=== PATIENT | male | born 1940 | race Caucasian/White ===

== ENCOUNTER 2017-05-27 17:41 | Inpatient (IN) | payer MEDICARE ==
[~2017-05-27] VITALS: Ht 165.1 cm; Wt 52.6 kg
--- NOTE | 2017-05-27 17:50 | NUR ---
DON FROM [facility] DT DESATURATION AND ALTERED MENTAL STATUS. PATIENT IS AWAKE, HOWEVER CONFUSED. APPEARS IN MILD DISTRESS, SATING 95% ON ROOM AIR,. PT IS AFEBRILE. CONNECTED PT TO TELE MONITOR. PENDING MD JASMINE
--- NOTE | 2017-05-27 18:30 | NUR ---
GRADER MARKER AT BEDSIDE FOR BLOOD DRAW.
[2017-05-27 18:34] LABS: BASOPHILS # (AUTO) 0.1 /CMM (0.0-0.2); BASOPHILS % (AUTO) 0.9 % (0.0-2.0); EOSINOPHILS # (AUTO) 0.1 /CMM (0.0-0.7); EOSINOPHILS % (AUTO) 0.5 % (0.0-6.0); HEMATOCRIT 44 % (39-51); HEMOGLOBIN 14.4 g/dL (13.5-17.5); LYMPHOCYTES # (AUTO) 0.8 /CMM (0.8-4.8); LYMPHOCYTES % (AUTO) 4.8 % (20.0-44.0); MEAN CORPUSCULAR HEMOGLOBIN 31 PG (26.0-33.0); MEAN CORPUSCULAR HGB CONC 33 g/dl (31.0-36.0); MEAN CORPUSCULAR VOLUME 96 fL (80-96); MONOCYTES # (AUTO) 0.9 /CMM (0.1-1.30); MONOCYTES % (AUTO) 5.6 % (2.0-12.0); NEUTROPHILS # (AUTO) 13.8 /CMM (1.8-8.9); NEUTROPHILS % (AUTO) 88.2 % (43.0-81.0); PLATELET COUNT (AUTO) 279 /CMM (150-450); RDW COEFFICIENT OF VARIATION 13.5 (11.5-15.0); RED BLOOD CELL COUNT(AUTO) 4.59 MIL/uL (4.5-6.0); WHITE BLOOD COUNT (AUTO) 15.7 K/uL (4.3-11.0)
--- NOTE | 2017-05-27 18:36 | NUR ---
ACCOUNT DIRECTOR AT BEDSIDE.
[2017-05-27 18:53] LABS: INR 1.07 (0.87-1.13); PROTHROMBIN TIME 11.1 SECS (9.5-12.7)
[2017-05-27 19:27] LABS: BAND % (MANUAL) 5 % (0.0-5.0); EOSINOPHILS % (MANUAL) 2 % (0-4); LYMPHOCYTES % (MANUAL) 8 % (16-48); MONOCYTES % (MANUAL) 6 % (0-11.0); NEUTROPHILS % (MANUAL) 79 (42-76)
--- NOTE | 2017-05-27 19:32 | NUR ---
URINE OBTAINED VIA STRAIGHT CATH PER MD ORDERS AND SENT TO LAB.
--- NOTE | 2017-05-27 19:37 | NUR ---
REPORT GIVEN TO AR WEBSTER FOR KRISTOFER.
[2017-05-27 19:39] LABS: TROPONIN I 0.034 ng/mL (0.00-0.056)
[2017-05-27 19:43] LABS: APPEARANCE,URINE Clear (CLEAR); BILIRUBIN,URINE SMALL (NEGATIVE); BLOOD, URINE Small Ery/uL (NEGATIVE); COLOR,URINE Yellow (YELLOW); KETONES,URINE 15 (NEGATIVE); LEUKOCYTE ESTERASE ,URINE Small (NEGATIVE); NITRITE, URINE Negative (NEGATIVE); PH,URINE 5.5 (5.0-8.0); PROTEIN,URINE 100 mg/dl (NEGATIVE); UGLUCOSE Negative (NEGATIVE); UROBILINOGEN,URINE 0.2 EU/dL (0.2)
[2017-05-27 19:45] LABS: ALANINE AMINOTRANSFERASE 20 U/L (12-78); ALBUMIN 3.8 g/dL (3.4-5.0); ALKALINE PHOSPHATASE 88 U/L (46-116); ASPARTATE AMINOTRANSFERASE 17 U/L (15-37); BILIRUBIN,DIRECT 0.2 mg/dL (0.0-0.2); BILIRUBIN,TOTAL 0.7 mg/dL (0.2-1.0); CARBON DIOXIDE 25 mmol/L (21-32); GLUCOSE 105 mg/dL (74-106); TOTAL PROTEIN, SERUM 7.7 g/dL (6.4-8.2); UREA NITROGEN, BLOOD 59 mg/dL (7-18)
--- NOTE | 2017-05-27 19:46 | NUR ---
CALLED NURSING SUP. FOR TELE BED
[2017-05-27 19:52] LABS: SODIUM SERUM 166 mmol/L (136-145)
[2017-05-27 19:53] LABS: CHLORIDE 127 mmol/L (98-107)
[2017-05-27 20:21] LABS: BACTERIA,URINE Many /HPF (None Seen); SQUAMOUS EPITHELIAL CELL,UR Few /HPF (None Seen)
[2017-05-27] MEDS ORDERED: PIPERACILLIN /TAZOBACTAM 3.375 G in IV D5W 50 ML IV ONE (20:30)
[2017-05-27] MEDS ORDERED: LEVOFLOXACIN 750 MG /D5W 150ML 150 ML IV ONE ×2 (20:30)
[2017-05-27] MEDS ORDERED: PIPERACILLIN /TAZOBACTAM 3.375 G VIAL IV ONE (20:31)
[2017-05-27] MEDS ORDERED: IV NS 0.9% 500 ML BAG IV ONE (21:00)
[2017-05-27] MEDS ORDERED: CARB1TAB40 PO (21:04)
[2017-05-27] MEDS ORDERED: AMLO5TAB4 PO (21:04)
[2017-05-27] MEDS ORDERED: METO25TA6 PO (21:04)
[2017-05-27] MEDS ORDERED: NA P133E RC (21:04)
[2017-05-27] MEDS ORDERED: ACET-868 PO (21:04)
[2017-05-27] MEDS ORDERED: AMAN100T PO (21:04)
[2017-05-27] MEDS ORDERED: CARB1TAB24 PO (21:04)
[2017-05-27] MEDS ORDERED: DOCU-25 PO (21:04)
[2017-05-27] MEDS ORDERED: VITAMIN D2 PO (21:04)
[2017-05-27] MEDS ORDERED: MAGN2400 PO (21:04)
[2017-05-27] MEDS ORDERED: BISA10SU8 RC (21:04)
[2017-05-27] MEDS ORDERED: RIVA10TA PO (21:04)
--- NOTE | 2017-05-27 21:42 | NUR ---
Report given to Jose JOYNER for admission and ji.
--- NOTE | 2017-05-27 22:05 | NUR ---
Transferred patient to tele 116 via als protocol, no incident noted.
[2017-05-27] MEDS ORDERED: CEFTRIAXONE 1 G VIAL ONE (22:15)
[2017-05-27 22:30] VITALS: BP 129/74
[2017-05-27] MEDS ORDERED: ACETAMINOPHEN 650 MG/SUPP.RECT RC PRN (22:30)
[2017-05-27] MEDS ORDERED: ENOXAPARIN SODIUM 30 MG/0.3 ML DISP.SYRIN SQ SCH (22:30)
[2017-05-27] MEDS ORDERED: ONDANSETRON HCL/PF 4 MG/2 ML VIAL IV PRN (22:30)
[2017-05-27] MEDS ORDERED: NA PHOS,M-B/NA PHOS,DI-BA 1 EA ENEMA RC PRN (23:00)
[2017-05-27] MEDS ORDERED: BISACODYL SUPP (10 MG) 10 MG/SUPP.RECT SUPP.RECT RC PRN (23:00)
--- NOTE | 2017-05-27 23:00 | NUR ---
Received patient from ED via gurney awake but aphasic and confused.Transferred to bed and made comfortable.Dx:SEPSIS,UTI.VS stable.Tele SR 90.with O2 2L NC saturation 97%.Respiration even and unlabored.No s/s of pain noted Admission assessment done.Fall,skin and aspiration precaution implemented.Turned and repositioned. Continue monitoring.Call light within easy reach.
[2017-05-27] MEDS: CEFTRIAXONE 1 G in IV D5W 50 ML IV SCH (23:01)
[2017-05-27] MEDS: IV D5/0.45 NACL 1,000 ML IV PRN (23:02)
[2017-05-27] MEDS ORDERED: ENOXAPARIN SODIUM 30 MG/0.3 ML DISP.SYRIN ONE (23:07)
[2017-05-27] MEDS ORDERED: PANTOPRAZOLE 40 MG VIAL ONE (23:07)
[2017-05-27] MEDS: PANTOPRAZOLE 40 MG VIAL IV SCH (23:33)
[2017-05-28 04:00] VITALS: BP 116/70
--- NOTE | 2017-05-28 06:30 | NUR ---
Patient status unchanged.VS stable.No urine output noted during the shift.Bladder scan done only 28 ml.IVF infusing well.Paged paged for order.Will endorsed to AM shift RN to follow for continuity of care.No distress noted.
[2017-05-28] MEDS ORDERED: IV NS 0.9% 500 ML BAG IV ONE (07:00)
--- NOTE | 2017-05-28 07:02 | NUR ---
returned call and updated of patient status.Orders received and carried out. NS 500 ml bolus started,Bagley Catheter Fr # 16 inserted by AR Caban no urine output noted at this time.Will endorse to incoming RN for continuity of care.
--- NOTE | 2017-05-28 07:10 | NUR ---
RN INITIAL NOTES RECEIVED PT IN BED, HOB ELEVATED. OPEN EYES UPON TACTILE STIMULI. ON 02 AT 2LPM VIA NC. NO RESPIRATORY DISTRESS NOTED. NO SOB NOTED. NO SIGNS OF PAIN NOTED. ON TELE MONITOR. IV LINES IN PLACE. NS 500ML BOLUS INFUSING. FC IN PLACE. NO OUTPUT NOTED, MD AWARE. WILL CONTINUE TO MONITOR. WILL INSERT NGT PER MD ORDER. BLE ELEVATED. PT COMFORTABLE. WILL CLOSELY MONITOR.
[2017-05-28 07:45] LABS: BASOPHILS % (AUTO) 0.1 % (0.0-2.0); EOSINOPHILS # (AUTO) 0.1 /CMM (0.0-0.7); EOSINOPHILS % (AUTO) 0.7 % (0.0-6.0); HEMATOCRIT 36 % (39-51); HEMOGLOBIN 11.9 g/dL (13.5-17.5); LYMPHOCYTES # (AUTO) 0.6 /CMM (0.8-4.8); LYMPHOCYTES % (AUTO) 6.2 % (20.0-44.0); MEAN CORPUSCULAR HEMOGLOBIN 32 PG (26.0-33.0); MEAN CORPUSCULAR HGB CONC 33 g/dl (31.0-36.0); MEAN CORPUSCULAR VOLUME 96 fL (80-96); MONOCYTES # (AUTO) 0.7 /CMM (0.1-1.30); MONOCYTES % (AUTO) 6.6 % (2.0-12.0); NEUTROPHILS # (AUTO) 8.9 /CMM (1.8-8.9); NEUTROPHILS % (AUTO) 86.4 % (43.0-81.0); PLATELET COUNT (AUTO) 197 /CMM (150-450); RDW COEFFICIENT OF VARIATION 14.4 (11.5-15.0); RED BLOOD CELL COUNT(AUTO) 3.73 MIL/uL (4.5-6.0); WHITE BLOOD COUNT (AUTO) 10.3 K/uL (4.3-11.0)
[2017-05-28 08:00] VITALS: BP 131/71
--- NOTE | 2017-05-28 08:00 | NUR ---
RN NOTES CALLED DR. CAM REGARDING CRITICAL VALUE OF SODIUM: 165 FROM 166 AND CHLORIDE 130 FROM 127. PAGED. AWAITING CALL BACK. NO CHANGE IN LOC NOTED. WILL CLOSELY MONITOR
[2017-05-28 08:07] LABS: CALCIUM, SERUM 8.6 mg/dL (8.5-10.1); CARBON DIOXIDE 24 mmol/L (21-32); CREATININE 1.9 mg/dL (0.6-1.3); GLUCOSE 116 mg/dL (74-106); MAGNESIUM 2.4 mg/dL (1.8-2.4); PHOSPHORUS 1.8 mg/dL (2.5-4.9); POTASSIUM 3.3 mmol/L (3.5-5.1); UREA NITROGEN, BLOOD 51 mg/dL (7-18)
[2017-05-28 08:15] LABS: SODIUM SERUM 165 mmol/L (136-145)
[2017-05-28 08:16] LABS: CHLORIDE 130 mmol/L (98-107)
[2017-05-28] MEDS: IV D5/0.45 NACL 1,000 ML IV PRN (08:42)
--- NOTE | 2017-05-28 09:16 | NUR ---
WOUND CARE CONSULT: PT PRESENTS EXTREMELY THIN AND BONY WITH SEVERAL DRY ABRASIONS NOTED TO LOWER EXTREMITIES. RECOMMENDATIONS MADE FOR SKIN PROTECTION. DISCUSSED WITH NURSING STAFF. CURRENT QUYEN SCORE IS 12. PT TO BE PLACED ON ISOFLEX LOW AIRLOSS BED. ALL SKIN PROTECTION MEASURES IN PLACE. WILL SEE PRN. SIMMONS IN AGREEMENT WITH PLAN OF CARE. Addendum: 05/28/17 at 0917 by BELINDA ASHFORD WNDNU Amended: Links added.
[2017-05-28] MEDS ORDERED: ACETAMINOPHEN 325 MG TABLET PO PRN (09:30)
[2017-05-28] MEDS ORDERED: CARBIDOPA/LEVODOPA 25/250 MG 1 UDTAB PO SCH (09:30)
[2017-05-28] MEDS ORDERED: NA PHOS,M-B/NA PHOS,DI-BA 1 EA ENEMA RC PRN (09:30)
[2017-05-28] MEDS ORDERED: MAGNESIUM HYDROXIDE 30 ML UDC PO PRN (09:30)
[2017-05-28] MEDS ORDERED: BISACODYL SUPP (10 MG) 10 MG/SUPP.RECT SUPP.RECT RC PRN (09:30)
[2017-05-28] MEDS ORDERED: Z GUARD REMEDY 2 OZ OINT TP PRN (09:30)
[2017-05-28] MEDS ORDERED: DOCUSATE SODIUM 100 MG CAPSULE PO SCH (09:30)
[2017-05-28] MEDS: METOPROLOL TARTRATE 25 MG TABLET PO SCH (10:26)
[2017-05-28] MEDS: AMANTADINE HCL 100 MG CAPSULE PO SCH ×2 (10:26→16:34)
[2017-05-28] MEDS ORDERED: IV D5/0.45 NACL 1,000 ML IV PRN (10:30)
[2017-05-28] MEDS: Z GUARD REMEDY 2 OZ OINT TP SCH (11:18)
[2017-05-28 12:00] VITALS: BP 150/63
[2017-05-28] MEDS: Potassium Chloride 20 MEQ in IV D5W 1,000 ML IV PRN ×2 (13:46→19:59)
--- NOTE | 2017-05-28 14:00 | NUR ---
RN NOTES SEEN AND EXAMINED BY DR. CAM. AWARE OF CURRENT LAB VALUES: WBC 10.3, HGB 11.9, HCT 36, SODIUM 165 FROM 166, POTASSIUM 3.3, CHLORIDE 130, BUN 51, CREA 1.9. PT ON IVF: D5W+KCL 20MEQ AT 150ML/HR. DIETARY RECOMMENDATION RELAYED TO MD AND ORDERED MVI AND THIAMINE QD AND GTF: FIBERSOURCE AT 15ML/HR, GOAL 45ML/HR. ORDERS NOTED AND CARRIED OUT.
[2017-05-28] MEDS: FIBERSOURCE HN 1,000 ML BOTTLE GT PRN (15:27)
[2017-05-28 16:00] VITALS: BP_SYST 123; BP_SYST 93; BP_DIAS 51
[2017-05-28] MEDS ORDERED: K PHOS NEUTRAL 250 MG TABLET PO ONE (16:30)
[2017-05-28] MEDS: CARBIDOPA/LEVODOPA 25/250 MG 1 UDTAB PO SCH (16:32)
[2017-05-28] MEDS: RIVAROXABAN 10 MG TABLET PO SCH (16:41)
--- NOTE | 2017-05-28 19:02 | NUR ---
RN CLOSING NOTES NO CHANGE IN LOC NOTED. ON 02 AT 2LPM VIA NC. NO RESPIRATORY DISTRESS NOTED. NO SIGNS OF PAIN NOTED. OG IN PLACE. TOELRATING GTF WELL. NO RESIDUAL NOTED. IV LINES IN PLACE. TOLERATING IVF WELL. FC IN PLACE. LOW OUTPUT NOTED, MD AWARE. KEPT CLEAN AND DRY. REPOSITIONED Q2. BLE ELEVATED. WILL ENDORSE FOR CONTINUITY OF CARE.
--- NOTE | 2017-05-28 19:30 | NUR ---
DEVORA RN INITIAL NOTE RECEIVED REPORT FROM NAKUL JOYNER. PT IN BED AWAKE. PT IS RESTRAINED BUT NGT IS OUT. LUNG SOUNDS RHONCHI. BOWEL SOUNDS PRESENT. INCONTINENT TO STOOL AND URINE. SACRAL REDNESS. IV PATENT AND INTACT. PULSES PRESENT. WILL REATTEMPT NGT INSERTION. BED IN LOW LOCKED POSITION. WILL CONTINUE TO MONITOR.
--- NOTE | 2017-05-28 19:45 | NUR ---
DEVORA RN NGT PLACED. CONFIRMED PLACEMENT WITH AUSCULTAION. WILL ORDER XRAY FOR PLACEMENT PRIOR TO STARTING FEEDING. WILL CONTINUE TO MONITOR.
[2017-05-28 20:00] VITALS: BP 92/52
[2017-05-28] MEDS ORDERED: ENOXAPARIN SODIUM 30 MG/0.3 ML DISP.SYRIN SQ SCH ×2 (21:00)
[2017-05-28] MEDS: PANTOPRAZOLE 40 MG VIAL IV SCH (22:29)
[2017-05-28] MEDS: CEFTRIAXONE 1 G in IV D5W 50 ML IV SCH (22:29)
--- NOTE | 2017-05-28 22:30 | NUR ---
DEVORA RN REVIEWED CXR. RECOMMENDED TO REMOVE BGT DUE TO COILING. WILL REMOVE AND REATTEMPT PLACEMENT. WILL CONTINUE TO MONITOR.
[2017-05-28] MEDS ORDERED: CEFTRIAXONE 1 G in IV D5W 50 ML IV SCH (23:00)
[2017-05-29] VITALS: BP 119/63
--- NOTE | 2017-05-29 | NUR ---
DEVORA RN RE ATTEMPTED NGT PLACEMENT. SUCCESSFUL PLACEMENT WITH AUSCULTATION, CXR ORDERED FOR POSITIVE PLACEMENT. WILL RESUME FEEDING SOON NGT IN PLACE. WILL CONTINUE TO MONITOR.
[2017-05-29] MEDS: Potassium Chloride 20 MEQ in IV D5W 1,000 ML IV PRN ×3 (03:55→22:00)
[2017-05-29 04:00] VITALS: BP 120/58
--- NOTE | 2017-05-29 07:05 | NUR ---
DEVORA INITIAL NOTE RECEIVED PT AWAKE, UNABLE TO FOLLOW SIMPLE COMMANDS. BILATERAL SOFT WRIST RESTRAINTS IN PLACE. ON 2L NC, RESPIRATIONS EVEN AND UNLABORED, NO SOB OR DISTRESS PRESENT. TELE MONITOR REVEALS SINUS RHYTHM,HR= 74. LEBLANC CATHETER PRESENT AND DRAINING TO GRAVITY. LEFT NARE NGT RUNNING FIBERSOURCE @ 15 ML/HR. BOTH IVS NON-FUNCTIONAL (INFILTRATED/ LEAKING), NEW IV TO BE INSERTED. SAFETY MEASURES TAKEN: BED LOCKED AND IN LOW POSITION, SIDE RAILS UP X2 AND BED ALARM ON, WILL CONTINUE TO MONITOR.
[2017-05-29 08:00] VITALS: BP 118/56
[2017-05-29 08:32] LABS: CALCIUM, SERUM 8.6 mg/dL (8.5-10.1); CARBON DIOXIDE 22 mmol/L (21-32); CHLORIDE 120 mmol/L (98-107); CREATININE 1.6 mg/dL (0.6-1.3); GLUCOSE 155 mg/dL (74-106); POTASSIUM 3.3 mmol/L (3.5-5.1); SODIUM SERUM 153 mmol/L (136-145); UREA NITROGEN, BLOOD 35 mg/dL (7-18)
[2017-05-29 08:44] LABS: BASOPHILS % (AUTO) 0.1 % (0.0-2.0); EOSINOPHILS # (AUTO) 0.1 /CMM (0.0-0.7); EOSINOPHILS % (AUTO) 0.9 % (0.0-6.0); HEMATOCRIT 35 % (39-51); HEMOGLOBIN 11.5 g/dL (13.5-17.5); LYMPHOCYTES # (AUTO) 0.6 /CMM (0.8-4.8); LYMPHOCYTES % (AUTO) 4.3 % (20.0-44.0); MEAN CORPUSCULAR HEMOGLOBIN 32 PG (26.0-33.0); MEAN CORPUSCULAR HGB CONC 33 g/dl (31.0-36.0); MEAN CORPUSCULAR VOLUME 96 fL (80-96); MONOCYTES # (AUTO) 0.5 /CMM (0.1-1.30); MONOCYTES % (AUTO) 3.7 % (2.0-12.0); NEUTROPHILS # (AUTO) 13.4 /CMM (1.8-8.9); PLATELET COUNT (AUTO) 154 /CMM (150-450); RDW COEFFICIENT OF VARIATION 14.3 (11.5-15.0); RED BLOOD CELL COUNT(AUTO) 3.61 MIL/uL (4.5-6.0); WHITE BLOOD COUNT (AUTO) 14.7 K/uL (4.3-11.0)
[2017-05-29] MEDS: CARBIDOPA/LEVODOPA 25/250 MG 1 UDTAB PO SCH ×2 (08:49→16:09)
[2017-05-29] MEDS: AMANTADINE HCL 100 MG CAPSULE PO SCH ×2 (08:49→16:09)
[2017-05-29] MEDS: MULTIVITAMINS,THERAGRAN 1 UDTAB TABLET NG SCH (08:49)
[2017-05-29] MEDS: DOCUSATE SODIUM LIQ 100 MG/10 ML UDC NG SCH (08:49)
[2017-05-29] MEDS: Z GUARD REMEDY 2 OZ OINT TP SCH (08:49)
[2017-05-29] MEDS: THIAMINE HCL 100 MG TABLET NG SCH (08:49)
[2017-05-29] MEDS: METOPROLOL TARTRATE 25 MG TABLET PO SCH (08:50)
[2017-05-29] MEDS ORDERED: PANTOPRAZOLE 40 MG VIAL IV SCH (09:00)
[2017-05-29 12:00] VITALS: BP_SYST 103; BP_SYST 91; BP_DIAS 53; BP_DIAS 55
[2017-05-29] MEDS ORDERED: POTASSIUM CHLORIDE 10 MEQ/50 ML PREMIXED IVPB FOR PERIPHERAL LINE IV ONE (13:15)
[2017-05-29 16:00] VITALS: BP 110/62
[2017-05-29] MEDS: RIVAROXABAN 10 MG TABLET PO SCH (16:08)
[2017-05-29] MEDS: FIBERSOURCE HN 1,000 ML BOTTLE GT PRN (16:08)
[2017-05-29 20:00] VITALS: BP_SYST 105; BP_SYST 120; BP_DIAS 55; BP_DIAS 73
--- NOTE | 2017-05-29 21:27 | NUR ---
TILE MECHANIC HELPER. INITIAL ASSESSMENT. RECEIVED THE PT REST ON THE BED. PT IS LETHARGIC. DOES NOT FOLLOW COMMANDS. OXYGEN 2L VIA NASAL CANNULA. SAT 98%. NO ACUTE DISTRESS NOTED. HEAD MEN'S TENNIS COACH SHOWING NSR, IV LT FA D5WIN POTASSIUM 20MEQ 150ML/H. LT NARE NGT INTACT. FIBER SOURCE 60ML/H. HOB ELEVATED. JOSEPHINE SOFT WRIST RESTRAINT CHECKED AND RELEASED. NO INJURY OR REDNESS NOTED. TURN AND REPOSITION Q2H. FC PATENT. WILL CONTINUE TO MONITOR VITALS.
[2017-05-29] MEDS: CEFTRIAXONE 1 G in IV D5W 50 ML IV SCH (22:00)
[2017-05-29] MEDS: PANTOPRAZOLE 40 MG VIAL IV SCH (22:00)
[2017-05-30] VITALS: BP_SYST 110; BP_SYST 126; BP_DIAS 56; BP_DIAS 68
--- NOTE | 2017-05-30 03:09 | NUR ---
RN NOTE AM CARE, ORAL CARE, BED BATH GIVEN. LINEN CHANGED, REMAINING SAME OXYGEN TOLERATED WELL. SAT 98%. NO ACUTE DISTRESS NOTED. INTERPRETER FOR THE DEAF SHOWING NSR. IV LT HAND 20G. IVF D5NS IN 20 MEQ POTASSIUM 150ML/H. FC PATENT. HOB ELEVATED. TURN AND REPOSITION Q2H. NGT FEEDING TOLERATED WELL. WILL CONTINUE TO MONITOR VITALS.
[2017-05-30 04:00] VITALS: BP_SYST 120; BP_SYST 136; BP_DIAS 70
[2017-05-30] MEDS: Potassium Chloride 20 MEQ in IV D5W 1,000 ML IV PRN ×2 (05:49→16:50)
--- NOTE | 2017-05-30 07:00 | NUR ---
SOFTWARE TEST MANAGER NOTE: RECEIVED PATIENT RESTING IN BED. PATIENT IS LETHARGIC. ON 2LPM O2 VIA NC, RESPIRATIONS EVEN AND UNLABORED WITH NO SOB NOTED. ON TELE WITH SR BBB, 74. LFA IV RUNNING WITH D5W +20KCL AT 150CC/HR. L NARE NGT INTACT WITH FIBERSOURCE RUNNING AT 15ML/HR. BL SOFT WRIST RESTRAINTS WITH PULSES PRESENT. LEBLANC CATH DRAINING TO GRAVITY WITH YELLOW URINE. DVT PUMPS NOTED. HOB ELEVATED, BED LOW, SIDE RAILS UP AND CALL LIGHT WITHIN REACH. WILL CONT TO MONITOR.
[2017-05-30 08:00] VITALS: BP 109/55
[2017-05-30 10:15] LABS: EOSINOPHILS # (AUTO) 0.3 /CMM (0.0-0.7); EOSINOPHILS % (AUTO) 1.4 % (0.0-6.0); HEMATOCRIT 34 % (39-51); HEMOGLOBIN 11.4 g/dL (13.5-17.5); LYMPHOCYTES # (AUTO) 0.6 /CMM (0.8-4.8); LYMPHOCYTES % (AUTO) 3.1 % (20.0-44.0); MEAN CORPUSCULAR HEMOGLOBIN 32 PG (26.0-33.0); MEAN CORPUSCULAR HGB CONC 34 g/dl (31.0-36.0); MEAN CORPUSCULAR VOLUME 96 fL (80-96); MONOCYTES # (AUTO) 0.7 /CMM (0.1-1.30); MONOCYTES % (AUTO) 3.6 % (2.0-12.0); NEUTROPHILS # (AUTO) 17.3 /CMM (1.8-8.9); NEUTROPHILS % (AUTO) 91.9 % (43.0-81.0); PLATELET COUNT (AUTO) 136 /CMM (150-450); WHITE BLOOD COUNT (AUTO) 18.8 K/uL (4.3-11.0)
[2017-05-30 10:27] LABS: CALCIUM, SERUM 8.3 mg/dL (8.5-10.1); CARBON DIOXIDE 23 mmol/L (21-32); CHLORIDE 111 mmol/L (98-107); CREATININE 1.1 mg/dL (0.6-1.3); GLUCOSE 163 mg/dL (74-106); POTASSIUM 3.7 mmol/L (3.5-5.1); SODIUM SERUM 143 mmol/L (136-145); UREA NITROGEN, BLOOD 21 mg/dL (7-18)
[2017-05-30 10:32] LABS: ALANINE AMINOTRANSFERASE 16 U/L (12-78); ALBUMIN 2.1 g/dL (3.4-5.0); ALKALINE PHOSPHATASE 72 U/L (46-116); ASPARTATE AMINOTRANSFERASE 15 U/L (15-37); BILIRUBIN,TOTAL 0.5 mg/dL (0.2-1.0); TOTAL PROTEIN, SERUM 5.4 g/dL (6.4-8.2)
[2017-05-30] MEDS: CARBIDOPA/LEVODOPA 25/250 MG 1 UDTAB PO SCH ×2 (12:29→16:47)
[2017-05-30] MEDS: MULTIVITAMINS,THERAGRAN 1 UDTAB TABLET NG SCH (12:29)
[2017-05-30] MEDS: THIAMINE HCL 100 MG TABLET NG SCH (12:29)
[2017-05-30] MEDS: AMANTADINE HCL 100 MG CAPSULE PO SCH ×2 (12:29→16:47)
[2017-05-30] MEDS: DOCUSATE SODIUM LIQ 100 MG/10 ML UDC NG SCH (12:30)
[2017-05-30] MEDS: Z GUARD REMEDY 2 OZ OINT TP SCH (12:32)
[2017-05-30] MEDS: METOPROLOL TARTRATE 25 MG TABLET PO SCH (12:43)
[2017-05-30 16:00] VITALS: BP 95/52
[2017-05-30] MEDS: RIVAROXABAN 10 MG TABLET PO SCH (16:49)
[2017-05-30] MEDS: FIBERSOURCE HN 1,000 ML BOTTLE GT PRN (18:00)
--- NOTE | 2017-05-30 18:23 | NUR ---
DEVORA RN NOTE: NO ACUTE CHANGES DURING SHIFT. ON TELE MONITOR WITH SR 76. LFA IV RUNNING WITH D5W + 20KCL AT 150CC/HR. L NARE NGT PATENT WITH FIBERSOURCE RUNNING AT 25ML/HR. LEBLANC CATH DRAINING TO GRAVITY. BL ARM SLEEVES ON. ORDERS CARRIED OUT. HOB ELEVATED, BED LOW, LOCKED, X2 SIDE RAILS UP AND CALL LIGHT WITHIN REACH. WILL ENDORSE TO ANIMAL RESCUER NURSE FOR KRISTOFER.
[2017-05-30 20:00] VITALS: BP 114/63
--- NOTE | 2017-05-30 20:00 | NUR ---
THEATRICAL PERFORMER - REC'D PT. QUIET, PT. CAN ANSWER SLOWLY TO QUESTIONS ASKED. PT. HAS BEEN KNOWN TO YELL ALOUD IF HE NEEDS SOMETHING. VSS. AFEBRILE. LEBLANC CATH TO GRAVITY. HEART MONITOR SHOWS SR/70'S & SBP'S IN THE TEENS. PT.IS ON O2/2L/NC W/O2 SATS AT 98%. LEFT NARES NGT HAD FIBERSOURCE INFUSING AT 25CC/HR. GOAL IS 45CC/HR. NO RESIDUALS NOTED. LEBLANC CATH TO GRAVITY. ALL PULSES PALPABLE X 4 EXT. PT. HAS "SLEEVES COVERING BUE'S/LOWER PART OF ARMS. PIV TO LFA HAD D5W W/20 MEQ KCL INFUSING AT 150CC/HR VIA CANTU PUMP. PUMP ALARMS SET. CONT.POC.
[2017-05-30] MEDS: PANTOPRAZOLE 40 MG VIAL IV SCH (22:13)
[2017-05-30] MEDS: CEFTRIAXONE 1 G in IV D5W 50 ML IV SCH (22:13)
[2017-05-31] VITALS: BP 112/61
--- NOTE | 2017-05-31 | NUR ---
JAVA MANAGER - NO CHANGES FROM INITIAL ASSESSMENT. AT 22:00, FIBERSOURCE TF WAS INCREASED TO 35CC/HR. WILL SEE IF PT. CAN TOLERATE FDG. X 4 HRS. THEN INCREASE TO 45CC/HR/GOAL. +PLACEMENT VIA LEFT NARES NGT AUSC. PT.WAS ADM. A COMPLETE BEDBATH AT SC. W/ORAL,NGT,EMMY & SKIN/WOUND CARE ADM. CONT.POC.
[2017-05-31] MEDS: Potassium Chloride 20 MEQ in IV D5W 1,000 ML IV PRN ×2 (01:13→21:59)
[2017-05-31 04:00] VITALS: BP 118/66
--- NOTE | 2017-05-31 04:00 | NUR ---
ASSISTANT INFANT TEACHER - PT'S ONLY PIV INFILTRATED. MANY ATTEMPTS TO RESTART PIV BY SEVERAL RN'S WERE UNSUCCESSFUL. RIZWAN-DONNA PHONED TO LET RN'S AILYN &/OR DANNIE PLACED MIDLINE/VS/PICC LINE. WILL ENDORSE TO DAYSHIFT RN. CONT.POC.
--- NOTE | 2017-05-31 07:05 | NUR ---
RN INITIAL NOTE PATIENT RECEIVED IN BED RESTING. NO S/S OF PAIN OR DISCOMFORT. PATIENT IS NONVERBAL. SINUS RHYTHM ON TELE MONITOR. RESPIRATIONS ARE EVEN AND UNLABORED. NO S/S OF RESPIRATORY DISTRESS OR SOB. SATING WELL ON 2L NASAL CANULA LEBLANC CATHETER DRAINING TO GRAVITY. NG TUBE PATENT. PLACEMENT VERIFIED. TOLERATING FEEDING WELL. SKIN IS WARM AND DRY TO TOUCH. SAFETY PRECAUTIONS IMPLEMENTED, BED IN LOCKED, LOW POSITION WITH TWO SIDE RAILS UP. WILL CONTINUE TO MONITOR CLOSELY
--- NOTE | 2017-05-31 07:15 | NUR ---
MOTION PICTURE SCENE BUILDER - VERBAL REPORT ENDORSED TO KATHERIN JOYNER. RN AWARE OF PIV SITUATION. NO CHANGES FROM PREVIOUS ASSESSMENTS. CONT.POC.
[2017-05-31 07:52] LABS: EOSINOPHILS # (AUTO) 0.2 /CMM (0.0-0.7); EOSINOPHILS % (AUTO) 1.5 % (0.0-6.0); HEMATOCRIT 34 % (39-51); HEMOGLOBIN 11.6 g/dL (13.5-17.5); LYMPHOCYTES # (AUTO) 0.7 /CMM (0.8-4.8); LYMPHOCYTES % (AUTO) 4.3 % (20.0-44.0); MEAN CORPUSCULAR HEMOGLOBIN 33 PG (26.0-33.0); MEAN CORPUSCULAR HGB CONC 34 g/dl (31.0-36.0); MEAN CORPUSCULAR VOLUME 97 fL (80-96); MONOCYTES # (AUTO) 0.7 /CMM (0.1-1.30); MONOCYTES % (AUTO) 4.3 % (2.0-12.0); NEUTROPHILS # (AUTO) 13.9 /CMM (1.8-8.9); NEUTROPHILS % (AUTO) 89.9 % (43.0-81.0); PLATELET COUNT (AUTO) 132 /CMM (150-450); RDW COEFFICIENT OF VARIATION 14.1 (11.5-15.0); RED BLOOD CELL COUNT(AUTO) 3.54 MIL/uL (4.5-6.0); WHITE BLOOD COUNT (AUTO) 15.5 K/uL (4.3-11.0)
[2017-05-31 08:00] VITALS: BP 129/69
[2017-05-31 08:25] LABS: CALCIUM, SERUM 8.3 mg/dL (8.5-10.1); CARBON DIOXIDE 23 mmol/L (21-32); CHLORIDE 109 mmol/L (98-107); GLUCOSE 130 mg/dL (74-106); POTASSIUM 3.6 mmol/L (3.5-5.1); SODIUM SERUM 141 mmol/L (136-145); UREA NITROGEN, BLOOD 16 mg/dL (7-18)
[2017-05-31] MEDS: DOCUSATE SODIUM LIQ 100 MG/10 ML UDC NG SCH (08:58)
[2017-05-31] MEDS: MULTIVITAMINS,THERAGRAN 1 UDTAB TABLET NG SCH (08:58)
[2017-05-31] MEDS: THIAMINE HCL 100 MG TABLET NG SCH (08:58)
[2017-05-31] MEDS: CARBIDOPA/LEVODOPA 25/250 MG 1 UDTAB PO SCH ×2 (08:59→17:07)
[2017-05-31] MEDS: AMANTADINE HCL 100 MG CAPSULE PO SCH ×2 (08:59→17:07)
[2017-05-31] MEDS: Z GUARD REMEDY 2 OZ OINT TP SCH (08:59)
[2017-05-31] MEDS: METOPROLOL TARTRATE 25 MG TABLET PO SCH (09:00)
[2017-05-31 12:00] VITALS: BP 106/59
[2017-05-31 16:00] VITALS: BP 128/59
[2017-05-31] MEDS: RIVAROXABAN 10 MG TABLET PO SCH (17:00)
--- NOTE | 2017-05-31 18:45 | NUR ---
RN CLOSING NOTE CARRIED OUT ALL MD ORDERS, PATIENTS NEEDS ANTICIPATED. KEPT PATIENT CLEAN AND DRY. SAFETY PRECAUTIONS IN PLACE AT ALL TIMES. WILL GIVE REPORT TO PM RN FOR KRISTOFER.
[2017-05-31] MEDS: FIBERSOURCE HN 1,000 ML BOTTLE GT PRN (19:12)
[2017-05-31 20:00] VITALS: BP 103/61
--- NOTE | 2017-05-31 20:00 | NUR ---
ADMINISTRATIVE FELLOW: PATIENT RECEIVED IN BED RESTING. NO S/S OF PAIN OR DISCOMFORT. PATIENT IS NONVERBAL. SINUS RHYTHM ON TELE MONITOR. RESPIRATIONS ARE EVEN AND UNLABORED. NO S/S OF RESPIRATORY DISTRESS OR SOB. ON 2L NASAL CANULA. LEBLANC CATHETER DRAINING TO GRAVITY. NG TUBE PATENT. PLACEMENT VERIFIED, ONGOING FIBERSOURCE AT 55 ML/HR, NO RESIDUAL. TOLERATING FEEDING WELL. SKIN IS WARM AND DRY TO TOUCH. NO IV ACCESS UPON ON REPORT SINCE LAST NIGHT, NEW IV ACCESS INSERTED ON LEFT ARM # 20 WITH GOOD BLOOD RETURNS, CONNECTED TO D5W WITH 20 KCL AT 150 ML/HR SAFETY PRECAUTIONS IMPLEMENTED, BED IN LOCKED, LOW POSITION WITH TWO SIDE RAILS UP. KEEP MONITORING.....
[2017-05-31] MEDS: PANTOPRAZOLE 40 MG VIAL IV SCH (21:59)
[2017-05-31] MEDS: CEFTRIAXONE 1 G in IV D5W 50 ML IV SCH (21:59)
[2017-06-01] VITALS: BP 126/68
[2017-06-01 04:00] VITALS: BP 142/74
--- NOTE | 2017-06-01 06:11 | NUR ---
SPRAYER AUTOMATIC SPRAY MACHINE: COMPLETE BED BATH GIVEN, PT IS IN STABLE CONDITION, NO DISTRESS. DENIED PAIN. ADEQUATE URINE OUTPUT NOTED. WILL ENDORSE CARE TO NEXT SHIFT.
--- NOTE | 2017-06-01 07:05 | NUR ---
RN INITIAL NOTE PATIENT RECEIVED IN BED RESTING. NO S/S OF PAIN OR DISCOMFORT. ABLE TO MAKE NEEDS KNOWN. DENIES PAIN AT THIS TIME. RESPIRATIONS ARE EVEN AND UNLABORED. SATING WELL ON 2L NASAL CANULA.SINUS RHYTHM ON TELE MONITOR. HEART RATE 50-70'S. IV SITE FLUSHED, PATENT. LEBLANC CATHETER DRAINING TO GRAVITY. NG FLUSHED,PATENT, PLACEMENT VERIFIED. SKIN IS WARM AND DRY TO TOUCH. SAFETY PRECAUTIONS IMPLEMENTED, BED IN LOCKED, LOW POSITION WITH TWO SIDE RAILS UP. CALL LIGHT AND BELONGINGS WITHIN EASY REACH. WILL CONTINUE TO MONITOR CLOSELY.
[2017-06-01 08:00] VITALS: BP_SYST 142; BP_SYST 147; BP_DIAS 79
[2017-06-01] MEDS: MULTIVITAMINS,THERAGRAN 1 UDTAB TABLET NG SCH (08:49)
[2017-06-01] MEDS: AMANTADINE HCL 100 MG CAPSULE PO SCH ×2 (08:49→19:05)
[2017-06-01] MEDS: CARBIDOPA/LEVODOPA 25/250 MG 1 UDTAB PO SCH ×2 (08:49→19:06)
[2017-06-01] MEDS: DOCUSATE SODIUM LIQ 100 MG/10 ML UDC NG SCH (08:49)
[2017-06-01] MEDS: THIAMINE HCL 100 MG TABLET NG SCH (08:49)
[2017-06-01] MEDS: METOPROLOL TARTRATE 25 MG TABLET PO SCH (08:50)
[2017-06-01] MEDS: Z GUARD REMEDY 2 OZ OINT TP SCH (08:50)
[2017-06-01] MEDS: Potassium Chloride 20 MEQ in IV D5W 1,000 ML IV PRN ×2 (08:51→18:24)
[2017-06-01 12:00] VITALS: BP 130/75
[2017-06-01 16:00] VITALS: BP 118/71
[2017-06-01] MEDS: RIVAROXABAN 10 MG TABLET PO SCH (17:00)
--- NOTE | 2017-06-01 19:24 | NUR ---
RN CLOSING NOTE CARRIED OUT ALL MD ORDERS, PATIENTS NEEDS ANTICIPATED. PATIENT KEPT CLEAN AND DRY. WILL GIVE REPORT TO PM RN FOR KRISTOFER.
[2017-06-01 20:00] VITALS: BP_SYST 111; BP_SYST 117; BP_DIAS 61; BP_DIAS 69
--- NOTE | 2017-06-01 20:05 | NUR ---
MS/RN NOTES RECEIVED PT. LYING IN BED. AWAKE, ALERT AND ORIENTED X1-2. BREATHING EVEN AND UNLABORED ON 2LPM O2 VIA NC. NO SOB, RESPIRATORY DISTRESS OR COMPLAINTS OF PAIN NOTED AT THIS TIME. PT. WITH NGT TO LEFT NOSTRIL PRESENT, PATENT AND INTACT ADMINISTERING TO PT. FIBERSOURCE @ 55ML/HR. PT. TOLERATING WELL. NO RESIDUAL NOTED AT THIS TIME. PT. WITH LEFT FOREARM 20 GAUGE PERIPHERAL IV PRESENT, PATENT AND INTACT ADMINISTERING TO PT. D5W WITH 20 MEQ KCL @ 150 ML/HR. PT. WITH BILATERAL SOFT WRIST RESTRAINTS PRESENT AND INTACT. CIRCULATIONS CHECKS PERFORMED. PT. WITH LEBLANC CATHETER PRESENT, PATENT AND INTACT DRAINING CLEAR YELLOW URINE. BED LOCKED AND IN LOWEST POSITION, SIDE RAILS UP X3, BED ALARM ON, CALL LIGHT WITHIN REACH, WILL CONTINUE TO MONITOR.
[2017-06-01] MEDS: CEFTRIAXONE 1 G in IV D5W 50 ML IV SCH (22:22)
[2017-06-01] MEDS: PANTOPRAZOLE 40 MG VIAL IV SCH (22:22)
[2017-06-02] MEDS: FIBERSOURCE HN 1,000 ML BOTTLE GT PRN (00:25)
[2017-06-02 04:00] VITALS: BP 155/73
[2017-06-02] MEDS: Potassium Chloride 20 MEQ in IV D5W 1,000 ML IV PRN ×2 (04:09→17:50)
--- NOTE | 2017-06-02 06:20 | NUR ---
MS/RN NOTES PT. IS LYING IN BED RESTING. BREATHING EVEN AND UNLABORED ON 2LPM O2 VIA NC. NO SOB, RESPIRATORY DISTRESS OR COMPLAINTS OF PAIN NOTED AT THIS TIME. PT. WITH NGT TO LEFT NOSTRIL PRESENT, PATENT AND INTACT ADMINISTERING TO PT. FIBERSOURCE @ 55ML/HR. PT. TOLERATING WELL. 10 ML RESIDUAL NOTED AT THIS TIME. PT. WITH LEFT FOREARM 20 GAUGE PERIPHERAL IV PRESENT, PATENT AND INTACT ADMINISTERING TO PT. D5W WITH 20 MEQ KCL @ 150 ML/HR. PT. WITH BILATERAL SOFT WRIST RESTRAINTS PRESENT AND INTACT. CIRCULATIONS CHECKS PERFORMED. PT. WITH LEBLANC CATHETER PRESENT, PATENT AND INTACT DRAINING CLEAR YELLOW URINE. ALL PT. NEEDS MET. PT. OFFLOADED. TURNED AND REPOSITIONED Q2H AND NEEDED. BED LOCKED AND IN LOWEST POSITION, SIDE RAILS UP X3, BED ALARM ON, CALL LIGHT WITHIN REACH, WILL ENDORSE TO DAYSHIFT NURSE FOR CONTINUITY OF CARE.
[2017-06-02 07:32] LABS: CALCIUM, SERUM 8.3 mg/dL (8.5-10.1); CARBON DIOXIDE 29 mmol/L (21-32); CHLORIDE 105 mmol/L (98-107); GLUCOSE 138 mg/dL (74-106); SODIUM SERUM 138 mmol/L (136-145); UREA NITROGEN, BLOOD 16 mg/dL (7-18)
[2017-06-02 07:46] LABS: BASOPHILS % (AUTO) 0.1 % (0.0-2.0); EOSINOPHILS # (AUTO) 0.2 /CMM (0.0-0.7); EOSINOPHILS % (AUTO) 2.6 % (0.0-6.0); HEMATOCRIT 34 % (39-51); HEMOGLOBIN 11.3 g/dL (13.5-17.5); LYMPHOCYTES # (AUTO) 0.7 /CMM (0.8-4.8); LYMPHOCYTES % (AUTO) 7.7 % (20.0-44.0); MEAN CORPUSCULAR HEMOGLOBIN 32 PG (26.0-33.0); MEAN CORPUSCULAR HGB CONC 33 g/dl (31.0-36.0); MEAN CORPUSCULAR VOLUME 95 fL (80-96); MONOCYTES # (AUTO) 0.9 /CMM (0.1-1.30); MONOCYTES % (AUTO) 9.2 % (2.0-12.0); NEUTROPHILS # (AUTO) 7.7 /CMM (1.8-8.9); NEUTROPHILS % (AUTO) 80.4 % (43.0-81.0); PLATELET COUNT (AUTO) 141 /CMM (150-450); RDW COEFFICIENT OF VARIATION 14.1 (11.5-15.0); RED BLOOD CELL COUNT(AUTO) 3.56 MIL/uL (4.5-6.0); WHITE BLOOD COUNT (AUTO) 9.6 K/uL (4.3-11.0)
[2017-06-02 08:00] VITALS: BP 133/68
--- NOTE | 2017-06-02 08:25 | NUR ---
MS/RN NOTES RECEIVED PT RESTING IN BED, IN NO APPARENT DISTRESS, BREATHING EVEN AND UNLABORED ON 2LPM O2 VIA NC. PATIENT DENIES PAIN OR DISCOMFORT AT THIS TIME. PATIENT WITH NGT TO LEFT NARE FEEDING FIBERSOURCE @ 55ML/HR. PT. TOLERATING WELL. 15 ML RESIDUAL NOTED AT THIS TIME. LEFT FOREARM 20 GAUGE IV PATENT AND INTACT INFUSING D5W WITH 20 MEQ KCL @ 150 ML/HR. BILATERAL SOFT WRIST RESTRAINTS FOR SAFETY, LEBLANC CATHETER DRAINING CLEAR YELLOW URINE. SAFETY MEASURES RENDERED, CALL LIGHT PLACED WITHIN REACH. WILL CONTINUE TO MONITOR
[2017-06-02] MEDS: CARBIDOPA/LEVODOPA 25/250 MG 1 UDTAB PO SCH ×2 (09:50→17:51)
[2017-06-02] MEDS: AMANTADINE HCL 100 MG CAPSULE PO SCH ×2 (09:50→17:51)
[2017-06-02] MEDS: MULTIVITAMINS,THERAGRAN 1 UDTAB TABLET NG SCH (09:50)
[2017-06-02] MEDS: DOCUSATE SODIUM LIQ 100 MG/10 ML UDC NG SCH (09:50)
[2017-06-02] MEDS: METOPROLOL TARTRATE 25 MG TABLET PO SCH (09:51)
[2017-06-02] MEDS: Z GUARD REMEDY 2 OZ OINT TP SCH (10:07)
[2017-06-02] MEDS: THIAMINE HCL 100 MG TABLET NG SCH (12:42)
[2017-06-02 16:00] VITALS: BP_SYST 112; BP_SYST 133; BP_DIAS 63; BP_DIAS 68
[2017-06-02] MEDS: RIVAROXABAN 10 MG TABLET PO SCH (16:55)
--- NOTE | 2017-06-02 18:20 | NUR ---
MS/RN NOTES ORDER FOR PEG PLACEMENT. CALLED THE SON GRISELDA TO OBTAIN CONSENTS HOWEVER WAS UNABLE TO REACH. LEFT A VOICEMAIL. CHARGE NURSE AWARE. WILL NOTIFY HOME HEALTH ATTENDANT NURSE TO ATTEMPT TO GET A HOLD OF SON.
--- NOTE | 2017-06-02 19:30 | NUR ---
RN INITIAL NOTES RECEIVED PATIENT IN BED, AWAKE, ALERT AND ORIENTED X1. BREATHING IS EVEN AND NONLABORED WHILE ON O2 VIA NC @ 2LPM, TOLERATING WELL, NO S/S OF RESPIRATORY DISTRESS. BILATERAL SOFT WRIST RESTRAINTS LOOSE, NOTED TO HAVE HANDS ON NGT. NGT @ 35CM. TUBE FEEDING IMMEDIATELY SHUT OFF. CHECKED FOR PLACEMENT BY FLUSHING TUBE WITH 30 CC OF AIR, UNABLE TO CONFIRM PLACEMENT. NGT REMOVED, REPLACED TO RIGHT NARE. PATIENT TOLERATED PROCEDURE WELL, STAT CXR ORDERED TO VERIFY PLACEMENT. WILL RESUME TUBE FEEDING WHEN PLACEMENT IS CONFIRMED, WILL BE NPO POST MN FOR POSS EGD WITH PEG PLACEMENT. LEFT FOREARM IV LEAKING, WILL REINSERT NEW IV. CALL LIGHT LEFT WITHIN EASY REACH, BED IN LOWEST AND LOCKED POSITION. WILL CONTINUE TO MONITOR
--- NOTE | 2017-06-02 19:33 | NUR ---
MS/RN NOTES PATIENT RESTING IN BED COMFORTABLY, ALL DUE MEDS GIVEN ALL NEEDS MET AND ATTENDED. NO SIGNIFICANT CHANGES IN CONDITION, POSSIBLE PEG PLACEMENT FOR AM, CONSENTS TO BE SIGNED ONCE ABLE TO REACH FAMILY. PATIENT KEPT CLEAN AND DRY, SKIN CARE IMPLEMENTATIONS PROVIDED. WILL ENDORSE CARE TO BENEFITS CONSULTANT FOR KRISTOFER
[2017-06-02 20:00] VITALS: BP 122/69
--- NOTE | 2017-06-02 20:40 | NUR ---
RN NOTES: CALLED DARRIN VILLALOBOS @ 8:38PM AT [phone] AND ANDRE CARDENAS @ [phone] @ 8:39 PM TO OBTAIN FOR EGD W/ PEG PLACEMENT CONSENT. LEFT VOICE MAIL MESSAGE TO CALL US BACK AT [phone].
--- NOTE | 2017-06-02 21:02 | NUR ---
RN NOTES RECEIVED CALL BACK FROM PATIENT'S SON GRISELDA. PER THE PATIENT'S SON, HE DOES NOT MAKE DECISIONS ON HIS FATHER'S BEHALF, AND DOES NOT GIVE CONSENT FOR EGD.
--- NOTE | 2017-06-02 21:45 | NUR ---
MS RN NOTES: PATIENT PULLED OUT HIS NGT. REINSERTED [place] NGT AND ORDERED CHEST XRAY FOR CONFIRMATION OF THE PLACEMENT. XRAY STATED " SIDE PORT AT THE GE JUNCTION, RECOMMEND FURTHER ADVANCEMENT." RECONFIRM PLACEMENT W/ WET AND DRY SUGAR BIN OPERATOR NURSE VIA AUSCULATION. PATIENT IS NPO FOR POSSIBLE EGD/PEG PLACEMENT. HOB ELEVATED. PROTONIX AND IV ATB GIVEN. WILL CONTINUE TO MONITOR.
[2017-06-02 22:00] VITALS: BP 124/72
--- NOTE | 2017-06-02 23:45 | NUR ---
MS RN NOTES: PATIENT IS RESTING COMFORTABLE W/NO S/S OF ANY RESPIRATORY DISTRESS NOTED. HAS BILATERAL SOFT WRIST RESTRAINTS ON. HL G # 22 ON RUE PATENT AND INTACT W/ NO S/S OF INFECTION /INFILTRATION NOTED AT THIS TIME. TURNED AND RESPOSITIONED. ALL NEEDS MEET. WILL CONTINUE TO MONITOR.
[2017-06-02] MEDS: CEFTRIAXONE 1 G in IV D5W 50 ML IV SCH (23:57)
[2017-06-02] MEDS: PANTOPRAZOLE 40 MG VIAL IV SCH (23:57)
[2017-06-03] VITALS: BP 124/72
--- NOTE | 2017-06-03 | NUR ---
RN NOTES PATIENT NPO/NGT CLAMPED, FOR POSSIBLE EGD WITH PEG PLACEMENT TODAY WITH DR ELY. WILL CONTINUE TO CLOSELY MONITOR
[2017-06-03 04:00] VITALS: BP 145/65
[2017-06-03 07:20] LABS: BASOPHILS % (AUTO) 0.3 % (0.0-2.0); EOSINOPHILS # (AUTO) 0.2 /CMM (0.0-0.7); EOSINOPHILS % (AUTO) 2.2 % (0.0-6.0); HEMATOCRIT 32 % (39-51); HEMOGLOBIN 10.9 g/dL (13.5-17.5); LYMPHOCYTES # (AUTO) 0.7 /CMM (0.8-4.8); LYMPHOCYTES % (AUTO) 8.8 % (20.0-44.0); MEAN CORPUSCULAR HEMOGLOBIN 32 PG (26.0-33.0); MEAN CORPUSCULAR HGB CONC 34 g/dl (31.0-36.0); MEAN CORPUSCULAR VOLUME 95 fL (80-96); MONOCYTES # (AUTO) 0.7 /CMM (0.1-1.30); MONOCYTES % (AUTO) 8.3 % (2.0-12.0); NEUTROPHILS # (AUTO) 6.8 /CMM (1.8-8.9); NEUTROPHILS % (AUTO) 80.4 % (43.0-81.0); PLATELET COUNT (AUTO) 156 /CMM (150-450); RDW COEFFICIENT OF VARIATION 14.2 (11.5-15.0); RED BLOOD CELL COUNT(AUTO) 3.42 MIL/uL (4.5-6.0); WHITE BLOOD COUNT (AUTO) 8.4 K/uL (4.3-11.0)
[2017-06-03 07:30] LABS: CALCIUM, SERUM 8.6 mg/dL (8.5-10.1); CARBON DIOXIDE 30 mmol/L (21-32); CHLORIDE 105 mmol/L (98-107); CREATININE 0.9 mg/dL (0.6-1.3); GLUCOSE 98 mg/dL (74-106); POTASSIUM 3.9 mmol/L (3.5-5.1); SODIUM SERUM 138 mmol/L (136-145); UREA NITROGEN, BLOOD 14 mg/dL (7-18)
--- NOTE | 2017-06-03 07:30 | NUR ---
MS RN NOTES: PATIENT SLEEPING W/ NO S/S OF ANY RESPIRATORY DISTRESS NOTED. BILATERAL SOFT WRIST RESTRAINT ON. NG IN PLACE. NPO FOR POSSIBLE EGD/PEG PLACEMENT. GAVE REPORT TO INCOMING SHIFT TO CONTINUE PLAN OF CARE. HAS IVF GOING W/ NO S/S OF INFECTION/INFILTRATION NOTED. [facility]
--- NOTE | 2017-06-03 07:30 | NUR ---
RN OPENING NOTES RECE'VD REPORT FROM NOC RN MABEL. PT CONFUSED. HOB ELEVATED. NGT CAPPED AND IN PLACE. NOC SHIFT UNABLE TO OBTAIN CONSENT SON UNWILLING. NOTIFIED DR. ELY WHO STATES HE WILL ATTEMPT TO FIND POA AND LIKELY HOLD OFF ON EGD PEG PLACEMENT TODAY. NOTIFIED FRANSICO ROBERSON. BED IN LOW LOCKED POSITION. NON LABORED RESP 2LNC 98%. NORMAL HR. RUE 22G D5W+20MEQKCL @150ML/ HR. WILL CONT TO MONITOR.
[2017-06-03] MEDS: Potassium Chloride 20 MEQ in IV D5W 1,000 ML IV PRN (07:32)
[2017-06-03 08:00] VITALS: BP 129/57
[2017-06-03] MEDS: MULTIVITAMINS,THERAGRAN 1 UDTAB TABLET NG SCH (09:00)
[2017-06-03] MEDS: AMANTADINE HCL 100 MG CAPSULE PO SCH ×2 (09:00→17:04)
[2017-06-03] MEDS: THIAMINE HCL 100 MG TABLET NG SCH (09:00)
[2017-06-03] MEDS: CARBIDOPA/LEVODOPA 25/250 MG 1 UDTAB PO SCH ×2 (09:00→17:04)
[2017-06-03] MEDS: METOPROLOL TARTRATE 25 MG TABLET PO SCH (09:00)
[2017-06-03] MEDS: DOCUSATE SODIUM LIQ 100 MG/10 ML UDC NG SCH (09:00)
[2017-06-03 10:00] VITALS: BP 129/57
[2017-06-03] MEDS: Z GUARD REMEDY 2 OZ OINT TP SCH (13:00)
[2017-06-03] MEDS: Potassium Chloride 20 MEQ in IV D5W 1,000 ML IV SCH (15:00)
[2017-06-03 16:00] VITALS: BP 157/92
[2017-06-03] MEDS: RIVAROXABAN 10 MG TABLET PO SCH (17:04)
--- NOTE | 2017-06-03 19:30 | NUR ---
MS/RN NOTES: RECEIVED PT. IN BED W/ HOB ELEVATED W/ NGT INPLACE PATENT AND INTACT. NGT INPLACE CONFIRMED VIA AUSCULTATION. W/ IVF TO LFA PATENT AND INTACT W/ NO S/S OF INFECTION OR INFILTRATION NOTED. F/C PATENT AND INTACT DRAINING CLEAR YELLOW URINE VIA GRAVITY. CALL LIGHT W/ REACH. SAFETY AND ASPIRATION PRECAUTION MAINTAINED. WILL CONTINUE TO MONITOR.
[2017-06-03 20:00] VITALS: BP 130/59
[2017-06-03] MEDS: PANTOPRAZOLE 40 MG VIAL IV SCH (21:48)
[2017-06-03] MEDS: CEFTRIAXONE 1 G in IV D5W 50 ML IV SCH (21:49)
[2017-06-04 04:00] VITALS: BP 115/76
[2017-06-04] MEDS: Potassium Chloride 20 MEQ in IV D5W 1,000 ML IV SCH ×2 (05:53→23:00)
--- NOTE | 2017-06-04 07:00 | NUR ---
MS/ TELE NOTES: PT. IN BED W/ HOB ELEVATED. NGF IN PLACE. IVF INPLACE W/ PATENT AND INTACT W/ NO S/S OF INFECTION OR INFILTRATION NOTED. W/ F/C DRAINING TO CLEAR YELLOW URINE VIA GRAVITY. ON BILATERAL SOFT WRIST RESTRAINTS. CALL LIGHT W/ REACH. WILL CONTINUE TO MONITOR.
[2017-06-04 07:05] LABS: BASOPHILS % (AUTO) 0.2 % (0.0-2.0); EOSINOPHILS # (AUTO) 0.2 /CMM (0.0-0.7); EOSINOPHILS % (AUTO) 2.1 % (0.0-6.0); HEMATOCRIT 31 % (39-51); HEMOGLOBIN 10.5 g/dL (13.5-17.5); LYMPHOCYTES # (AUTO) 0.8 /CMM (0.8-4.8); LYMPHOCYTES % (AUTO) 8.5 % (20.0-44.0); MEAN CORPUSCULAR HEMOGLOBIN 32 PG (26.0-33.0); MEAN CORPUSCULAR HGB CONC 34 g/dl (31.0-36.0); MEAN CORPUSCULAR VOLUME 95 fL (80-96); MONOCYTES # (AUTO) 0.4 /CMM (0.1-1.30); MONOCYTES % (AUTO) 4.4 % (2.0-12.0); NEUTROPHILS # (AUTO) 7.5 /CMM (1.8-8.9); NEUTROPHILS % (AUTO) 84.8 % (43.0-81.0); PLATELET COUNT (AUTO) 176 /CMM (150-450); RED BLOOD CELL COUNT(AUTO) 3.26 MIL/uL (4.5-6.0); WHITE BLOOD COUNT (AUTO) 8.8 K/uL (4.3-11.0)
--- NOTE | 2017-06-04 07:10 | NUR ---
RN INITIAL NOTE PATIENT RECEIVED IN BED, AWAKE, ALERT AND ORIENTED. ABLE TO MAKE NEEDS KNOWN. NO S/S OF PAIN OR DISCOMFORT. DENIES PAIN AT THIS TIME. RESPIRATIONS ARE EVEN AND UNLABORED. SATING WELL ON 2L NASAL CANULA. NO S/S OF RESPIRATORY DISTRESS OR SOB. IV SITE FLUSHED, PATENT. NGT FLUSHED, PATENT. PLACEMENT VERIFIED. SKIN IS WARM AND DRY TO TOUCH. SAFETY PRECAUTIONS IMPLEMENTED. BED IN LOCKED, LOW POSITION WITH TWO SIDE RAILS UP. CALL LIGHT AND BELONGINGS WITHIN EASY REACH. WILL CONTINUE TO MONITOR.
[2017-06-04 07:23] LABS: CALCIUM, SERUM 8.7 mg/dL (8.5-10.1); CARBON DIOXIDE 29 mmol/L (21-32); CHLORIDE 104 mmol/L (98-107); CREATININE 0.8 mg/dL (0.6-1.3); GLUCOSE 102 mg/dL (74-106); MAGNESIUM 2.1 mg/dL (1.8-2.4); POTASSIUM 3.8 mmol/L (3.5-5.1); SODIUM SERUM 138 mmol/L (136-145); UREA NITROGEN, BLOOD 11 mg/dL (7-18)
[2017-06-04 08:00] VITALS: BP 129/72
[2017-06-04] MEDS: CARBIDOPA/LEVODOPA 25/250 MG 1 UDTAB PO SCH ×2 (09:09→17:59)
[2017-06-04] MEDS: THIAMINE HCL 100 MG TABLET NG SCH (09:09)
[2017-06-04] MEDS: DOCUSATE SODIUM LIQ 100 MG/10 ML UDC NG SCH (09:09)
[2017-06-04] MEDS: MULTIVITAMINS,THERAGRAN 1 UDTAB TABLET NG SCH (09:09)
[2017-06-04] MEDS: AMANTADINE HCL 100 MG CAPSULE PO SCH ×2 (09:10→17:59)
[2017-06-04] MEDS: METOPROLOL TARTRATE 25 MG TABLET PO SCH (09:12)
[2017-06-04] MEDS: Z GUARD REMEDY 2 OZ OINT TP SCH (09:13)
[2017-06-04 10:00] VITALS: BP 129/72
[2017-06-04 16:00] VITALS: BP 155/71
[2017-06-04] MEDS: RIVAROXABAN 10 MG TABLET PO SCH (18:20)
[2017-06-04 20:00] VITALS: BP 114/62
[2017-06-04] MEDS: CEFTRIAXONE 1 G in IV D5W 50 ML IV SCH (22:02)
[2017-06-04] MEDS: PANTOPRAZOLE 40 MG VIAL IV SCH (22:02)
[2017-06-05 04:00] VITALS: BP 114/61
--- NOTE | 2017-06-05 07:50 | NUR ---
AM RN NOTES PT RECEIVED SLEEPING IN BED COMFORTABLY, EASY TO AROUSE, NO SOB OR DISTRESS NOTED, NOT ABLE TO SWALLOW HIS BREAKFAST, TRAY HELD FOR SAFETY, WILL INFORM MD
[2017-06-05 08:00] VITALS: BP 130/76
[2017-06-05] MEDS: DOCUSATE SODIUM LIQ 100 MG/10 ML UDC NG SCH (08:15)
[2017-06-05] MEDS: MULTIVITAMINS,THERAGRAN 1 UDTAB TABLET NG SCH (08:16)
[2017-06-05] MEDS: THIAMINE HCL 100 MG TABLET NG SCH (08:16)
[2017-06-05] MEDS: METOPROLOL TARTRATE 25 MG TABLET PO SCH (08:17)
[2017-06-05] MEDS: CARBIDOPA/LEVODOPA 25/250 MG 1 UDTAB PO SCH ×2 (08:17→17:07)
[2017-06-05] MEDS: AMANTADINE HCL 100 MG CAPSULE PO SCH ×2 (08:17→17:07)
[2017-06-05] MEDS: Z GUARD REMEDY 2 OZ OINT TP SCH (09:00)
--- NOTE | 2017-06-05 12:45 | NUR ---
PT VISITED BY DR. CAM, PER PT WILL NEED GT AND HE WILL ASK FOR BIOETHIC COMMITTEE.
[2017-06-05] MEDS: Potassium Chloride 20 MEQ in IV D5W 1,000 ML IV SCH (13:34)
[2017-06-05 16:00] VITALS: BP_SYST 129; BP_SYST 130; BP_DIAS 76; BP_DIAS 81
[2017-06-05] MEDS: RIVAROXABAN 10 MG TABLET PO SCH (17:07)
--- NOTE | 2017-06-05 18:24 | NUR ---
PT IN STABLE CONDITION, NO SOB OR DISTRESS NOTED, NO PAIN NOTED, PT WAS ABLE TO TAKE HIS MEDS WITH SMALL AMOUNT OF APPLE SOUSE, NO COUGH NOTED, WILL INDORSE TO NEXT SHIFT FOR KRISTOFER.
[2017-06-05 20:00] VITALS: BP 123/73
[2017-06-05] MEDS: PANTOPRAZOLE 40 MG VIAL IV SCH (22:13)
[2017-06-05] MEDS: CEFTRIAXONE 1 G in IV D5W 50 ML IV SCH (22:13)
--- NOTE | 2017-06-06 07:15 | NUR ---
RN INITIAL NOTES: REC'D PT AWAKE ON BED, A/O X1, NOT IN ANY DISTRESS. ON O2 AT 2LPM/NC, NO SOB. HAS DARRIN G22 PL, PATENT & INTACT W/ NO S/SX OF INFECTION/ INFILTRATION NOTED, D5 1/2 NS + 20 MEQS KCL X 60/HR INFUSING WELL. PT KEPT ON NPO AT THIS TIME DUE TO POSSIBLE EGD AND PEG PLACEMENT TODAY ONCE CONSENT IN, AWAITING FOR BIOETHICS COMMITTEE. PROVIDED COMFORT & SAFETY MEASURES. CALL LIGHT PLACED W/IN REACH. BED KEPT LOW & IN LOCKED POS. WILL CONTINUE TO MONITOR AND ATTEND PT NEEDS.
[2017-06-06] MEDS: Potassium Chloride 20 MEQ in IV D5W 1,000 ML IV SCH (07:20)
[2017-06-06 08:00] VITALS: BP 128/70
[2017-06-06 08:42] VITALS: BP 128/70
[2017-06-06 08:44] VITALS: BP 128/70
[2017-06-06] MEDS: AMANTADINE HCL 100 MG CAPSULE PO SCH ×2 (09:00→16:54)
[2017-06-06] MEDS: DOCUSATE SODIUM LIQ 100 MG/10 ML UDC NG SCH (09:00)
[2017-06-06] MEDS: CARBIDOPA/LEVODOPA 25/250 MG 1 UDTAB PO SCH ×2 (09:00→16:54)
[2017-06-06] MEDS: THIAMINE HCL 100 MG TABLET NG SCH (09:00)
[2017-06-06] MEDS: METOPROLOL TARTRATE 25 MG TABLET PO SCH (09:00)
[2017-06-06] MEDS: MULTIVITAMINS,THERAGRAN 1 UDTAB TABLET NG SCH (09:00)
[2017-06-06] MEDS: Z GUARD REMEDY 2 OZ OINT TP SCH (09:44)
[2017-06-06 11:07] LABS: HEMATOCRIT 34 % (39-51); HEMOGLOBIN 11.4 g/dL (13.5-17.5); MEAN CORPUSCULAR HEMOGLOBIN 32 PG (26.0-33.0); MEAN CORPUSCULAR HGB CONC 34 g/dl (31.0-36.0); MEAN CORPUSCULAR VOLUME 95 fL (80-96); RED BLOOD CELL COUNT(AUTO) 3.59 MIL/uL (4.5-6.0)
[2017-06-06 11:08] LABS: BASOPHILS % (AUTO) 0.3 % (0.0-2.0); EOSINOPHILS % (AUTO) 1.6 % (0.0-6.0); LYMPHOCYTES % (AUTO) 10.6 % (20.0-44.0); NEUTROPHILS % (AUTO) 83.5 % (43.0-81.0); PLATELET COUNT (AUTO) 266 /CMM (150-450); RDW COEFFICIENT OF VARIATION 13.6 (11.5-15.0)
[2017-06-06 11:14] LABS: CALCIUM, SERUM 9.1 mg/dL (8.5-10.1); CARBON DIOXIDE 29 mmol/L (21-32); CHLORIDE 101 mmol/L (98-107); GLUCOSE 111 mg/dL (74-106); MAGNESIUM 2.2 mg/dL (1.8-2.4); POTASSIUM 4.1 mmol/L (3.5-5.1); SODIUM SERUM 136 mmol/L (136-145); UREA NITROGEN, BLOOD 9 mg/dL (7-18)
--- NOTE | 2017-06-06 11:30 | NUR ---
RN NOTES: REC'D CALL BACK FROM GRISELDA (PT'S SON), STATED THAT HE HASN'T SEEN HIS FATHER FOR MORE THAN A YEAR. IN TERMS OF GIVING CONSENT IT WILL BE PT'S POA AND NOT HIM. HE VERBALIZED TO STOP CALLING HIM OR PT'S GRAND DAUGHTER. Addendum: 06/06/17 at 1311 by KATHERIN MATTHEWS RN DR. CAM MADE AWARE REGARDING THE CONCERN COMING FROM PT'S SON. SAID THAT W/ REGARDS TO CONSENT HE ALREADY GOT CONSENT FROM 2 DOCTORS - HIMSELF AND WITH DR. SANZ. PER DR. CAM, HE WILL SIGN THE INFORMED CONSENT WHEN HE DO HIS ROUNDS. OPERATING ROOM NOTIFIED, SPOKE W/ CARLEY, SAID THAT SHE WILL NOTIFY DR. ELY ABOUT THIS.
--- NOTE | 2017-06-06 14:00 | NUR ---
RN NOTES: BIOETHICS NOTES ALREADY PLACED IN PT'S CHART FOR PT'S EGD W/ PEG PLACEMENT PROCEDURE.
[2017-06-06 16:00] VITALS: BP_SYST 128; BP_SYST 129; BP_DIAS 70; BP_DIAS 79
[2017-06-06] MEDS: RIVAROXABAN 10 MG TABLET PO SCH (16:54)
--- NOTE | 2017-06-06 17:20 | NUR ---
RN NOTES: PT'S PICKED UP BY OR NURSES FOR EGD W/ PEG PLACEMENT.
--- NOTE | 2017-06-06 18:25 | NUR ---
RN NOTES: PT CAME BACK FROM OR S/P EGD W/ PEG PLACEMENT. SURGICAL SITE CLEAN, DRY AND W/ PEG IN PLACE/INTACT. NOTED AND CARRIED OUT DR. ELY'S ORDERS. - GTUBE MAY BE USED FOR MEDS NOW. - GTUBE FOR FEEDING IN AM PER NUTRITION RECOMMENDATIONS. - ASPIRATION PRECAUTIONS. - ABDOMINAL BINDER. - LOCAL WOUND CARE EVERY SHIFT. - RESUME ALL MEDS.
--- NOTE | 2017-06-06 19:00 | NUR ---
RN CLOSING NOTES: NO ACUTE CHANGES NOTED W/IN SHIFT. PT TOLERATED O2 AT 2LPM/NC, NO SOB. DARRIN G22 PL, KEPT PATENT & INTACT W/ NO S/SX OF INFECTION/ INFILTRATION NOTED, D5 1/2 NS + 20 MEQS KCL X 60/HR INFUSING WELL. PT S/P EGD W/ PEG PLACEMENT. ABDOMINAL BINDER PLACED. PT KEPT WELL RESTED. NEEDS ATTENDED. CALL LIGHT PLACED W/IN REACH. BED KEPT LOW & IN LOCKED POS. WILL ENDORSE TO PM RN FOR KRISTOFER.
--- NOTE | 2017-06-06 19:35 | NUR ---
MS RN INITIAL NOTE RECEIVED PT IN BED RESTING. A/O X1-2 WITH NOTED CONFUSION BUT ABLE TO ANSWER SOME QUESTIONS. ON 2L OF O2 AND SATURATING 97%. BREATHING EVEN AND UNLABORED. NPO EXCEPT MEDS. GTUBE IN PLACE, CLEAN AND FLUSHING WELL. IV DARRIN MIDLINE PATENT, CLEAN AND FLUSHING WELL WITH FLUIDS RUNNING. HOB ELEVATED AND ON ASPIRATION PRECAUTIONS. CALL LIGHT WITHIN REACH. WILL CONTINUE TO MONITOR.
[2017-06-06 20:00] VITALS: BP 135/85
[2017-06-06] MEDS: CEFTRIAXONE 1 G in IV D5W 50 ML IV SCH (21:39)
[2017-06-06] MEDS: PANTOPRAZOLE 40 MG VIAL IV SCH (21:40)
[2017-06-07] MEDS: Potassium Chloride 20 MEQ in IV D5W 1,000 ML IV SCH (00:59)
[2017-06-07 04:00] VITALS: BP 151/79
--- NOTE | 2017-06-07 07:00 | NUR ---
MS RN CLOSING NOTE NO ACUTE DISTRESS NOTED. NOTED TO BE LETHARGIC AND WITH EPISODES OF CONFUSION. HOB ELEVATED AT ALL TIMES. KEPT CLEAN AND DRY. ALL NEEDS ATTENDED TO PROMPTLY. GTUBE KEPT CLEAN AND FLUSHED. NPO STATUS MAINTAINED. ABDOMINAL BINDER IN PLACE FOR SAFETY. BED REMAINED LOW, ALARM ON AND IN LOCKED POSITION. REPOSITIONED Q2H. WILL ENDORSE TO NEXT SHIFT FOR CONTINUITY OF CARE.
--- NOTE | 2017-06-07 07:15 | NUR ---
RN INITIAL NOTES: REC'D PT AWAKE ON BED, A/O X1, NOT IN ANY DISTRESS. ON O2 AT 2LPM/NC, NO SOB. HAS DARRIN G22 PL, PATENT & INTACT W/ NO S/SX OF INFECTION/ INFILTRATION NOTED, D5 1/2 NS + 20 MEQS KCL X 60/HR INFUSING WELL. HAS PEG PATENT & INTACT W/ ABDOMINAL BINDER ON. WILL START TUBE FEEDING THIS AM ORDERED. PROVIDED COMFORT & SAFETY MEASURES. CALL LIGHT PLACED W/IN REACH. BED KEPT LOW & IN LOCKED POS. WILL CONTINUE TO MONITOR AND ATTEND PT NEEDS.
[2017-06-07 08:00] VITALS: BP 131/78
[2017-06-07] MEDS: AMANTADINE HCL 100 MG CAPSULE PO SCH ×2 (08:40→17:16)
[2017-06-07] MEDS: MULTIVITAMINS,THERAGRAN 1 UDTAB TABLET NG SCH (08:40)
[2017-06-07] MEDS: CARBIDOPA/LEVODOPA 25/250 MG 1 UDTAB PO SCH ×2 (08:40→17:16)
[2017-06-07] MEDS: THIAMINE HCL 100 MG TABLET NG SCH (08:40)
[2017-06-07] MEDS: DOCUSATE SODIUM LIQ 100 MG/10 ML UDC NG SCH (08:40)
[2017-06-07] MEDS: METOPROLOL TARTRATE 25 MG TABLET PO SCH (08:41)
[2017-06-07] MEDS: Z GUARD REMEDY 2 OZ OINT TP SCH (08:41)
[2017-06-07] MEDS: FIBERSOURCE HN 1,000 ML BOTTLE GT PRN (09:07)
--- NOTE | 2017-06-07 10:33 | NUR ---
RN NOTES: PT SEEN & EXAMINED BY DR. CAM W/ ORDERS MADE & CARRIED OUT.
[2017-06-07 16:00] VITALS: BP 130/64
[2017-06-07] MEDS: RIVAROXABAN 10 MG TABLET PO SCH (17:17)
--- NOTE | 2017-06-07 18:47 | NUR ---
RN CLOSING NOTES: NO ACUTE CHANGES NOTED W/IN SHIFT. PT TOLERATED O2 AT 2LPM/NC, NO SOB. DARRIN G22 PL, KEPT PATENT & INTACT W/ NO S/SX OF INFECTION/ INFILTRATION NOTED. PEG KEPT PATENT & INTACT W/ ABDOMINAL BINDER PLACED, TOLERATED WELL FIBERSOURCE AT 55 CC/HR, NO RESIDUAL W/IN SHIFT. PT KEPT WELL RESTED. NEEDS ATTENDED. CALL LIGHT PLACED W/IN REACH. BED KEPT LOW & IN LOCKED POS. WILL ENDORSE TO PM RN FOR KRISTOFER.
--- NOTE | 2017-06-07 19:30 | NUR ---
MS RN INITIAL NOTE RECEIVED PT IN BED RESTING. A/O X1-2 WITH NOTED LETHARGY BUT ABLE TO ANSWER SOME QUESTIONS. ON 2L OF O2 AND SATURATING 96%. BREATHING EVEN AND UNLABORED. GTUBE IN PLACE, CLEAN AND FLUSHING WELL WITHOUT RESIDUALS NOTED AT THIS TIME. IV DARRIN MIDLINE PATENT, CLEAN AND FLUSHING WELL. HOB ELEVATED AND ON ASPIRATION PRECAUTIONS. BED IN LOWEST POSITION AND LOCKED IN PLACE WITH BED ALARM ON. CALL LIGHT WITHIN REACH. WILL CONTINUE TO MONITOR.
[2017-06-07 20:00] VITALS: BP 120/69
[2017-06-07] MEDS: PANTOPRAZOLE 40 MG VIAL IV SCH (21:35)
[2017-06-08 04:00] VITALS: BP 123/74
[2017-06-08] MEDS: FIBERSOURCE HN 1,000 ML BOTTLE GT PRN (05:04)
--- NOTE | 2017-06-08 06:46 | NUR ---
MS RN CLOSING NOTE NO ACUTE DISTRESS NOTED. NOTED TO BE LETHARGIC AND WITH EPISODES OF CONFUSION. HOB ELEVATED AT ALL TIMES. KEPT CLEAN AND DRY. ALL NEEDS ATTENDED TO PROMPTLY. GTUBE KEPT CLEAN, NO RESIDUALS NOTED AND FLUSHED WELL. ON ASPIRATION PRECAUTIONS. ABDOMINAL BINDER IN PLACE FOR SAFETY. BED REMAINED LOW, ALARM ON AND IN LOCKED POSITION. REPOSITIONED Q2H. CALL LIGHT WITHIN REACH. WILL ENDORSE TO NEXT SHIFT FOR CONTINUITY OF CARE.
--- NOTE | 2017-06-08 07:25 | NUR ---
RN OPEN NOTES RECEIVED REPORT FROM SHAFTING CLEANER NURSE. WILL CONTINUE TO MONITOR AND ASSESS PATIENT THROUGH OUT MY SHIFT
[2017-06-08 08:00] VITALS: BP 106/68
[2017-06-08] MEDS: Z GUARD REMEDY 2 OZ OINT TP SCH (08:28)
[2017-06-08] MEDS: MULTIVITAMINS,THERAGRAN 1 UDTAB TABLET NG SCH (08:28)
[2017-06-08] MEDS: DOCUSATE SODIUM LIQ 100 MG/10 ML UDC NG SCH (08:28)
[2017-06-08 08:29] VITALS: BP 106/68
[2017-06-08] MEDS: CARBIDOPA/LEVODOPA 25/250 MG 1 UDTAB PO SCH (08:29)
[2017-06-08] MEDS: AMANTADINE HCL 100 MG CAPSULE PO SCH (08:29)
[2017-06-08] MEDS: METOPROLOL TARTRATE 25 MG TABLET PO SCH (08:29)
[2017-06-08] MEDS: THIAMINE HCL 100 MG TABLET NG SCH (08:29)
--- NOTE | 2017-06-08 12:05 | NUR ---
[facility] NURSE CALLED IN TO DECLINE PATIENT. UTILIZATION REVIEW NURSE MADE AWARE AND WORKING ON HIS CASE
--- NOTE | 2017-06-08 13:30 | NUR ---
ATUL, BUSINESS LAW PROFESSOR CALLED. [facility] ACCEPT THE PATIENT.
--- NOTE | 2017-06-08 13:45 | NUR ---
KAROL, CHARGE NURSE, GAVE REPORT TO [place] AT [facility]
--- NOTE | 2017-06-08 14:10 | NUR ---
EAR FLAP BINDER NOTES PATIENT DISCHARGE ORDER RECEIVED AND CARRIED OUT. NO SIGNS AND SYMPTOMS OF DISTRESS OR PAIN. PATIENT IS BEING DISCHARGE IN A STABLE CONDITION. REPORT GAVE TO AR MCPHERSON AT [facility] BY [facility] CHARGE NURSE, KAROL. NO PERSONAL BELONGING. ALL DISCHARGE INSTRUCTIONS AND BELONGING FORMS SIGNED BY TWO RNs DUE TO PATIENT UNABLE TO SIGN. FORMS PLACED IN THE CHART. PICTURES WERE TAKEN AND PLACED IN THE CHART. IV SITE REMOVED. ID BAND REMOVED. PATIENT WAS TRANSFERRED TO [facility] BY AMBULANCE AND 2 plane captain.
== END 2017-06-08 14:17 | DRG 871 ==
LOC: ER 17:46 → TELE-TD 20:48 → MEDSG1 06-01 10:25
PROVIDERS: ADMIT Legal Medicine; ATTEND Legal Medicine
PROC: 0DB98ZX Excision of Duodenum, Via Natural or Artificial Opening Endoscopic, Diagnostic (ICD-10-PCS; 2017-06-06)
PROC: 0DB58ZX Excision of Esophagus, Via Natural or Artificial Opening Endoscopic, Diagnostic (ICD-10-PCS; 2017-06-06)
PROC: 0DH63UZ Insertion of Feeding Device into Stomach, Percutaneous Approach (ICD-10-PCS; principal; 2017-06-06 17:38)
DX: A41.9 Sepsis, unspecified organism (principal); G93.40 Encephalopathy, unspecified; E43 Unspecified severe protein-calorie malnutrition; N17.9 Acute kidney failure, unspecified; L89.101 Pressure ulcer of unspecified part of back, stage 1; R13.10 Dysphagia, unspecified; D69.2 Other nonthrombocytopenic purpura; D69.6 Thrombocytopenia, unspecified; E87.0 Hyperosmolality and hypernatremia; N39.0 Urinary tract infection, site not specified; L97.829 Non-pressure chronic ulcer of other part of left lower leg with unspecified severity; Z68.1 Body mass index [BMI] 19.9 or less, adult; D64.9 Anemia, unspecified; K22.70 Barrett's esophagus without dysplasia; N18.9 Chronic kidney disease, unspecified; G20 Parkinson's disease; Z86.718 Personal history of other venous thrombosis and embolism; S80.212A Abrasion, left knee, initial encounter; S80.211A Abrasion, right knee, initial encounter; X58.XXXA Exposure to other specified factors, initial encounter; Y93.9 Activity, unspecified; Y92.129 Unspecified place in nursing home as the place of occurrence of the external cause; I83.028 Varicose veins of left lower extremity with ulcer other part of lower leg; E88.09 Other disorders of plasma-protein metabolism, not elsewhere classified; F02.80 Dementia in other diseases classified elsewhere, unspecified severity, without behavioral disturbance, psychotic disturbance, mood disturbance, and anxiety; K44.9 Diaphragmatic hernia without obstruction or gangrene; I12.9 Hypertensive chronic kidney disease with stage 1 through stage 4 chronic kidney disease, or unspecified chronic kidney disease; K26.9 Duodenal ulcer, unspecified as acute or chronic, without hemorrhage or perforation; R65.20 Severe sepsis without septic shock; B96.4 Proteus (mirabilis) (morganii) as the cause of diseases classified elsewhere
CPT/HCPCS: 36415; 43246; 71010-TC; 80048-TC; 80053-TC; 80076-TC; 81000-TC; 83605-TC; 83735-TC; 84100-TC; 84484-TC; 85025-TC; 85730-TC; 87040-TC; 87081-TC; 87086-TC; 87186-TC; 88305-TC; 88313-TC; 92521; 92526; A4606; C9113; J0690; J0696; J1650; J1956; J2543; J2704; J3480; J3490; J7040; J7050; J7060; J7070; Z7610

== ENCOUNTER 2017-08-11 08:32 | Inpatient (IN) | payer MEDICARE, MEDICAID ==
[2017-08-11] VITALS (22 sets, daily range): BP systolic 82–130; BP diastolic 37–75
[~2017-08-11] VITALS: Ht 177.8 cm; Wt 69.9 kg
[~2017-08-11 08:32] MED LIST: BISA10SU8 RC; NA P133E RC
--- NOTE | 2017-08-11 08:42 | NUR ---
PT BB PRIVATE EMS FROM [facility] FOR SOB. TACHYPNIC. ON MASK AT 5LPM. AFEBRILE. PLACED ON CONT CARDIAC AND POX MONITORING. PT IS UNABLE TO PROVIDE HISTORY. ALL NEEDS ARE ATTENDED, KEPT WARM AND COMFORTABLE. SEEN AND EVALUATED BY DR DAMON
[2017-08-11 08:59] LABS: BASOPHILS % (AUTO) 0.1 % (0.0-2.0); EOSINOPHILS # (AUTO) 0.2 /CMM (0.0-0.7); EOSINOPHILS % (AUTO) 1.3 % (0.0-6.0); HEMATOCRIT 28 % (39-51); LYMPHOCYTES # (AUTO) 0.6 /CMM (0.8-4.8); LYMPHOCYTES % (AUTO) 3.8 % (20.0-44.0); MEAN CORPUSCULAR HEMOGLOBIN 29 PG (26.0-33.0); MEAN CORPUSCULAR HGB CONC 32 g/dl (31.0-36.0); MEAN CORPUSCULAR VOLUME 90 fL (80-96); MONOCYTES # (AUTO) 0.7 /CMM (0.1-1.30); NEUTROPHILS # (AUTO) 15.3 /CMM (1.8-8.9); NEUTROPHILS % (AUTO) 90.8 % (43.0-81.0); PLATELET COUNT (AUTO) 152 /CMM (150-450); RDW COEFFICIENT OF VARIATION 16.8 (11.5-15.0); RED BLOOD CELL COUNT(AUTO) 3.11 MIL/uL (4.5-6.0); WHITE BLOOD COUNT (AUTO) 16.8 K/uL (4.3-11.0)
[2017-08-11 09:09] LABS: APPEARANCE,URINE SL CLOUDY (CLEAR); BILIRUBIN,URINE NEGATIVE (NEGATIVE); BLOOD, URINE NEGATIVE Ery/uL (NEGATIVE); COLOR,URINE YELLOW (YELLOW); KETONES,URINE NEGATIVE (NEGATIVE); LEUKOCYTE ESTERASE ,URINE NEGATIVE (NEGATIVE); NITRITE, URINE NEGATIVE (NEGATIVE); PH,URINE 5.5 (5.0-8.0); PROTEIN,URINE NEGATIVE (NEGATIVE); UGLUCOSE NEGATIVE (NEGATIVE); UROBILINOGEN,URINE 0.2 EU/dL (0.2)
[2017-08-11 09:09] LABS: CALCIUM, SERUM 9.3 mg/dL (8.5-10.1); CARBON DIOXIDE 37 mmol/L (21-32); CHLORIDE 102 mmol/L (98-107); CREATININE 1.2 mg/dL (0.6-1.3); GLUCOSE 141 mg/dL (74-106); POTASSIUM 3.8 mmol/L (3.5-5.1); SODIUM SERUM 143 mmol/L (136-145); UREA NITROGEN, BLOOD 36 mg/dL (7-18)
[2017-08-11 09:15] LABS: ALANINE AMINOTRANSFERASE 14 U/L (12-78); ALBUMIN 2.1 g/dL (3.4-5.0); ALKALINE PHOSPHATASE 89 U/L (46-116); ASPARTATE AMINOTRANSFERASE 28 U/L (15-37); BILIRUBIN,DIRECT 0.1 mg/dL (0.0-0.2); BILIRUBIN,TOTAL 0.3 mg/dL (0.2-1.0); TOTAL PROTEIN, SERUM 6.6 g/dL (6.4-8.2)
[2017-08-11 09:17] LABS: TROPONIN I 0.101 ng/mL (0.00-0.056)
[2017-08-11 09:22] LABS: INR 1.1 (0.87-1.13)
[2017-08-11] MEDS ORDERED: PIPERACILLIN /TAZOBACTAM 3.375 G in IV D5W 50 ML IV ONE (09:30)
[2017-08-11] MEDS ORDERED: VANCOMYCIN 1 GM in IV D5W 250 ML IV ONE (09:30)
[2017-08-11] MEDS ORDERED: LEVOFLOXACIN 750 MG /D5W 150ML 150 ML IV ONE ×2 (09:30→09:41)
[2017-08-11] MEDS ORDERED: ACET-868 GT (09:31)
[2017-08-11] MEDS ORDERED: ATEN25TA GT (09:31)
[2017-08-11] MEDS ORDERED: AMAN100T GT (09:31)
[2017-08-11] MEDS ORDERED: AMLO5TAB2 GT (09:31)
[2017-08-11] MEDS ORDERED: RIVA10TA PO (09:31)
[2017-08-11] MEDS ORDERED: CARB-96 GT (09:31)
[2017-08-11] MEDS ORDERED: CHOL500052 GT (09:31)
[2017-08-11] MEDS ORDERED: PIPE3.377 IV (09:31)
--- NOTE | 2017-08-11 10:05 | NUR ---
REPORT GIVEN TO SEJAL JOYNER FOR CONT OF CARE
--- NOTE | 2017-08-11 11:30 | NUR ---
PT BROUGHT TO [facility] AND THEN TRANSFERRED TO ICU AFTER SEEN BY DR. POWELL. ADMITED FROM [facility] FOR LOW O2. R/O PNEUMONIA. ON TRANSFER TO ICU PT ON NON REBREATHER AND TACHYPNEIC IN THE 30'S. DR. GONZALEZ ON THE UNIT ORDER FOR STAT ABG.
[2017-08-11 11:57] LABS: ABG BASE EXCESS 8.9 mmol/L; ABG OXYGEN SATURATION 98.5 % (92.0-98.5); ABG PCO2 37.6 mmHg (35.0-45.0); ABG PH 7.547 (7.350-7.450); ABG PO2 148.9 mmHg (75.0-100.0); COHb 0.2 % (0.5-1.5); MetHb 0.5 % (0.0-1.5); O2Hb 97.8 % (94.0-97.0); SITE, ABG Right Radial; VENT MODE, BG NON-REBREATHER
--- NOTE | 2017-08-11 12:10 | NUR ---
ABG TAKEN AND RESULTS REVIEWED BY DR. GONZALEZ WHO ORDERS TO TITRATE OXYGEN DOWN AND DEEP SUCTIONING. PT PLACED ON NC AT 6 LITER HOWEVER HE DESATURATES TO 80-85%. SIMPLE MASK AT 10L PLACED, PT AVERAGE SAT AT 95%. DEEP SUCTIONING RENDERED WITH MINIMAL SECRETIONS SUCTIONED.
--- NOTE | 2017-08-11 12:15 | NUR ---
DR. GONZALEZ ORDERS LASIX AND OK TO INSERT LEBLANC FOR STRICT INTAKE/OUTPUT.
[2017-08-11] MEDS: IPRATROPIUM NEB FS 0.5 MG/2.5 ML AMPUL.NEB NEB SCH ×4 (12:30→23:30)
[2017-08-11] MEDS ORDERED: PIPERACILLIN /TAZOBACTAM 3.375 G in IV D5W 50 ML IV SCH (13:00)
[2017-08-11] MEDS: ALBUTEROL HALF STRENGTH 1.25 MG/3 ML VIAL.NEB NEB SCH ×4 (13:00→23:30)
[2017-08-11] MEDS: FUROSEMIDE 40 MG/4 ML VIAL IV SCH ×2 (13:13→17:31)
[2017-08-11] MEDS: AMANTADINE HCL 100 MG CAPSULE GT SCH ×2 (13:13→16:29)
[2017-08-11] MEDS: AMLODIPINE BESYLATE 5 MG TABLET GT SCH (16:18)
[2017-08-11 16:19] LABS: TROPONIN I 0.095 ng/mL (0.00-0.056)
--- NOTE | 2017-08-11 17:14 | NUR ---
RT VANUSH IN FOR DEEP SUCTIONING TX. SMALL AMOUNT OF THICK DRY SECRETIONS SUCTIONED.
[2017-08-11] MEDS: RIVAROXABAN 15 MG TABLET PO SCH (17:25)
--- NOTE | 2017-08-11 18:17 | NUR ---
HHN DEFERRED RT BUSY IN ER
--- NOTE | 2017-08-11 18:19 | NUR ---
CALLED PHARMACY FOR 1800 ZOSYN DOSE, THEY STATE THEY WILL CHECK 309 (PT WAS ADMITTED TO [facility] BUT TRANSFERRED QUICKLY TO ICU).
[2017-08-11] MEDS: PIPERACILLIN /TAZOBACTAM 3.375 G in IV D5W 50 ML IV SCH (18:59)
--- NOTE | 2017-08-11 19:35 | NUR ---
RN NOTES PT RESTED ON BED AOX1-2 ABLE TO FOLLOW COMMAND BREATH FAST AROUND 30'S SATURATION 95% ON O2 10LPM VIA MASK. TELE MONITOR REVEALS SR 70. IV SITE ON RAC G 18 LEAKING AND RIGHT HAND G 20 INTACT AND PATENT. PT IS AFEBRILE. NOTED VS DROPS TO 65/22 REPEAT FOR 3 X LAST VITALS WAS 99'[address] HECTOR CABRERA PER MD TO KEEP MONITOR THE PATIENT. KEPT PT CLEAN AND DRY. ALL DUE MEDICINE TOLERATED WELL. TURNED AND REPOSITIONED PT COMFORTABLE. KEPT PT CLEAN AND DRY. WILL CONTINUE TO MONITOR.
[2017-08-11] MEDS: CARBIDOPA/LEV CR 50/200 MG 1 UDTAB.SA GT SCH (21:27)
--- NOTE | 2017-08-11 23:10 | NUR ---
RN NOTES PT SATURATION DROP DOWN TO 67% PLACED NON REBREATHER MASK @ 12LPM THEN STARTED TO INCREASED TILL 95%.
[2017-08-12] VITALS (26 sets, daily range): BP systolic 90–155; BP diastolic 23–84
[2017-08-12] MEDS: PIPERACILLIN /TAZOBACTAM 3.375 G in IV D5W 50 ML IV SCH ×3 (00:22→11:22)
[2017-08-12] MEDS: FUROSEMIDE 40 MG/4 ML VIAL IV SCH (00:22)
--- NOTE | 2017-08-12 00:45 | NUR ---
RN NOTES PT SATURATION MAINTAINED AT 99-100% PLACED BACK TO 02 10LPM VIA MASK WILL CONTINUE TO MONITOR.
[2017-08-12] MEDS: ALBUTEROL HALF STRENGTH 1.25 MG/3 ML VIAL.NEB NEB SCH ×7 (01:00→23:30)
[2017-08-12] MEDS ORDERED: ALBUTEROL HALF STRENGTH 1.25 MG/3 ML VIAL.NEB NEB SCH (01:00)
[2017-08-12] MEDS: IPRATROPIUM NEB FS 0.5 MG/2.5 ML AMPUL.NEB NEB SCH ×6 (03:30→23:30)
--- NOTE | 2017-08-12 06:42 | NUR ---
RN NOTES PT ASLEEP AT THIS TIME. AIRWAY PATENT. PLACED TO NON REBREATHER MASK @ 12LPM DUE TO EPISODE OF DESATURATION ON 10LPM VIA MASK. IV ATB CONTINUE.IV SITE INTACT AND PATENT. LEBLANC CATH DRAINED WITH CLEAR MEME COLOR URINE. VS WNL. KEPT PT CLEAN AND DRY. REPOSITIONED MORE FREQUENTLY. WILL ENDORSED CONTINUITY OF CARE TO AM NURSE.
[2017-08-12 08:07] LABS: CARBON DIOXIDE 36 mmol/L (21-32); CHLORIDE 101 mmol/L (98-107); CREATININE 1.3 mg/dL (0.6-1.3); GLUCOSE 89 mg/dL (74-106); POTASSIUM 3.1 mmol/L (3.5-5.1); SODIUM SERUM 147 mmol/L (136-145); UREA NITROGEN, BLOOD 36 mg/dL (7-18)
[2017-08-12 08:10] LABS: HEMATOCRIT 27 % (39-51); HEMOGLOBIN 8.8 g/dL (13.5-17.5); LYMPHOCYTES # (AUTO) 0.5 /CMM (0.8-4.8); LYMPHOCYTES % (AUTO) 2.8 % (20.0-44.0); MEAN CORPUSCULAR HEMOGLOBIN 30 PG (26.0-33.0); MEAN CORPUSCULAR HGB CONC 33 g/dl (31.0-36.0); MEAN CORPUSCULAR VOLUME 92 fL (80-96); MONOCYTES # (AUTO) 0.6 /CMM (0.1-1.30); MONOCYTES % (AUTO) 3.8 % (2.0-12.0); NEUTROPHILS # (AUTO) 14.9 /CMM (1.8-8.9); NEUTROPHILS % (AUTO) 93.4 % (43.0-81.0); PLATELET COUNT (AUTO) 145 /CMM (150-450); RDW COEFFICIENT OF VARIATION 16.5 (11.5-15.0); RED BLOOD CELL COUNT(AUTO) 2.96 MIL/uL (4.5-6.0); WHITE BLOOD COUNT (AUTO) 15.9 K/uL (4.3-11.0)
[2017-08-12] MEDS: AMANTADINE HCL 100 MG CAPSULE GT SCH ×2 (08:39→17:28)
[2017-08-12] MEDS: AMLODIPINE BESYLATE 5 MG TABLET GT SCH ×2 (08:40→16:42)
[2017-08-12 08:49] LABS: ABG BASE EXCESS 10.4 mmol/L; ABG OXYGEN SATURATION 95.6 % (92.0-98.5); ABG PCO2 51.5 mmHg (35.0-45.0); ABG PH 7.458 (7.350-7.450); ABG PO2 84.3 mmHg (75.0-100.0); AaDO2 214.3 mmHg; COHb 0.3 % (0.5-1.5); MetHb 0.7 % (0.0-1.5); O2Hb 94.6 % (94.0-97.0); SITE, ABG Right Radial
[2017-08-12] MEDS ORDERED: POTASSIUM CHLORIDE 20 MEQ POWDER PACKET GT ONE (09:30)
[2017-08-12] MEDS ORDERED: POTASSIUM CHLORIDE 20 MEQ TAB.PRT.SR PO ONE (09:30)
--- NOTE | 2017-08-12 09:36 | NUR ---
WOUND CARE CONSULT: PT PRESENTS EXTREMELY THIN AND BONY WITH PROTRUDING VERTEBRAE AND BLANCHABLE REDNESS/SCARRING ALONG SPINE. PT IS INCONTINENT OF STOOL. LEFT HEEL PEELING SKIN NOTED AND LEFT EAR HAS SMALL DRY BROWN LESION INNER ASPECT. ALL SKIN PROTECTION MEASURES IN PLACE AND DISCUSSED WITH NURSING STAFF. PT ON PERLA ISOFLEX LOW AIRLOSS BED. WILL SEE PRN. CURRENT QUYEN SCORE IS 15. IN AGREEMENT WITH PLAN OF CARE. Addendum: 08/12/17 at 0938 by BELINDA ASHFORD WNDNU Amended: Links added. Addendum: 08/12/17 at 0939 by BELINDA ASHFORD WNCOLTENU HEALED SKIN TEAR NOTED TO LEFT ARM.
[2017-08-12] MEDS: Z GUARD REMEDY 2 OZ OINT TP SCH (10:21)
--- NOTE | 2017-08-12 13:55 | NUR ---
PT SATTING AT 85% CONSISTENTLY WHILE ON SIMPLE MASK 10L. PLACED ON NON REBREATHER AT 10L AND SATURATION GOES UP TO 98%. CALLED RT, FOR DEEP SUCTION.
--- NOTE | 2017-08-12 15:03 | NUR ---
AFTER DEEP SUCTION PT STILL SATTING IN 85-95%. DR. GONZALEZ ON THE UNIT EVALS AND ORDERS TO PLACE THE PATIENT ON BIPAP WITH AN ABG IN 1HR. ORDERS PLACED RT NOTIFIED.
--- NOTE | 2017-08-12 16:34 | NUR ---
CALLED AND LEFT MESSAGE FOR GRISELDA UQINN, PER DR. BARAJAS WE NEED TO FIND OUT IF THEY WANT THE PT INTUBATED IN CASE HE NEEDS IT.
[2017-08-12 16:43] LABS: ABG BASE EXCESS 8.7 mmol/L; ABG PCO2 40.7 mmHg (35.0-45.0); ABG PH 7.518 (7.350-7.450); ABG PO2 338.4 mmHg (75.0-100.0); AaDO2 333.9 mmHg; COHb 0.3 % (0.5-1.5); MetHb 0.6 % (0.0-1.5); O2Hb 98.1 % (94.0-97.0); SITE, ABG Right Radial; VENT MODE, BG BIPAP 18/5 PS 13
--- NOTE | 2017-08-12 16:47 | NUR ---
ABG POST 1 HR OF BIPAP SHOWN TO DR. GONZALEZ, HE ORDERS TO DECREASE THE FIO2 TO 50%, AND KEEP THE PATIENT ON BIPAP. RT AWARE ORDERS FUFILLED.
[2017-08-12] MEDS: RIVAROXABAN 15 MG TABLET PO SCH (17:28)
[2017-08-12] MEDS ORDERED: FEE PK DOSING 1 MIN EA MC ONE (17:34)
[2017-08-12] MEDS: VANCOMYCIN 0.75 GM in IV D5W 250 ML IV SCH (18:34)
[2017-08-12] MEDS: MEROPENEM 500 MG in IV NS 0.9% 50 ML IV SCH (20:34)
[2017-08-12] MEDS: CARBIDOPA/LEV CR 50/200 MG 1 UDTAB.SA GT SCH (21:25)
[2017-08-13] VITALS (39 sets, daily range): BP systolic 87–138; BP diastolic 24–88
[2017-08-13] MEDS: IPRATROPIUM NEB FS 0.5 MG/2.5 ML AMPUL.NEB NEB SCH ×6 (04:10→23:53)
[2017-08-13] MEDS: ALBUTEROL HALF STRENGTH 1.25 MG/3 ML VIAL.NEB NEB SCH ×6 (04:11→23:53)
[2017-08-13 06:07] LABS: EOSINOPHILS % (AUTO) 0.2 % (0.0-6.0); HEMATOCRIT 27 % (39-51); LYMPHOCYTES # (AUTO) 0.3 /CMM (0.8-4.8); LYMPHOCYTES % (AUTO) 1.6 % (20.0-44.0); MEAN CORPUSCULAR HEMOGLOBIN 29 PG (26.0-33.0); MEAN CORPUSCULAR HGB CONC 33 g/dl (31.0-36.0); MEAN CORPUSCULAR VOLUME 89 fL (80-96); MONOCYTES # (AUTO) 0.5 /CMM (0.1-1.30); MONOCYTES % (AUTO) 2.9 % (2.0-12.0); NEUTROPHILS # (AUTO) 16.5 /CMM (1.8-8.9); NEUTROPHILS % (AUTO) 95.3 % (43.0-81.0); PLATELET COUNT (AUTO) 167 /CMM (150-450); RDW COEFFICIENT OF VARIATION 16.5 (11.5-15.0); RED BLOOD CELL COUNT(AUTO) 3.08 MIL/uL (4.5-6.0); WHITE BLOOD COUNT (AUTO) 17.3 K/uL (4.3-11.0)
[2017-08-13 06:30] LABS: CALCIUM, SERUM 9.5 mg/dL (8.5-10.1); CARBON DIOXIDE 37 mmol/L (21-32); CHLORIDE 107 mmol/L (98-107); CREATININE 1.2 mg/dL (0.6-1.3); GLUCOSE 80 mg/dL (74-106); MAGNESIUM 2.4 mg/dL (1.8-2.4); POTASSIUM 2.9 mmol/L (3.5-5.1); SODIUM SERUM 149 mmol/L (136-145); UREA NITROGEN, BLOOD 39 mg/dL (7-18)
[2017-08-13] MEDS: Z GUARD REMEDY 2 OZ OINT TP PRN (08:04)
[2017-08-13] MEDS: MEROPENEM 500 MG in IV NS 0.9% 50 ML IV SCH ×2 (08:04→20:32)
[2017-08-13] MEDS: AMANTADINE HCL 100 MG CAPSULE GT SCH ×2 (08:04→16:35)
[2017-08-13] MEDS: Z GUARD REMEDY 2 OZ OINT TP SCH (08:05)
[2017-08-13] MEDS: IV D5W 1,000 ML IV SCH ×2 (08:17→20:32)
[2017-08-13] MEDS: AMLODIPINE BESYLATE 5 MG TABLET GT SCH ×2 (08:19→16:36)
[2017-08-13 08:36] LABS: ABG OXYGEN SATURATION 95.7 % (92.0-98.5); ABG PH 7.514 (7.350-7.450); ABG PO2 81.1 mmHg (75.0-100.0); AaDO2 223.7 mmHg; COHb 0.3 % (0.5-1.5); MetHb 0.7 % (0.0-1.5); O2Hb 94.7 % (94.0-97.0); PEEP,BG 5 cm H2O; SITE, ABG Right Radial; VENT MODE, BG st 18/5 50% RR18
--- NOTE | 2017-08-13 08:59 | NUR ---
ANOTHER PHONE CALL TO GRISELDA QUINN SON, WAS MADE. NO ONE PICKED UP LEFT A MESSAGE, IT IS HIS ANSWERING MACHINE. NUMBER IN CHART. Addendum: 08/13/17 at 0901 by CHRISTOPHER ROACH RN DR. GONZALEZ WANTS TO TALK TO THE SON TO SEE IF INTUBATION IS SOMETHING THEY WOULD WANT AT THIS POINT.
--- NOTE | 2017-08-13 08:59 | NUR ---
MORNING ABG SHOWN TO DR. GONZALEZ NO CHANGES ORDERED
--- NOTE | 2017-08-13 10:49 | NUR ---
CALLED LEFT A MESSAGE FOR FIDEL QUINN [phone] ASKING TO CALL BACK CATHY. Mezmeriz.
--- NOTE | 2017-08-13 10:52 | NUR ---
2 RNS UNABLE TO GET IV LINE, ORDER OBTAINED FOR MIDLINE, DEPUTY CLERK OF COURT NOTIFIED.
--- NOTE | 2017-08-13 11:32 | NUR ---
SW left a voicemail message for pt's son Josue Agarwal in regards to scheduling a bioethics meeting to discuss plan of care.
[2017-08-13] MEDS ORDERED: POTASSIUM CHLORIDE 20 MEQ TAB.PRT.SR PO SCH (12:00)
[2017-08-13] MEDS: POTASSIUM CHLORIDE 20 MEQ POWDER PACKET PO SCH ×3 (12:20→13:29)
[2017-08-13] MEDS: VANCOMYCIN 0.75 GM in IV D5W 250 ML IV SCH (12:30)
--- NOTE | 2017-08-13 16:12 | NUR ---
HAILEY HODGES INSERTS MIDLINE, 20G TO RIGHT UPPER ARM.
[2017-08-13] MEDS: LACTOBACILLUS RHAMNOSUS GG 1 EACH CAP.SPRINK PO SCH (16:35)
[2017-08-13] MEDS: RIVAROXABAN 15 MG TABLET PO SCH (18:01)
--- NOTE | 2017-08-13 18:43 | NUR ---
RT NOTE PT IN STABLE CONDITION. PT REMAINS ON BIPAP ON SETTINGS PRESCRIBED. ALARMS SET PER PROTOCOL AND AUDIBLE. AMBU BAG AT BED SIDE. NO DISTRESS NOTED. Addendum: 08/13/17 at 1844 by JACE VALDEZ RT Amended: Links added.
--- NOTE | 2017-08-13 20:00 | NUR ---
MATHEMATICAL ENGINEERING TECHNICIAN - NOTES - RECEIVED PT IN AWAKE, NONVERBAL, PT NOTED WITH TREMORS, ON ALUMINUM FABRICATION SUPERVISOR TO PROTECT LINES AND EQUIPMENT. PT IS ON BIPAP VENT SETTINGS ORDERED. PT IS IN NSR HR 80S, BP WNL. PT HAS A PEG TUBE CLAMPED, NPO EXCEPT MEDS. PT HAS F/C WITH ADEQUATE URINE OUTPUT. PT HAS SOME SKIN TEARS AND BRUISING IN BUE. PT HAS A DARRIN MIDLINE 20G AND CLARKE 18G PIV. PT HAS D5W @ 75 ML/HR. WILL CONTINUE TO MONITOR
--- NOTE | 2017-08-13 20:11 | NUR ---
Received pt on BIPAP IPAP18, EPAP5, RR 18 50% PER MDS ORDERS, TX GIVEN ON TIME, PT TOLERATED WITH NO ADVERSE REACTIONS, WILL CONTINUE MONITORING Addendum: 08/13/17 at 2013 by CATHERINE GAGNON RT Amended: Links added.
[2017-08-13] MEDS: CARBIDOPA/LEV CR 50/200 MG 1 UDTAB.SA GT SCH (21:42)
--- NOTE | 2017-08-13 23:15 | NUR ---
PT LUNG SOUNDS RHONCHI, AND PT IS COUGHING A LOT, NT SUCTION DONE, LARGE AMOUNT OF THINK COFFEY SECRETIONS SUCTIONED OUT, ALSO ORAL CARE DONE, MOUTH CLEANED. PT DOES NOT TOLERATE BEING OFF BIPAP FOR LONG, LUNG SOUNDS STILL RHONCHI, BUT MORE CLEAR NOW, O2SAT 100%, PT LOOKS MORE COMFORTABLE NOW
[2017-08-14] VITALS (29 sets, daily range): BP systolic 97–136; BP diastolic 30–76
[2017-08-14] MEDS: IPRATROPIUM NEB FS 0.5 MG/2.5 ML AMPUL.NEB NEB SCH ×6 (03:27→23:56)
[2017-08-14] MEDS: ALBUTEROL HALF STRENGTH 1.25 MG/3 ML VIAL.NEB NEB SCH ×6 (03:27→23:56)
[2017-08-14] MEDS: VANCOMYCIN 0.75 GM in IV D5W 250 ML IV SCH (05:28)
[2017-08-14 06:12] LABS: CALCIUM, SERUM 9.3 mg/dL (8.5-10.1); CARBON DIOXIDE 38 mmol/L (21-32); CHLORIDE 109 mmol/L (98-107); CREATININE 1.1 mg/dL (0.6-1.3); GLUCOSE 141 mg/dL (74-106); POTASSIUM 3.3 mmol/L (3.5-5.1); SODIUM SERUM 150 mmol/L (136-145); UREA NITROGEN, BLOOD 39 mg/dL (7-18)
[2017-08-14] MEDS: AMLODIPINE BESYLATE 5 MG TABLET GT SCH ×3 (09:00→17:27)
--- NOTE | 2017-08-14 09:00 | NUR ---
ICU/RN: POST ABG PER MD PT CHANGED TO 12LITERS SIMPLE MASK. TOLERATING WEILL. WILL CONTINUE TO MONITOR.
[2017-08-14] MEDS: MEROPENEM 500 MG in IV NS 0.9% 50 ML IV SCH ×2 (09:43→21:03)
[2017-08-14] MEDS: AMANTADINE HCL 100 MG CAPSULE GT SCH ×2 (09:43→17:27)
[2017-08-14] MEDS: LACTOBACILLUS RHAMNOSUS GG 1 EACH CAP.SPRINK PO SCH ×2 (09:43→17:26)
[2017-08-14] MEDS: ERGOCALCIFEROL (VITAMIN D 2) 50,000 UNIT CAPSULE GT SCH (09:43)
[2017-08-14] MEDS: Z GUARD REMEDY 2 OZ OINT TP SCH (09:44)
[2017-08-14] MEDS ORDERED: POTASSIUM CHLORIDE 20 MEQ POWDER PACKET GT ONE (10:00)
[2017-08-14 10:21] LABS: ABG BASE EXCESS 12.1 mmol/L; ABG OXYGEN SATURATION 98.8 % (92.0-98.5); ABG PCO2 53.2 mmHg (35.0-45.0); ABG PH 7.463 (7.350-7.450); ABG PO2 216.8 mmHg (75.0-100.0); AaDO2 297.7 mmHg; COHb 0.3 % (0.5-1.5); MetHb 0.6 % (0.0-1.5); O2Hb 97.9 % (94.0-97.0); SITE, ABG Right Radial
[2017-08-14] MEDS: IV D5W 1,000 ML IV SCH ×2 (11:59→23:51)
[2017-08-14] MEDS: RIVAROXABAN 15 MG TABLET PO SCH (17:27)
--- NOTE | 2017-08-14 19:36 | NUR ---
ICU/RN: INITIAL NOTES,AM RECEIVED REPORT FROM NIGHT NURSE. PT AWAKE, NONVERBAL, FOLLOWS SOME SIMPLE COMMANDS. PT TAKEN OFF BIPAP AND PLACED ON 15 LITERS NON REBREATHER MASK. TOLERATING WELL. SINUS ON TELE. PIV/MIDLINE PATENT AND INTACT, NO S/S OF INFECTION OR INFILTRATION NOTED, IV FLUIDS INFUSING ORDERED. ALL NEEDS WILL BE MET, SAFETY MEASURES TAKEN, BED IN LOW POSITION, SIDE RAILS UP, CALL LIGHT WITHIN REACH. WILL CONTINUE CARE.
--- NOTE | 2017-08-14 19:39 | NUR ---
ICU/RN ENDING NOTES,AM REPORT ENDORSED TO NIGHT NURSE FOR KRISTOFER. ALL NEEDS MET, SAFETY MEASURES TAKEN, BED IN LOW POSITION, SIDE RAILS UP, CALL LIGHT WITHIN REACH. SINUS ON TELE. ON 12LITERS SIMPLE MASK. PT BATHED, LINENS CHANGED, ENDORSED FOR KRISTOFER.
--- NOTE | 2017-08-14 19:40 | NUR ---
Received patient alert non verbal with NBR MASK at 15L saturation 92%-99%.Tachypneic 39-49. Respiration even and unlabored.Rhonchi on auscultation.SR 70's-80's.Normotensive.GT clamped. Abdomen soft BS active.NPO except meds.IVF infusing well to DARRIN Midline.Site intact.FC to gravity with yellow urine.Turned and repositioned to comfort.Safety measures maintain with call light at bedside.
[2017-08-14] MEDS: CARBIDOPA/LEV CR 50/200 MG 1 UDTAB.SA GT SCH (21:03)
--- NOTE | 2017-08-14 23:35 | NUR ---
Patient tachypneic RR 53 and cathy'd down to 40's desat to 67%.Repositioned and RT notified and place patient back on BIPAP rate 18,18/5,FIO2 40% for 15 min then patient desat to 85%.FIO2 increased to 70%.Patient well tolerated.
[2017-08-15] VITALS (42 sets, daily range): BP systolic 101–171; BP diastolic 41–90
[2017-08-15] MEDS: VANCOMYCIN 0.75 GM in IV D5W 250 ML IV SCH ×2 (00:29→17:49)
[2017-08-15] MEDS: IPRATROPIUM NEB FS 0.5 MG/2.5 ML AMPUL.NEB NEB SCH ×6 (03:39→23:05)
[2017-08-15] MEDS: ALBUTEROL HALF STRENGTH 1.25 MG/3 ML VIAL.NEB NEB SCH ×6 (03:39→23:05)
--- NOTE | 2017-08-15 04:00 | NUR ---
Patient awake cleaned and repositioned.VS stable.Safety measures maintained.
--- NOTE | 2017-08-15 05:15 | NUR ---
Patient been tolerating been tolerating BIPAP saturating 100%.RT turn down FIO2 to 55%. O2 sat is at 98%.No distress noted.
[2017-08-15 05:18] LABS: EOSINOPHILS % (AUTO) 0.2 % (0.0-6.0); HEMATOCRIT 25 % (39-51); HEMOGLOBIN 8.3 g/dL (13.5-17.5); LYMPHOCYTES # (AUTO) 0.3 /CMM (0.8-4.8); LYMPHOCYTES % (AUTO) 2.5 % (20.0-44.0); MEAN CORPUSCULAR HEMOGLOBIN 29 PG (26.0-33.0); MEAN CORPUSCULAR HGB CONC 33 g/dl (31.0-36.0); MEAN CORPUSCULAR VOLUME 89 fL (80-96); MONOCYTES # (AUTO) 0.2 /CMM (0.1-1.30); MONOCYTES % (AUTO) 1.8 % (2.0-12.0); NEUTROPHILS # (AUTO) 13.2 /CMM (1.8-8.9); NEUTROPHILS % (AUTO) 95.5 % (43.0-81.0); PLATELET COUNT (AUTO) 144 /CMM (150-450); RDW COEFFICIENT OF VARIATION 15.9 (11.5-15.0); RED BLOOD CELL COUNT(AUTO) 2.84 MIL/uL (4.5-6.0); WHITE BLOOD COUNT (AUTO) 13.7 K/uL (4.3-11.0)
[2017-08-15 05:48] LABS: CALCIUM, SERUM 9.4 mg/dL (8.5-10.1); GLUCOSE 120 mg/dL (74-106); MAGNESIUM 2.4 mg/dL (1.8-2.4); PHOSPHORUS 2.3 mg/dL (2.5-4.9); UREA NITROGEN, BLOOD 39 mg/dL (7-18)
[2017-08-15 05:53] LABS: CARBON DIOXIDE 37 mmol/L (21-32); CHLORIDE 111 mmol/L (98-107); POTASSIUM 3.7 mmol/L (3.5-5.1); SODIUM SERUM 151 mmol/L (136-145)
--- NOTE | 2017-08-15 06:27 | NUR ---
Patient resting.SR.VS stable.IVF infusing well.No acute distress noted.Turned and repositioned.
--- NOTE | 2017-08-15 07:54 | NUR ---
ICU/RN: INITIAL NOTES,AM RECEIVED REPORT FROM NIGHT NURSE. PT AWAKE, NONVERBAL, FOLLOWS SOME SIMPLE COMMANDS. PT ON BIPAP, WITH SETTINGS ORDERED BY MD (18/5, RATE 18, 55%). SINUS ON TELE. PIV/MIDLINE PATENT AND INTACT, NO S/S OF INFECTION OR INFILTRATION NOTED, IV FLUIDS INFUSING ORDERED. ALL NEEDS WILL BE MET, SAFETY MEASURES TAKEN, BED IN LOW POSITION, SIDE RAILS UP, CALL LIGHT WITHIN REACH. WILL CONTINUE CARE.
--- NOTE | 2017-08-15 08:20 | NUR ---
ICU/RN: RESPIRATORY DISTRESS NOTED ON BIPAP.MD NOTIFIED.
--- NOTE | 2017-08-15 08:40 | NUR ---
ICU/RN: PT INTUBATED PER DR. GONZALEZ'S ORDERS. PT WAS ON BIPAP, RESPIRATORY DISTRESS NOTED. PT INTUBATED 7.0 ETT AT 22CM AT THE TEETH. VENT SETTINGS AC 18, 450, 100%, +[address] GONZALEZ. ABG TO BE DONE. X-RAY PENDING TUBE PLACEMENT. VENT PLUGGED INTO RED OUTLET. WILL CONTINUE TO MONITOR AND ASSESS.
--- NOTE | 2017-08-15 08:40 | NUR ---
PT INTUBATED PER DR. GONZALEZ REQUEST. PT WAS ON BIPAP IN RESP. DISTRESS. PT INTUBATED BY DR. CHAVEZ FROM THE ER WITH A 7.0 ETT AT 22CM AT THE TEETH. BILAT. B/S AUSCULTATED BY DR. CHAVEZ, POSITIVE COLOR CHANGE ON THE CAPNOGRAPHER. VENT SETTINGS AC 18, 450, 100%, +[address] GONZALEZ. ABG TO BE DONE. X-RAY PENDING TUBE PLACEMENT. VENT PLUGGED INTO RED OUTLET. SX'D MOD. AMT. OF THICK, BLOOD-TINGED, TANNISH SECRETIONS. VENT ALARMS CHECKED AND AUDIBLE PER POLICY. AMBU-BAG AT HOB. Addendum: 08/15/17 at 1323 by DOMINGA RIVERO RT Amended: Links added.
[2017-08-15] MEDS: AMLODIPINE BESYLATE 5 MG TABLET GT SCH ×3 (09:00→17:55)
[2017-08-15] MEDS: MEROPENEM 500 MG in IV NS 0.9% 50 ML IV SCH ×2 (09:41→20:35)
[2017-08-15] MEDS: LACTOBACILLUS RHAMNOSUS GG 1 EACH CAP.SPRINK PO SCH ×2 (09:41→17:49)
[2017-08-15] MEDS: AMANTADINE HCL 100 MG CAPSULE GT SCH ×2 (09:41→17:49)
[2017-08-15] MEDS: Z GUARD REMEDY 2 OZ OINT TP SCH (09:42)
[2017-08-15] MEDS: PROPOFOL 100 ML IV PRN ×2 (09:48→21:25)
[2017-08-15] MEDS ORDERED: SUCCINYLCHOLINE CHLORIDE 20 MG/ML VIAL IV ONE (10:31)
[2017-08-15] MEDS ORDERED: ETOMIDATE 2 MG/ML VIAL IV ONE (10:31)
[2017-08-15 11:28] LABS: ABG BASE EXCESS 11.4 mmol/L; ABG PCO2 57.9 mmHg (35.0-45.0); ABG PH 7.427 (7.350-7.450); ABG PO2 309.3 mmHg (75.0-100.0); AaDO2 345.8 mmHg; COHb 0.2 % (0.5-1.5); MetHb 0.4 % (0.0-1.5); O2Hb 98.4 % (94.0-97.0); PEEP,BG 5 cm H2O; SITE, ABG Right Radial; VT, ABG 450 mL
[2017-08-15] MEDS ORDERED: K PHOS NEUTRAL 250 MG TABLET PO ONE (16:00)
[2017-08-15] MEDS: IV D5W 1,000 ML IV SCH (17:49)
[2017-08-15] MEDS: RIVAROXABAN 15 MG TABLET PO SCH (17:50)
--- NOTE | 2017-08-15 19:35 | NUR ---
ICU/RN ENDING NOTES,AM REPORT ENDORSED TO NIGHT NURSE FOR CONTINUATION OF CARE. PT ON VENT SETTINGS ORDERED BY MD, NO ACUTE DISTRESS NOTED AT THIS TIME. PT SINUS ON TELE. DIPRIVAN INFUSING AT 25MCG FOR SEDATION. LEBLANC DRAINING YELLOW URINE. NPO AT THIS TIME, WILL FOLLOW UP FOR FEEDING. PIV AND MIDLINE PATENT AND INTACT, IV FLUIDS INFUSING ORDERED. SAFETY MEASURES TAKEN, BED IN LOW POSITION, SIDE RAILS UP, CALL LIGHT WITHIN REACH. WILL CONTINUE CARE.
--- NOTE | 2017-08-15 20:00 | NUR ---
CONSUMER ADVOCATE NOTES RECEIVED PTS IN BED REMAINS ON VENT ON AC SETTINGS ORDERED, ON TELE SR 80-90 ON THE MONITOR,SATING 99%. NO SOB NO DISTRESS NOTED , CONTINUE ON DIPRIVAN INFUSING AT 25MCG FOR SEDATION , F/C INTACT AND PATENT DRAINING WITH YELLOWISH URINE OUTPUT ,PTS REMAINS NPO EXCEPT MEDS . PIV AND MIDLINE INTACT AND PATENT , IVNS AT 75CC/HR IN PROGRESS, V/S STABLE AFEBRILE , ALL NEEDS ATTENDED TOO , CALL LIGHT WITHIN REACH SAFETY MEASURES TAKEN , BED IN LOW AND LOCKED POSITION , SIDE RAILS UP , HOB ELEVATED FOR ASPIRATION PRECAUTION , TURNED AND REPOSITION , SUCTION SECRETION DONE AND PRN , WILL CONTINUE TO MONITOR PT. Addendum: 08/16/17 at 0351 by LILIAN PRETTY RN IVF IS NOT NS , ITS D5W AT 75CC/HR
--- NOTE | 2017-08-15 21:00 | NUR ---
PROFESSOR OF ENVIRONMENTAL ENGINEERING NOTES ALL DUE MEDS GIVEN ORDERED.
[2017-08-15] MEDS: CARBIDOPA/LEV CR 50/200 MG 1 UDTAB.SA GT SCH (21:31)
[2017-08-16] VITALS (48 sets, daily range): BP systolic 92–136; BP diastolic 40–74
[2017-08-16] MEDS: IV D5W 1,000 ML IV SCH (02:22)
[2017-08-16] MEDS: IPRATROPIUM NEB FS 0.5 MG/2.5 ML AMPUL.NEB NEB SCH ×6 (03:30→23:52)
[2017-08-16] MEDS: ALBUTEROL HALF STRENGTH 1.25 MG/3 ML VIAL.NEB NEB SCH ×6 (03:30→23:52)
[2017-08-16 05:21] LABS: BASOPHILS % (AUTO) 0.1 % (0.0-2.0); EOSINOPHILS # (AUTO) 0.1 /CMM (0.0-0.7); EOSINOPHILS % (AUTO) 1.1 % (0.0-6.0); HEMATOCRIT 26 % (39-51); HEMOGLOBIN 8.6 g/dL (13.5-17.5); LYMPHOCYTES # (AUTO) 0.4 /CMM (0.8-4.8); LYMPHOCYTES % (AUTO) 3.9 % (20.0-44.0); MEAN CORPUSCULAR HEMOGLOBIN 29 PG (26.0-33.0); MEAN CORPUSCULAR HGB CONC 33 g/dl (31.0-36.0); MEAN CORPUSCULAR VOLUME 87 fL (80-96); MONOCYTES # (AUTO) 0.2 /CMM (0.1-1.30); MONOCYTES % (AUTO) 1.7 % (2.0-12.0); NEUTROPHILS # (AUTO) 9.2 /CMM (1.8-8.9); NEUTROPHILS % (AUTO) 93.2 % (43.0-81.0); PLATELET COUNT (AUTO) 115 /CMM (150-450); RDW COEFFICIENT OF VARIATION 15.9 (11.5-15.0); WHITE BLOOD COUNT (AUTO) 9.9 K/uL (4.3-11.0)
--- NOTE | 2017-08-16 05:24 | NUR ---
PUBLIC RELATIONS PROFESSIONAL NOTES PTS NOTED TACHYPNEIC, V/S BP 120/67 RR 35 HR 97 02 SAT 97% PTS REMAINS ON VENT SUPPORT DIPRIVAN INCREASED, WILL CONTINUE TO MONITOR PTS
[2017-08-16 05:37] LABS: CALCIUM, SERUM 9.1 mg/dL (8.5-10.1); CARBON DIOXIDE 37 mmol/L (21-32); CHLORIDE 113 mmol/L (98-107); CREATININE 0.9 mg/dL (0.6-1.3); GLUCOSE 118 mg/dL (74-106); MAGNESIUM 2.1 mg/dL (1.8-2.4); PHOSPHORUS 2.1 mg/dL (2.5-4.9); POTASSIUM 3.3 mmol/L (3.5-5.1); SODIUM SERUM 153 mmol/L (136-145); UREA NITROGEN, BLOOD 32 mg/dL (7-18)
--- NOTE | 2017-08-16 06:16 | NUR ---
MALE PT INTUBATED ON ORDERED VENT SETTINGS. LA WELL, NO S/S OF SOB NOTED. ALARMS SET & AUDIBLE THROUGHOUT ICU UNIT. MECHANICAL VENTILATOR PLUGGED IN TO RED OUTLET. BILATERAL CHEST RISE OBSERVED. WILL CONTINUE TO MONITOR Addendum: 08/16/17 at 0618 by AILYN GREGORY RT Amended: Links added. Addendum: 08/17/17 at 0616 by AILYN GREGORY RT FEMALE NOT MALE
--- NOTE | 2017-08-16 06:27 | NUR ---
MEDICAL CLINIC MANAGER NOTES PTS REMAINS ON VENT AC SETTINGS ORDERED . ON DIPRIVAN AT 30MCG /KG /MIN IN PROGRESS V/S STABLE AFEBRILE , FIO2 DECREASE TO 40% SATING 95 %WILL ENDORSE TO RN DAY SHIFT FOR CONTINUITY OF CARE.
[2017-08-16] MEDS: PROPOFOL 100 ML IV PRN ×2 (06:35→18:03)
--- NOTE | 2017-08-16 08:05 | NUR ---
ICU/RN: INITIAL NOTES,AM RECEIVED REPORT FROM NIGHT NURSE. PT SEDATED, WILL PROCEDE WITH SEDATION VACATION TO ASSESS NEURO STATUS. PT ON VENT SETTINGS ORDERED. ETT 7.0, 22CM AT THE TEETH. NO ACUTE DISTRESS NOTED. SINUS ON TELE. PIV/MIDLINE PATENT AND INTACT, NO S/S OF INFECTION OR INFILTRATION NOTED, IV FLUIDS INFUSING ORDERED. ALL NEEDS WILL BE MET, SAFETY MEASURES TAKEN, BED IN LOW POSITION, SIDE RAILS UP, CALL LIGHT WITHIN REACH. WILL CONTINUE CARE. BILATERAL WRIST RESTRAINTS ASSESSED PER PROTOCOL
[2017-08-16 08:38] LABS: ABG OXYGEN SATURATION 89.2 % (92.0-98.5); ABG PCO2 48.2 mmHg (35.0-45.0); ABG PH 7.486 (7.350-7.450); ABG PO2 60.8 mmHg (75.0-100.0); COHb 0.2 % (0.5-1.5); MetHb 0.9 % (0.0-1.5); O2Hb 88.2 % (94.0-97.0); PEEP,BG 5 cm H2O; SITE, ABG Right Radial; VENT MODE, BG AC 18 450 40% +5; VT, ABG 450 mL
--- NOTE | 2017-08-16 08:45 | NUR ---
ICU/RN: CHEST XRAY REVIEWED, CALLED RADIOLOGIST, RESULTS REVIEWED. IMAGE WILL BE REPEATED IN BETTER POSITION. WILL FOLLOW UP.
[2017-08-16] MEDS: AMLODIPINE BESYLATE 5 MG TABLET GT SCH ×2 (09:00→17:00)
[2017-08-16] MEDS: MEROPENEM 500 MG in IV NS 0.9% 50 ML IV SCH ×2 (09:28→21:58)
[2017-08-16] MEDS: AMANTADINE HCL 100 MG CAPSULE GT SCH ×2 (09:28→18:01)
[2017-08-16] MEDS: LACTOBACILLUS RHAMNOSUS GG 1 EACH CAP.SPRINK PO SCH ×2 (09:28→18:01)
[2017-08-16] MEDS: Z GUARD REMEDY 2 OZ OINT TP SCH (09:29)
--- NOTE | 2017-08-16 12:08 | NUR ---
RT NOTE PT ETT TUBE INSERTED 2CM PER MD ORDER. PT ETT NOW AT 24CM AT TEETH. PT STABLE. NO DISTRESS NOTED. Addendum: 08/16/17 at 1209 by JACE VALDEZ RT Amended: Links added.
[2017-08-16] MEDS: IV D5W 1,000 ML IV PRN (12:10)
--- NOTE | 2017-08-16 12:10 | NUR ---
ICU/RN: PT ETT TUBE INSERTED 2CM PER MD ORDER. PT ETT NOW AT 24CM AT TEETH. PT STABLE. NO DISTRESS NOTED. Addendum: 08/16/17 at 6 by DIANA NUNES RN POST ADJUSTMENT CHEST XRAY ORDERED, WILL FOLLOW UP
[2017-08-16] MEDS ORDERED: NEUTRA PHOS 1 POWD.PACKET NG ONE (13:00)
[2017-08-16] MEDS: VANCOMYCIN 0.75 GM in IV D5W 250 ML IV SCH (13:19)
--- NOTE | 2017-08-16 14:55 | NUR ---
RT NOTE LIZZIE NOT AVAILABLE AT MOMENT. PHARMACY NOTIFIED. Addendum: 08/16/17 at 1456 by JACE VALDEZ RT Amended: Links added.
[2017-08-16] MEDS: POTASSIUM CHLORIDE 20 MEQ POWDER PACKET PO SCH ×2 (15:02→18:01)
--- NOTE | 2017-08-16 17:46 | NUR ---
RT NOTE PT REMAINS INTUBATED ON VENT. 7.0 ETT 24 CM AT TEETH. ETT SECURE, CUFF INFLATED. VENT SETTINGS PRESCRIBED. ALARMS SET PER PROTOCOL AND AUDIBLE. VENT PLUGGED IN TO RED OUTLET. AMBU BAG AT BED SIDE. NO DISTRESS NOTED. Addendum: 08/16/17 at 1748 by JACE VALDEZ RT Amended: Links added.
[2017-08-16] MEDS: RIVAROXABAN 15 MG TABLET PO SCH (18:02)
[2017-08-16] MEDS ORDERED: FIBERSOURCE HN 1,000 ML BOTTLE GT PRN (19:00)
--- NOTE | 2017-08-16 19:52 | NUR ---
ICU/RN ENDING NOTES,AM REPORT ENDORSED TO NIGHT NURSE FOR CONTINUATION OF CARE. PT ON VENT SETTINGS ORDERED BY MD, NO ACUTE DISTRESS NOTED AT THIS TIME. PT SINUS ON TELE. DIPRIVAN INFUSING AT 20MCG FOR SEDATION. LEBLANC DRAINING YELLOW URINE. ORDERS PLACED FOR FEEDING, AWAITING FOR DIETARY TO DELIVER. PIV AND MIDLINE PATENT AND INTACT, IV FLUIDS INFUSING ORDERED. SAFETY MEASURES TAKEN, BED IN LOW POSITION, SIDE RAILS UP, CALL LIGHT WITHIN REACH. WILL CONTINUE CARE.
[2017-08-16] MEDS: CARBIDOPA/LEV CR 50/200 MG 1 UDTAB.SA GT SCH (21:58)
[2017-08-17] VITALS (53 sets, daily range): BP systolic 73–133; BP diastolic 27–90
[2017-08-17] MEDS: ALBUTEROL HALF STRENGTH 1.25 MG/3 ML VIAL.NEB NEB SCH ×6 (03:08→23:41)
[2017-08-17] MEDS: IPRATROPIUM NEB FS 0.5 MG/2.5 ML AMPUL.NEB NEB SCH ×6 (03:08→23:41)
[2017-08-17 05:46] LABS: CALCIUM, SERUM 8.6 mg/dL (8.5-10.1); CARBON DIOXIDE 33 mmol/L (21-32); CHLORIDE 109 mmol/L (98-107); CREATININE 0.9 mg/dL (0.6-1.3); GLUCOSE 146 mg/dL (74-106); PHOSPHORUS 2.4 mg/dL (2.5-4.9); POTASSIUM 4.3 mmol/L (3.5-5.1); SODIUM SERUM 147 mmol/L (136-145); UREA NITROGEN, BLOOD 28 mg/dL (7-18)
--- NOTE | 2017-08-17 06:22 | NUR ---
MALE PT INTUBATED ON DR ORDERED VENT SETTINGS. AL WELL, NO S/S OF SOB NOTED. ALARMS SET & AUDIBLE THROUGHOUT ICU UNIT. MECHANICAL VENTILATOR PLUGGED IN TO RED OUTLET. BILATERAL CHEST RISE OBSERVED. WILL CONTINUE TO MONITOR Addendum: 08/17/17 at 0622 by AILYN GREGORY RT Amended: Links added.
--- NOTE | 2017-08-17 06:45 | NUR ---
TETRYL SCREEN OPERATOR DF PT VANCOMYCIN 0.75GM UNAVAILABLE IN MED ROOM, UNABLE TO LOCATE. HOME THEATER SPECIALIST ED UNABLE TO PREPARE 0.75GM 2ND UNAVAILABLE. I WAS INFORMED TO ENDORSE TO ONCOMING SHIFT AND HAVE PHARMACY PREPARE MEDICATION.
[2017-08-17] MEDS: PROPOFOL 100 ML IV PRN (06:55)
[2017-08-17] MEDS: IV D5W 1,000 ML IV PRN (07:22)
--- NOTE | 2017-08-17 08:00 | NUR ---
LABS, X/R R/V'D. VSS AFEB. D/W R.T.-WILL CHECK ABG
[2017-08-17] MEDS: VANCOMYCIN 0.75 GM in IV D5W 250 ML IV SCH (08:06)
[2017-08-17 09:06] LABS: ABG BASE EXCESS 10.7 mmol/L; ABG OXYGEN SATURATION 94.8 % (92.0-98.5); ABG PCO2 45.3 mmHg (35.0-45.0); ABG PH 7.504 (7.350-7.450); ABG PO2 82.8 mmHg (75.0-100.0); AaDO2 222.7 mmHg; COHb 0.2 % (0.5-1.5); MetHb 0.8 % (0.0-1.5); O2Hb 93.9 % (94.0-97.0); PEEP,BG 5 cm H2O; SITE, ABG Right Radial; VENT MODE, BG AC 18 450 50% +5; VT, ABG 450 mL
[2017-08-17] MEDS: MEROPENEM 500 MG in IV NS 0.9% 50 ML IV SCH ×2 (09:13→21:00)
[2017-08-17] MEDS: LACTOBACILLUS RHAMNOSUS GG 1 EACH CAP.SPRINK PO SCH ×2 (09:13→18:24)
[2017-08-17] MEDS: Z GUARD REMEDY 2 OZ OINT TP SCH (09:14)
[2017-08-17] MEDS: AMANTADINE HCL 100 MG CAPSULE GT SCH ×2 (09:14→18:18)
[2017-08-17] MEDS: AMLODIPINE BESYLATE 5 MG TABLET GT SCH (09:14)
--- NOTE | 2017-08-17 11:13 | NUR ---
TRANSIENT HYPOTENSION AFTER NORVASC GIVEN BY PEG. D/W AND DRUG D/C'D
--- NOTE | 2017-08-17 11:30 | NUR ---
R/V'D [facility] DOCTORS CARLOS AND TUTU. PLAN FOR TRACH PER CAMILLA. DR Rodriguez TO ARRANGE
[2017-08-17] MEDS ORDERED: NEUTRA PHOS 1 POWD.PACKET NG ONE (13:00)
--- NOTE | 2017-08-17 13:00 | NUR ---
AWAKE AND AGITATED ON LESS DIPRIVAN WITH SIGNIF TACHYPNEA WITH DESATURATION -FIO2 TITRATED UP AND PT RE SEDATED WITH RESOLUTION OF PROBLEM OVER ONE HR
--- NOTE | 2017-08-17 13:10 | NUR ---
RT NOTE PT FIO2 INCREASED TO 100% DUE TO EPISODE OF DESATURATION. RN NOTIFIED. Addendum: 08/17/17 at 1311 by JACE VALDEZ RT Amended: Links added.
[2017-08-17] MEDS ORDERED: IV NS 0.9% 500 ML IV ONE (15:00)
--- NOTE | 2017-08-17 15:00 | NUR ---
D/W DR GONZALEZ ONGOING SBP < 90-NORMAL SALINE 500 ML FLUID CHALLENGE.
[2017-08-17] MEDS: Z GUARD REMEDY 2 OZ OINT TP PRN (15:39)
[2017-08-17] MEDS: PROPOFOL 10MG/ML 50ML 50 ML IV PRN ×2 (15:40→18:30)
--- NOTE | 2017-08-17 17:00 | NUR ---
TEMP 102 RECTAL. SBP 80-90 MMHG. HIGH PEG RESIDUAL 300 ML FDG. FEEDING STOPPED AND D/W DR CAM ALL CURRENT IV FLUIDS, VS, RESIDUALS, FEVERS. ORDERS FOR LEVOPHED PRN AND TYLENOL
[2017-08-17] MEDS ORDERED: ACETAMINOPHEN 650 MG/20.3 ML UDC GT PRN (18:00)
[2017-08-17] MEDS ORDERED: NOREPINEPHRINE 16 MG in IV D5W 500 ML IV PRN (18:00)
[2017-08-17] MEDS: RIVAROXABAN 15 MG TABLET PO SCH (18:19)
[2017-08-17] MEDS: CARBIDOPA/LEV CR 50/200 MG 1 UDTAB.SA GT SCH (21:03)
[2017-08-18] VITALS (34 sets, daily range): BP systolic 86–168; BP diastolic 48–71
[2017-08-18] MEDS: PROPOFOL 10MG/ML 50ML 50 ML IV PRN ×5 (00:44→18:30)
[2017-08-18] MEDS: VANCOMYCIN 0.75 GM in IV D5W 250 ML IV SCH ×2 (02:31→20:00)
[2017-08-18] MEDS: ALBUTEROL HALF STRENGTH 1.25 MG/3 ML VIAL.NEB NEB SCH ×6 (04:21→20:30)
[2017-08-18] MEDS: IPRATROPIUM NEB FS 0.5 MG/2.5 ML AMPUL.NEB NEB SCH ×6 (04:21→20:30)
--- NOTE | 2017-08-18 05:24 | NUR ---
PT STABLE ON DR ORDERED VENT SETTINGS. AL WELL, NO S/S OF SOB NOTED. ALARMS SET & AUDIBLE THROUGHOUT ICU UNIT. MECHANICAL VENTILATOR PLUGGED IN TO RED OUTLET. PHUC AT H.O.B. BILATERAL CHEST RISE OBSERVED. WILL CONTINUE TO MONITOR Addendum: 08/18/17 at 0524 by AILYN GREGORY RT Amended: Links added.
[2017-08-18 05:36] LABS: CREATININE 1.3 mg/dL (0.6-1.3); GLUCOSE 141 mg/dL (74-106); PHOSPHORUS 4.5 mg/dL (2.5-4.9); UREA NITROGEN, BLOOD 42 mg/dL (7-18)
[2017-08-18 05:48] LABS: CARBON DIOXIDE 33 mmol/L (21-32); CHLORIDE 101 mmol/L (98-107); POTASSIUM 3.9 mmol/L (3.5-5.1); SODIUM SERUM 138 mmol/L (136-145)
--- NOTE | 2017-08-18 07:55 | NUR ---
RT PATIENT REC'D ORALLY INTUBATED ON [facility] VENT WITH SETTINGS SET BY MD AL BENÍTEZ. VENT ALARMS CHECKED + AUDIBLE. CUFF CHECKED TRANSMISSION SPECIALIST. SX'D WITH SMALL AMT PALE SEMITHICK SECRETIONS. B/S COARSE. AMBU BAG AT HOB. Addendum: 08/18/17 at 1104 by MAURICE GARCIA RT Amended: Links added.
--- NOTE | 2017-08-18 07:59 | NUR ---
TIPPLE ENGINEER INITIAL NOTE PATIENT RECEIVED IN BE STABLE NO SOB NOTED NO DISTRESS NOTED AT THIS TIME TOLERATING ORDERED VENT SETTINGS WELL, BILATERAL CHEST RISE OBSERVED. PATIENT INITIAL ASSESSMENT COMPLETED PATIENT IN STABLE CONDITION AT THIS TIME RN WILL CONTINUE TO MONITOR
[2017-08-18] MEDS: MEROPENEM 500 MG in IV NS 0.9% 50 ML IV SCH ×2 (08:49→21:25)
[2017-08-18] MEDS: LACTOBACILLUS RHAMNOSUS GG 1 EACH CAP.SPRINK PO SCH ×2 (08:49→17:22)
[2017-08-18] MEDS: AMANTADINE HCL 100 MG CAPSULE GT SCH ×2 (08:49→17:22)
[2017-08-18] MEDS: Z GUARD REMEDY 2 OZ OINT TP SCH (08:49)
[2017-08-18 09:17] LABS: ABG BASE EXCESS 7.3 mmol/L; ABG OXYGEN SATURATION 94.8 % (92.0-98.5); ABG PCO2 60.5 mmHg (35.0-45.0); ABG PH 7.364 (7.350-7.450); ABG PO2 84.5 mmHg (75.0-100.0); AaDO2 203.9 mmHg; COHb 0.3 % (0.5-1.5); MetHb 0.4 % (0.0-1.5); O2Hb 94.1 % (94.0-97.0); SITE, ABG Right Radial
[2017-08-18] MEDS: METOCLOPRAMIDE HCL 10 MG/2 ML VIAL IV SCH ×2 (13:41→21:37)
--- NOTE | 2017-08-18 16:01 | NUR ---
RN NOTE PATIENT WITH NOTED RESIDUALS THROUGHOUT THE DAY G-TUBES STOPPED THIS AM AT 8AM RESIDUALS AT 300ML FEEDINGS RESUMED AT 10AM AND STOPPED AGAIN AT 1530 DUE TO 200 ML OF RESIDUALS CHARGE NURSE NOTIFIED ABOUT PATIENT INCREASED RESIDUALS RN WILL CONTINUE TO FOLLOW , ALSO PATIENT MD NOTIFIED OF INCREASED RISDUALS MD ORDERED CARAFATE TO HELP WITH STOMACH IRRITATION AND STATES THAT THE PATIENT WILL BE GOING FOR A TRACH PLACEMENT 08/19/16.
[2017-08-18] MEDS: RIVAROXABAN 15 MG TABLET PO SCH (17:26)
[2017-08-18] MEDS: IV D5W 1,000 ML IV PRN (18:29)
--- NOTE | 2017-08-18 18:48 | NUR ---
TERRITORY SALES PROFESSIONAL CLOSING NOTE PATIENT STABLE AT THIS TIME NO CHANGES IN CARDIAC OUT PUT PATIENT CONTINUES ON PROPOFOL PATIENT TOLERATES WELL NO SOB NOTED PATIENT TURNED AND REPOSITIONED Q 2HRS PATIENT VITALS WITH IN NORMAL LIMITS , NO CONCERNS AT THIS TIME TOLERATING VENT SETTINGS WELL AT THIS [place] PATIENT HAS PLANNED NOT YET SCHEDULED FOR THE AM
--- NOTE | 2017-08-18 19:30 | NUR ---
CERTIFIED PERSONAL CHEF INITIAL NOTES RECEIVED PATIENT NON-VERBAL, RESPONSIVE TO DEEP PAIN. NO S/S OF PAIN OR DISCOMFORT. NO RESPIRATORY DISTRESS NOTED. ETT 7CM, 24CM AT THE TEETH. WITH VENT SETTINGS AC 18, VT 450, FIO2 50%, PEEP OF 5. ON TELE MONITOR SR 61. WITH GT PATENT AND INTACT, NOTED WITH 20ML RESIDUAL. GTF HELD AT THIS TIME, PER AM NURSE, PATIENT NOT TOLERATING FEEDS. WITH F/C PATENT AND INTACT. DARRIN MIDLINE PATENT AND INTACT WITH D5W AT 75ML/HR, CLARKE 18G PATENT AND INTACT, WITH PROPOFOL AT 30MIC/KG/MIN. HOB ELEVATED. SIDE RALS UP AND LOCKED. BED KEPT AT LOWEST POSITION. WILL CONTINUE TO MONITOR.
--- NOTE | 2017-08-18 20:15 | NUR ---
CHIP MIXING MACHINE OPERATOR NOTE VANCO TROUGH REDRAWN
--- NOTE | 2017-08-18 20:36 | NUR ---
FIO2 INCREASED TO 60% DUE TO LOW SPO2
--- NOTE | 2017-08-18 20:45 | NUR ---
BEEF GRINDER NOTE PATIENT NOTED TO BE DESATURATING 85% AFTER REPOSITIONING, NO DISTRESS NOTED. RT WAS AT BEDSIDE, FIO2 INCREASED TO 60%, BREATHING TX BEING ADMINISTERED SPO2 100%. WILL CONTINUE TO MONITOR.
[2017-08-18] MEDS: CARBIDOPA/LEV CR 50/200 MG 1 UDTAB.SA GT SCH (21:25)
--- NOTE | 2017-08-18 22:18 | NUR ---
PT RECEIVED ON VENT VIA CHARTED SETTINGS AND ROUTE. TOLERATING VENT SETTINGS. AMBU BAG AT BEDSIDE, ALARMS SET AND AUDIBLE. VENT PLUGGED INTO RED OUTLET. NO RESP DISTRESS NOTED. WILL CONTINUE TO MONITOR Addendum: 08/18/17 at 2218 by CA YAP RT Amended: Links added.
[2017-08-19] VITALS (48 sets, daily range): BP systolic 92–155; BP diastolic 30–66
[2017-08-19] MEDS: PROPOFOL 10MG/ML 50ML 50 ML IV PRN ×6 (00:13→21:00)
[2017-08-19] MEDS: ALBUTEROL HALF STRENGTH 1.25 MG/3 ML VIAL.NEB NEB SCH ×7 (00:22→23:26)
[2017-08-19] MEDS: IPRATROPIUM NEB FS 0.5 MG/2.5 ML AMPUL.NEB NEB SCH ×7 (00:22→23:26)
[2017-08-19] MEDS: METOCLOPRAMIDE HCL 10 MG/2 ML VIAL IV SCH ×3 (05:23→20:57)
[2017-08-19 05:39] LABS: EOSINOPHILS # (AUTO) 0.3 /CMM (0.0-0.7); EOSINOPHILS % (AUTO) 2.6 % (0.0-6.0); HEMATOCRIT 23 % (39-51); HEMOGLOBIN 7.6 g/dL (13.5-17.5); LYMPHOCYTES # (AUTO) 0.4 /CMM (0.8-4.8); LYMPHOCYTES % (AUTO) 3.7 % (20.0-44.0); MEAN CORPUSCULAR HEMOGLOBIN 29 PG (26.0-33.0); MEAN CORPUSCULAR HGB CONC 33 g/dl (31.0-36.0); MEAN CORPUSCULAR VOLUME 87 fL (80-96); MONOCYTES # (AUTO) 0.4 /CMM (0.1-1.30); MONOCYTES % (AUTO) 3.3 % (2.0-12.0); NEUTROPHILS # (AUTO) 10.2 /CMM (1.8-8.9); NEUTROPHILS % (AUTO) 90.4 % (43.0-81.0); PLATELET COUNT (AUTO) 76 /CMM (150-450); RDW COEFFICIENT OF VARIATION 16.2 (11.5-15.0); RED BLOOD CELL COUNT(AUTO) 2.66 MIL/uL (4.5-6.0); WHITE BLOOD COUNT (AUTO) 11.3 K/uL (4.3-11.0)
[2017-08-19 06:00] LABS: INR 1.08 (0.87-1.13)
[2017-08-19 06:07] LABS: CALCIUM, SERUM 7.9 mg/dL (8.5-10.1); CARBON DIOXIDE 34 mmol/L (21-32); CHLORIDE 104 mmol/L (98-107); CREATININE 1.2 mg/dL (0.6-1.3); GLUCOSE 105 mg/dL (74-106); POTASSIUM 4.3 mmol/L (3.5-5.1); SODIUM SERUM 142 mmol/L (136-145); UREA NITROGEN, BLOOD 41 mg/dL (7-18)
--- NOTE | 2017-08-19 07:15 | NUR ---
SELLING UNDERWRITER NOTES RECEIVED PATIENT SEDATED , NOT IN ACUTE DISTRESS , RESPIRATIONS EVEN AND UNLABORED WITH SPO2 OF 100% VIA MECHANICAL VENTILATOR SETTINGS ORDERED, ETT 7.0 / [address] , SR 78 ON BEDSIDE MONITOR , GT PATENT AND INTACT CLAMPED , FC DRAINING WELL VIA GRAVITY WITH CLEAR CLOUDY URINE , DARRIN MIDLINE WITH D5W @ 75ML/HR INFUSING WELL , DEPRIVAL @ 40MCG/KG/MIN INFUSING WELL , CLARKE # 18 PATENT AND INTACT SL , ALL NEEDS ATTENDED , BED ON LOW AND LOCKED POSITION , SIDE RAIL X2 ,CALL LIGHT WITHIN REACH , HOB @ 35 WILL CONTINUE TO MONITOR
--- NOTE | 2017-08-19 07:44 | NUR ---
MEDICAL PATHOLOGY TEACHER CLOSING NOTES NO SIGNIFICANT CHANGES OVERNIGHT. NO RESPIRATORY DISTRESS NOTED. TOLERATING VENT SETTINGS AC 18, VT 450, FIO2 60%, PEEP 5, SPO2 100%. ALL NEEDS ANTICIPATED AND MET. WITH DIPRIVAN DRIP AT 40MCG/KG/MIN RUNNING, AND D5W AT 75ML/ HR RUNNING. SR ON TELE MONITOR. GT PATENT AND INTACT. NPO SINCE MIDNIGHT. FOR POSSIBLE TRACH PLACEMENT TODAY. TURNED AND REPOSITIONED Q2 AND PRN. KEPT CLEAN AND DRY. HOB KEPT ELEVATED. SIDE RAILS UP AND LOCKED. BED KEPT AT LOWEST POSITION. CONTINUITY OF CARE ENDORSED TO AM NURSE.
--- NOTE | 2017-08-19 08:11 | NUR ---
PT RECEIVED ON [facility] VENT WITH NOTED SETTING PER MD. VENT ALARMS CHECKED AND AUDIBLE, DIABETIC EDUCATOR DONE. VENT PLUGGED INTO RED OUTLET. AMBUBAG AT BEDSIDE. NO SOB OR RESP DISTRESS NOTED. PT SX'ED AND LAVAGED PRN. BREATH SOUNDS EQUAL DIMINISHED. PLAN IS TO CONTINUE CURRENT CARE UNDER MD ORDERS AND MONITOR PT FOR CHANGES Addendum: 08/19/17 at 0811 by GEETA FARMER RT Amended: Links added.
[2017-08-19] MEDS: LACTOBACILLUS RHAMNOSUS GG 1 EACH CAP.SPRINK PO SCH ×2 (08:22→17:00)
[2017-08-19] MEDS: Z GUARD REMEDY 2 OZ OINT TP SCH (08:22)
[2017-08-19] MEDS: AMANTADINE HCL 100 MG CAPSULE GT SCH ×2 (08:22→17:00)
[2017-08-19] MEDS: IV D5W 1,000 ML IV PRN ×3 (08:27→18:31)
[2017-08-19] MEDS: MEROPENEM 500 MG in IV NS 0.9% 50 ML IV SCH ×2 (08:27→20:57)
[2017-08-19] MEDS: VANCOMYCIN 0.75 GM in IV D5W 250 ML IV SCH (12:35)
--- NOTE | 2017-08-19 13:30 | NUR ---
[employer] APPRENTICE NOTES RECEIVED A CALL FROM DR DAWKINS'S OFFICE , TRACH PLACEMENT WILL BE SCHEDULE @ 0700 TE[place]ORO AM , HOLD ANTICOAGULANTS , AND KEEP PT NPO .
[2017-08-19 16:08] LABS: ABG BASE EXCESS 9.1 mmol/L; ABG OXYGEN SATURATION 97.1 % (92.0-98.5); ABG PCO2 51.6 mmHg (35.0-45.0); ABG PO2 108.5 mmHg (75.0-100.0); COHb 0.3 % (0.5-1.5); MetHb 1.1 % (0.0-1.5); O2Hb 95.7 % (94.0-97.0); PEEP,BG 5 cm H2O; SITE, ABG Right Radial; VENT MODE, BG AC 18 450; VT, ABG 450 mL
--- NOTE | 2017-08-19 16:23 | NUR ---
ADVERTISING OPERATIONS COORDINATOR NOTES RT MURAD NOTIFIED DR GONZALEZ REGARDING ABG RESULT , FIO2 TITRATED DOWN TO 40% ,
[2017-08-19] MEDS: RIVAROXABAN 15 MG TABLET PO SCH (17:14)
--- NOTE | 2017-08-19 17:29 | NUR ---
COOKING APPLIANCE REPAIR TECHNICIAN NOTES GT MEDS HELD PT IS NPO FOR TRACHEOSTOMY PLACEMENT @ 08/20/17 @ 0700AM
[2017-08-19 18:45] LABS: BASOPHILS % (AUTO) 0.1 % (0.0-2.0); EOSINOPHILS # (AUTO) 0.2 /CMM (0.0-0.7); EOSINOPHILS % (AUTO) 2.1 % (0.0-6.0); HEMATOCRIT 24 % (39-51); HEMOGLOBIN 7.7 g/dL (13.5-17.5); LYMPHOCYTES # (AUTO) 0.4 /CMM (0.8-4.8); LYMPHOCYTES % (AUTO) 4.1 % (20.0-44.0); MEAN CORPUSCULAR HEMOGLOBIN 28 PG (26.0-33.0); MEAN CORPUSCULAR HGB CONC 33 g/dl (31.0-36.0); MEAN CORPUSCULAR VOLUME 87 fL (80-96); MONOCYTES # (AUTO) 0.3 /CMM (0.1-1.30); MONOCYTES % (AUTO) 3.5 % (2.0-12.0); NEUTROPHILS # (AUTO) 8.5 /CMM (1.8-8.9); NEUTROPHILS % (AUTO) 90.2 % (43.0-81.0); PLATELET COUNT (AUTO) 74 /CMM (150-450); RDW COEFFICIENT OF VARIATION 16.4 (11.5-15.0); RED BLOOD CELL COUNT(AUTO) 2.71 MIL/uL (4.5-6.0); WHITE BLOOD COUNT (AUTO) 9.4 K/uL (4.3-11.0)
[2017-08-19 19:31] LABS: BAND % (MANUAL) 5 % (0.0-5.0); EOSINOPHILS % (MANUAL) 1 % (0-4); LYMPHOCYTES % (MANUAL) 2 % (16-48); MONOCYTES % (MANUAL) 6 % (0-11.0); NEUTROPHILS % (MANUAL) 86 (42-76)
--- NOTE | 2017-08-19 20:30 | NUR ---
SPECIAL EDUCATION SCIENCE TEACHER - REC'D VERBAL REPORT FROM BLAKE RN. REC'D PT. ON DIPRIVAN GTT. AT 40 MCG/KG/MIN. PT'S VSS. AFEBRILE. PEG/CLAMPED. NPO. [place]BLANC CATH TO GRAVITY. PT.HAS SEVERAL SKIN ISSUES. SKIN CARE PROVIDED Q SHIFT. ALL PULSES X 4 EXT. ARE PALPABLE, BUT WEAK. PT'S HEAD IS ALWAYS DRIFTING TO THE LEFT. PILLOWS & ROLLED TOWELS ARE USED TO KEEP PT'S HEAD ALIGNED.TRACH TO VENT W/SETTINGS AT AC-18, TV-450, 50% & PEEP OF 5. RHONCHI AUSC. TO ALL LOBES. O2 SATS ARE AT 100%. RUE MIDLINE DL HAS ALL PORTS PATENT TO FLUSH. CONT. POC.
[2017-08-19] MEDS: CARBIDOPA/LEV CR 50/200 MG 1 UDTAB.SA GT SCH (21:28)
[2017-08-20] VITALS (58 sets, daily range): BP systolic 68–174; BP diastolic 26–80
[2017-08-20] MEDS: PROPOFOL 10MG/ML 50ML 50 ML IV PRN ×3 (00:58→06:34)
[2017-08-20] MEDS: ALBUTEROL HALF STRENGTH 1.25 MG/3 ML VIAL.NEB NEB SCH ×6 (02:52→23:56)
[2017-08-20] MEDS: IPRATROPIUM NEB FS 0.5 MG/2.5 ML AMPUL.NEB NEB SCH ×6 (02:53→23:56)
[2017-08-20 05:21] LABS: BASOPHILS % (AUTO) 0.4 % (0.0-2.0); EOSINOPHILS # (AUTO) 0.2 /CMM (0.0-0.7); EOSINOPHILS % (AUTO) 2.5 % (0.0-6.0); HEMATOCRIT 22 % (39-51); HEMOGLOBIN 7.4 g/dL (13.5-17.5); LYMPHOCYTES # (AUTO) 0.5 /CMM (0.8-4.8); LYMPHOCYTES % (AUTO) 6.3 % (20.0-44.0); MEAN CORPUSCULAR HEMOGLOBIN 30 PG (26.0-33.0); MEAN CORPUSCULAR HGB CONC 33 g/dl (31.0-36.0); MEAN CORPUSCULAR VOLUME 88 fL (80-96); MONOCYTES # (AUTO) 0.2 /CMM (0.1-1.30); MONOCYTES % (AUTO) 2.7 % (2.0-12.0); NEUTROPHILS # (AUTO) 7.5 /CMM (1.8-8.9); NEUTROPHILS % (AUTO) 88.1 % (43.0-81.0); PLATELET COUNT (AUTO) 78 /CMM (150-450); RDW COEFFICIENT OF VARIATION 17.3 (11.5-15.0); RED BLOOD CELL COUNT(AUTO) 2.51 MIL/uL (4.5-6.0); WHITE BLOOD COUNT (AUTO) 8.5 K/uL (4.3-11.0)
[2017-08-20 05:24] LABS: CALCIUM, SERUM 7.9 mg/dL (8.5-10.1); CREATININE 1.2 mg/dL (0.6-1.3); GLUCOSE 94 mg/dL (74-106); MAGNESIUM 2.1 mg/dL (1.8-2.4); PHOSPHORUS 3.5 mg/dL (2.5-4.9); UREA NITROGEN, BLOOD 35 mg/dL (7-18)
[2017-08-20 05:36] LABS: CARBON DIOXIDE 36 mmol/L (21-32); CHLORIDE 101 mmol/L (98-107); POTASSIUM 4.1 mmol/L (3.5-5.1); SODIUM SERUM 137 mmol/L (136-145)
--- NOTE | 2017-08-20 05:39 | NUR ---
RECEIVED ON [facility] VENT WITH NOTED SETTING. ETT PROPERLY SECURED. VENT PLUGGED INTO RED OUTLET. ALARMS SET AND AUDIBLE. AMBU BAG AT [facility]. NO SOB OR RESP DISTRESS NOTED. PRN SX GIVEN NEEDED. NO ADVERSE REACTIONS/ SOB/ DISTRESS NOTED ALL SHIFT. Addendum: 08/20/17 at 0539 by SATISH WESLEY RT Amended: Links added.
[2017-08-20 05:48] LABS: INR 1.01 (0.87-1.13)
[2017-08-20 05:59] LABS: LYMPHOCYTES % (MANUAL) 3 % (16-48); MONOCYTES % (MANUAL) 3 % (0-11.0); NEUTROPHILS % (MANUAL) 94 (42-76)
[2017-08-20] MEDS ORDERED: LIDOCAINE 0.5% HCL 50 ML VIAL ONE (06:21)
[2017-08-20] MEDS ORDERED: ANESTHESIA TRAY IN PYXIS 1 EA TRAY MC ONE (06:21)
[2017-08-20] MEDS: METOCLOPRAMIDE HCL 10 MG/2 ML VIAL IV SCH ×3 (06:31→20:12)
--- NOTE | 2017-08-20 06:45 | NUR ---
EMERGENCY DEPARTMENT DIRECTOR - COMP. BEDBATH DONE AT 3AM. ORAL,VENT,PEG,SKIN-WOUND CARE ADMINISTERED. PT. HAS BEEN NPO SINCE YESTERDAY. OR TEAM AT BEDSIDE AT PRESENT FOR TRACHEOSTOMY. ACLS PROTOCOL TO O.R. CONT. POC.
[2017-08-20] MEDS ORDERED: FENTANYL PF 100MCG/2ML AMPUL ONE (06:51)
[2017-08-20] MEDS ORDERED: ROCURONIUM BROMIDE 50 MG/5 ML ONE (06:51)
--- NOTE | 2017-08-20 07:15 | NUR ---
DELIVERY MAN NOTES RECEIVED PATIENT SEDATED , NOT IN ACUTE DISTRESS , RESPIRATIONS EVEN AND UNLABORED WITH SPO2 OF 100% VIA MECHANICAL VENTILATOR SETTINGS ORDERED, ETT 7.0 / [address] , SR 80 ON BEDSIDE MONITOR , GT PATENT AND INTACT CLAMPED , FC DRAINING WELL VIA GRAVITY WITH CLEAR CLOUDY URINE , DARRIN MIDLINE WITH D5W @ 75ML/HR INFUSING WELL , DIPRIVAN @ 40MCG/KG/MIN INFUSING WELL , IVF HELD PT WILL BE TRANSFERED TO OR FOR TRACHEOSTOMY PLACEMENT , , CLARKE # 18 PATENT AND INTACT SL , ALL NEEDS ATTENDED , BED ON LOW AND LOCKED POSITION , SIDE RAIL X2 ,CALL LIGHT WITHIN REACH , HOB @ 35 , PRE OP CHECKLIST DONE BY YAAY PM SHIFT .
[2017-08-20] MEDS ORDERED: LIDOCAINE 2%-EPI 1:200,000 20 ML VIAL IJ ONE (07:23)
[2017-08-20] MEDS: MEROPENEM 500 MG in IV NS 0.9% 50 ML IV SCH ×2 (08:08→20:11)
[2017-08-20] MEDS: IV D5W 1,000 ML IV PRN (08:08)
[2017-08-20] MEDS: LACTOBACILLUS RHAMNOSUS GG 1 EACH CAP.SPRINK PO SCH ×2 (08:08→16:59)
[2017-08-20] MEDS: Z GUARD REMEDY 2 OZ OINT TP SCH (08:08)
[2017-08-20] MEDS: AMANTADINE HCL 100 MG CAPSULE GT SCH ×2 (08:08→16:59)
--- NOTE | 2017-08-20 08:30 | NUR ---
SERVICING MANAGER NOTES PT STABLE POST TRACH PLACEMENT , AFEBRILE , V/S STABLE TOLERATING CURRENT VENT SETTINGS WITH SPO2 OF 100% , TRACH OF SHILEY # 8 C/D/I WITH NO BLEEDING NOTED , POST OP ORDERS CARRIED OUT .
--- NOTE | 2017-08-20 09:16 | NUR ---
CATH LAB TECHNOLOGIST NOTES SEEN AND EVALUATED BY DR GONZALEZ , DISCUSSED LABS , CHEST XRAY , AND CURRENT VENT SETTINGS , RR OF 30'S , AFEBRILE , NO DIARRHEA NOTED , PER MD ORDER AN ABG AND CALL HIM FOR THE RESULT Addendum: 08/20/17 at 0918 by BLAKE GUERRERO RN S/P TRACH PLACEMENT . TRACH SITE C/D/I WITH NO ACTIVE BLEEDING NOTED MD AWARE
[2017-08-20 09:26] LABS: ABG BASE EXCESS 7.8 mmol/L; ABG OXYGEN SATURATION 93.7 % (92.0-98.5); ABG PCO2 52.9 mmHg (35.0-45.0); ABG PH 7.416 (7.350-7.450); ABG PO2 76.6 mmHg (75.0-100.0); AaDO2 220.4 mmHg; COHb 0.3 % (0.5-1.5); MetHb 0.3 % (0.0-1.5); O2Hb 93.1 % (94.0-97.0); PEEP,BG 5 cm H2O; SITE, ABG Right Radial; VT, ABG 450 mL
[2017-08-20] MEDS: FIBERSOURCE HN 1,000 ML BOTTLE GT PRN (10:11)
--- NOTE | 2017-08-20 10:26 | NUR ---
ARCHITECT IN TRAINING NOTES SPOKE WITH DR GONZALEZ , DISCUSSED ABG , RR OF 30-35 ON CURRENT VENT SETTINGS , ASKED IF HE WANTS TO ADD PAIN MEDICATION PRN , PER MD START PT ON MORPHINE 2 MG IV Q2 PRN , ORDER CARRIED OUT
--- NOTE | 2017-08-20 10:28 | NUR ---
CATH LAB NOTES RECEIVED A CALL FROM DIETITIAN , PER DIETITIAN , START GT FEEDING OF FIBERSOURCE @ 40ML/HR MAX DOSE , ORDER CARRIED OUT
[2017-08-20] MEDS: MORPHINE SULFATE INJ 4 MG/ML DISP.SYRIN IV PRN ×4 (11:20→21:15)
[2017-08-20] MEDS: VANCOMYCIN 0.75 GM in IV D5W 250 ML IV SCH (12:14)
[2017-08-20] MEDS: RIVAROXABAN 15 MG TABLET PO SCH (16:55)
[2017-08-20] MEDS: IV NS 0.9% 250 ML IV PRN (17:12)
--- NOTE | 2017-08-20 17:17 | NUR ---
NAPKIN MACHINE OPERATOR NOTES SPOKE WITH DR CAM , DISCUSSED PT S/P TRACH PLACEMENT , GT FEEDING OF FIBERSOURCE @ 40ML/HR TOLERATING WELL WITH 5ML RESIDUALS NOTED , PT ON IVF OF D52 @ 75ML/HR , PER DC IVF AND START PT NS @ TKO , , DISCUSSED XARELTO DOSE , PER MD OK TO HOLD XARELTO TODAY AND RESTART TEODORO , ORDERS CARRIED OUT
--- NOTE | 2017-08-20 17:41 | NUR ---
FOUNTAIN CLERK NOTES SPOKE WITH DR GONZALEZ , DISCUSSED VENT SETTINGS , PT STILL TACHYPNEIC DESPITE OF GIVING MORPHINE 2MG , PER MD ORDER ABG AND CHEST XRAY , ORDERS CARRIED OUT
[2017-08-20 18:10] LABS: ABG BASE EXCESS 8.4 mmol/L; ABG OXYGEN SATURATION 90.1 % (92.0-98.5); ABG PCO2 48.9 mmHg (35.0-45.0); ABG PH 7.451 (7.350-7.450); ABG PO2 61.9 mmHg (75.0-100.0); AaDO2 239.6 mmHg; COHb 0.3 % (0.5-1.5); MetHb 0.7 % (0.0-1.5); O2Hb 89.2 % (94.0-97.0); PEEP,BG 5 cm H2O; SITE, ABG Right Radial; VT, ABG 450 mL
--- NOTE | 2017-08-20 18:34 | NUR ---
TRIPE SCRAPER NOTES RELAYED ABG RESULT TO DR GONZALEZ , RECEIVED ORDER TO INCREASE MORPHINE SULFATE 2MG TO 4MG Q2 PRN , ATIVAN 2MG Q2 PRN AND INCREASE FIO2 TO 65 % , ORDERS CARRIED OUT
[2017-08-20] MEDS: LORAZEPAM INJ 2 MG/ML VIAL IV PRN (18:44)
--- NOTE | 2017-08-20 19:30 | NUR ---
ELEMENTARY SCHOOL TEACHER: PT RECEIVED S/P TRACHEOSTOMY AND TOLERATING VENT SETTINGS ORDERED. NO ACUTE DISTRESS, NO EVIDENCE OF DISCOMFORT. SR ON MONITOR. AFEBRILE. EYES OPEN BUT DOES NOT TRACK, UNABLE TO FOLLOW COMMANDS. ON FIBERSOURCE AT 40ML/HR WT 50CC RESIDUAL. DARRIN MIDLINE TO TKO WT NO S/S OF INFILTRATION. F/C PATENT AND INTACT DRAINING YELLOW URINE WT SEDIMENTS TO GRAVITY. HOB ELEVATED AT 35 DEGREES.SAFETY PRECAUTION NOTED. WILL CONTINUE TO MONITOR.
[2017-08-20] MEDS: CARBIDOPA/LEV CR 50/200 MG 1 UDTAB.SA GT SCH (21:14)
[2017-08-21] VITALS (43 sets, daily range): BP systolic 105–168; BP diastolic 46–68
--- NOTE | 2017-08-21 | NUR ---
GAME DESIGNER/CREATIVE DIRECTOR: NOTED WT 300CC RESIDUAL. WILL HOLD GTF AT THIS TIME.
--- NOTE | 2017-08-21 02:00 | NUR ---
RAILWAY ENGINEER: GT RESIDUAL STILL AT 300CC. WILL CONTINUE TO HOLD FEEDING.
[2017-08-21] MEDS: IPRATROPIUM NEB FS 0.5 MG/2.5 ML AMPUL.NEB NEB SCH ×6 (03:14→23:57)
[2017-08-21] MEDS: ALBUTEROL HALF STRENGTH 1.25 MG/3 ML VIAL.NEB NEB SCH ×6 (03:14→23:57)
[2017-08-21] MEDS: LORAZEPAM INJ 2 MG/ML VIAL IV PRN ×3 (03:47→18:55)
--- NOTE | 2017-08-21 04:30 | NUR ---
QUALITY ASSURANCE MONITOR BODY: REASSESSED AFTER GIVEN ATIVAN WT MINIMAL EFFECT. STILL NOTED WT INCREASED RR IN THE 30s BUT BP IS NOW IMPROVED. WILL GIVE PT MORE TIME HE WAS JUST GIVEN BED BATH AND TOLERATED FAIRLY. WILL CONTINUE TO HOLD GT FEEDING RESIDUAL IS STILL HIGH AT 200CC.
[2017-08-21] MEDS: METOCLOPRAMIDE HCL 10 MG/2 ML VIAL IV SCH ×3 (04:59→21:22)
[2017-08-21 05:37] LABS: CALCIUM, SERUM 8.1 mg/dL (8.5-10.1); CARBON DIOXIDE 34 mmol/L (21-32); CHLORIDE 104 mmol/L (98-107); CREATININE 1.1 mg/dL (0.6-1.3); GLUCOSE 93 mg/dL (74-106); MAGNESIUM 2.1 mg/dL (1.8-2.4); PHOSPHORUS 2.5 mg/dL (2.5-4.9); POTASSIUM 5.2 mmol/L (3.5-5.1); SODIUM SERUM 139 mmol/L (136-145); UREA NITROGEN, BLOOD 30 mg/dL (7-18)
[2017-08-21 05:40] LABS: BASOPHILS % (AUTO) 0.2 % (0.0-2.0); EOSINOPHILS # (AUTO) 0.1 /CMM (0.0-0.7); EOSINOPHILS % (AUTO) 1.4 % (0.0-6.0); HEMATOCRIT 22 % (39-51); HEMOGLOBIN 7.5 g/dL (13.5-17.5); LYMPHOCYTES # (AUTO) 0.5 /CMM (0.8-4.8); LYMPHOCYTES % (AUTO) 5.3 % (20.0-44.0); MEAN CORPUSCULAR HEMOGLOBIN 29 PG (26.0-33.0); MEAN CORPUSCULAR HGB CONC 34 g/dl (31.0-36.0); MEAN CORPUSCULAR VOLUME 86 fL (80-96); MONOCYTES # (AUTO) 0.5 /CMM (0.1-1.30); MONOCYTES % (AUTO) 5.1 % (2.0-12.0); NEUTROPHILS # (AUTO) 8.6 /CMM (1.8-8.9); PLATELET COUNT (AUTO) 104 /CMM (150-450); RDW COEFFICIENT OF VARIATION 16.4 (11.5-15.0); RED BLOOD CELL COUNT(AUTO) 2.57 MIL/uL (4.5-6.0); WHITE BLOOD COUNT (AUTO) 9.7 K/uL (4.3-11.0)
--- NOTE | 2017-08-21 06:01 | NUR ---
RT PT RECEIVED TRACHED NN [facility] VENT WITH NOTED SETTING. VENT PLUGGED IN TO RED OUTLET. ALARMS SET AND AUDIBLE. AMBU BAG AT HOB. NO SOB OR RESP DISTRESS NOTED ON SHIFT. HHN TX GIVEN ORDERED WITH NO ADVERSE REACTIONS. SX SMALL AMOUNT OF THICK YELLOW SECRETIONS PRN Addendum: 08/21/17 at 0604 by LUCIANA ALTMAN RT Amended: Links added.
--- NOTE | 2017-08-21 07:15 | NUR ---
FIELD CROP FARMER NOTES RECEIVED PATIENT OBTUNDED , OPENS EYES , NOT IN ACUTE DISTRESS , RESPIRATIONS EVEN AND UNLABORED WITH SPO2 OF 100% VIA MECHANICAL VENTILATOR SETTINGS ORDERED, TRACH OF DELONLEY # 8 C/D/I SUTURES IN PLACE , SR 85 ON BEDSIDE MONITOR , GT PATENT AND INTACT CLAMPED DUE TO HIGH RESIDUALS , CHECKED GT RESIDUALS NOTED WITH 50ML GREENISH OUTPUT , RE STARTED FIBERSOURCE @ 10ML/HR , FC DRAINING WELL VIA GRAVITY WITH CLEAR CLOUDY URINE , DARRIN MIDLINE WITH NS @ TKO INFUSING WELL , CLARKE # 18 PATENT AND INTACT SL , ALL NEEDS ATTENDED , BED ON LOW AND LOCKED POSITION , SIDE RAIL X2 ,CALL LIGHT WITHIN REACH , HOB @ 35 ,WILL CONTINUE TO MONITOR.
[2017-08-21 08:03] LABS: ABG BASE EXCESS 8.8 mmol/L; ABG OXYGEN SATURATION 92.8 % (92.0-98.5); ABG PCO2 51.6 mmHg (35.0-45.0); ABG PH 7.438 (7.350-7.450); ABG PO2 70.5 mmHg (75.0-100.0); COHb 0.3 % (0.5-1.5); MetHb 0.7 % (0.0-1.5); O2Hb 91.9 % (94.0-97.0); PEEP,BG 5 cm H2O; SITE, ABG Left Radial; VT, ABG 450 mL
[2017-08-21] MEDS: LACTOBACILLUS RHAMNOSUS GG 1 EACH CAP.SPRINK PO SCH ×2 (08:04→17:16)
[2017-08-21] MEDS: Z GUARD REMEDY 2 OZ OINT TP SCH (08:04)
[2017-08-21] MEDS: MEROPENEM 500 MG in IV NS 0.9% 50 ML IV SCH (08:04)
[2017-08-21] MEDS: ERGOCALCIFEROL (VITAMIN D 2) 50,000 UNIT CAPSULE GT SCH (08:04)
[2017-08-21] MEDS: AMANTADINE HCL 100 MG CAPSULE GT SCH ×2 (08:04→17:17)
--- NOTE | 2017-08-21 08:50 | NUR ---
FILER REPAIRER NOTES SEEN AND EVALUATED BY DR GONZALEZ ,DISCUSSED LABS , ABG AND CHEST XRAY AT THIS TIME , V/S STABLE , AFEBRILE , RR OF 26 , TOLERATING CURRENT VENT SETTINGS WITH SPO2 OF 100% , PT HAS 300 ML RESIDUALS @ 0000 , PER MD ORDER ABDOMINAL KUB AND CHANGE TV TO 500 . ORDERS CARRIED OUT
[2017-08-21] MEDS: MORPHINE SULFATE INJ 4 MG/ML DISP.SYRIN IV PRN ×2 (09:53→12:31)
--- NOTE | 2017-08-21 10:55 | NUR ---
ALLOY WEIGHER NOTES RELAYED KUB OF ABDOMEN RESULT TO DR GONZALEZ , RECEIVED ORDERS FOR DULCOLAX SUPPOSITORY Q12 PRN AND COLACE 100MG BID SCHEDULED . ORDERS CARRIED OUT
[2017-08-21] MEDS ORDERED: BISACODYL SUPP (10 MG) 10 MG/SUPP.RECT SUPP.RECT RC PRN (11:00)
[2017-08-21] MEDS: VANCOMYCIN 0.75 GM in IV D5W 250 ML IV SCH (12:09)
[2017-08-21] MEDS: FIBERSOURCE HN 1,000 ML BOTTLE GT PRN (12:09)
--- NOTE | 2017-08-21 13:30 | NUR ---
WINDOW DRAPER NOTES SEEN AND EVALUATED BY DR CAM , DISCUSSED PT LABS , CHEST XRAY , , KUV ABDOMEN AND ABG RESULT , PT STILL TACHYPNEIC 33-35 CPM , ATIVAN AND MORPHINE PRN MEDICATIONS GIVEN , @ 0000 PT HAS 300 ML GASTRIC RESIDUALS FROM GT FEEDING , CURRENTLY PT IS 2 FIBERSOURCE @ 20ML/HR TOLERATING WELL , F/U FOR K LEVEL 5.2 , AWARE .
--- NOTE | 2017-08-21 13:31 | NUR ---
CASEY SAW OPERATOR NOTES VERIFIED WITH DR CAM IF XARELTO CAN BE RESTARTED DUE TO LOW H/H 7. WITH NO ACTIVE BLEEDING NOTED , PER MD HIGGINBOTHAM TO GIVE XARELTO , HE WILL START PT ON FERRLECIT IV
[2017-08-21] MEDS: DOCUSATE SODIUM LIQ 100 MG/10 ML UDC GT SCH ×2 (14:59→17:17)
[2017-08-21] MEDS: SOD FERRIC GLUC 125 MG in IV NS 0.9% 100 ML IV SCH (15:09)
[2017-08-21] MEDS ORDERED: DOCUSATE SODIUM 100 MG CAPSULE PO SCH (17:00)
[2017-08-21] MEDS: IV NS 0.9% 250 ML IV PRN (17:18)
[2017-08-21] MEDS: RIVAROXABAN 15 MG TABLET PO SCH (17:18)
--- NOTE | 2017-08-21 18:15 | NUR ---
RT END OF THE SHIFT REPORT, PT. 76 Y OLD MALE REMAIN TRACHED SHILEY # 8 ON [facility]. VENT. WITH NOTED SETTINGS, ALARMS ARE SET AND FUNCTIONAL. EQUAL CHEST RISE NOTED, BILATERALLY RALES/RHONCHI. SUX'D FOR MINIMAL/MODERATE YELLOWISH SECRETIONS. TX'S GIVEN INLINE AND NO ADVERSE REACTION NOTED. NO DISTRESS NOTED T/O DAY AND PT. REMAIN STABLE. CHANGES T/O SHIFT PER DR. GONZALEZ FOR VENT VENT PLUGGED INTO RED OUTLET. CONTINUE FOR MONITOR AND REPORT WILL PASS TO PM SHIFT. Addendum: 08/21/17 at 1817 by MO DODGE RT Amended: Links added.
--- NOTE | 2017-08-21 19:20 | NUR ---
PHOTO TUBE ASSEMBLER INITIAL NOTE RECEIVED PT FROM BLAKE JOYNER. PT IN BED. TRACHED TODAY, SEDATED ON PROPOFOL. TOLERATING CURRENT VENT SETTINGS. LUNG SOUNDS RHONCHI. BOWEL SOUNDS PRESENT. GT INTACT WITH FEEDING RUNNING. NO RESIDUAL NOTED. REPOSITIONED FOR COMFORT. BED IN LOW LOCKED POSITION. CALL LIGHT WITHIN REACH. WILL CONTINUE TO MONITOR.
[2017-08-21] MEDS: CARBIDOPA/LEV CR 50/200 MG 1 UDTAB.SA GT SCH (21:22)
[2017-08-22] VITALS (56 sets, daily range): BP systolic 85–160; BP diastolic 38–72
--- NOTE | 2017-08-22 | NUR ---
HOT METAL MIXER OPERATOR PT CLEANED AND REPOSITIONED. SACRAL AREA CLEANSED AND MEPILEX APPLIED. LEBLANC DRAINING URINE. PT TOLERATING VENT SETTINGS. WILL CONTINUE TO MONITOR.
[2017-08-22] MEDS: MORPHINE SULFATE INJ 4 MG/ML DISP.SYRIN IV PRN ×2 (00:31→13:34)
[2017-08-22] MEDS: IPRATROPIUM NEB FS 0.5 MG/2.5 ML AMPUL.NEB NEB SCH ×6 (03:24→23:35)
[2017-08-22] MEDS: ALBUTEROL HALF STRENGTH 1.25 MG/3 ML VIAL.NEB NEB SCH ×6 (03:25→23:36)
[2017-08-22] MEDS: LORAZEPAM INJ 2 MG/ML VIAL IV PRN (03:27)
[2017-08-22] MEDS: METOCLOPRAMIDE HCL 10 MG/2 ML VIAL IV SCH ×3 (05:12→21:14)
[2017-08-22 05:21] LABS: EOSINOPHILS # (AUTO) 0.1 /CMM (0.0-0.7); EOSINOPHILS % (AUTO) 0.5 % (0.0-6.0); HEMATOCRIT 23 % (39-51); HEMOGLOBIN 7.7 g/dL (13.5-17.5); LYMPHOCYTES # (AUTO) 0.4 /CMM (0.8-4.8); LYMPHOCYTES % (AUTO) 2.9 % (20.0-44.0); MEAN CORPUSCULAR HEMOGLOBIN 29 PG (26.0-33.0); MEAN CORPUSCULAR HGB CONC 34 g/dl (31.0-36.0); MEAN CORPUSCULAR VOLUME 86 fL (80-96); MONOCYTES # (AUTO) 0.8 /CMM (0.1-1.30); MONOCYTES % (AUTO) 5.7 % (2.0-12.0); NEUTROPHILS # (AUTO) 12.5 /CMM (1.8-8.9); NEUTROPHILS % (AUTO) 90.9 % (43.0-81.0); PLATELET COUNT (AUTO) 131 /CMM (150-450); RDW COEFFICIENT OF VARIATION 16.4 (11.5-15.0); RED BLOOD CELL COUNT(AUTO) 2.67 MIL/uL (4.5-6.0); WHITE BLOOD COUNT (AUTO) 13.8 K/uL (4.3-11.0)
--- NOTE | 2017-08-22 05:34 | NUR ---
RT PT RECEIVED TRACHED ON [facility] VENT WITH NOTED SETTING. VENT PLUGGED IN TO RED OUTLET. ALARMS SET AND AUDIBLE. AMBU BAG AT [facility]. NO SOB OR RESP DISTRESS NOTED ON SHIFT. SX SMALL AMOUNT OF THIN CLEAR SECRETIONS. Addendum: 08/22/17 at 0535 by LUCIANA ALTMAN RT Amended: Links added.
[2017-08-22 05:41] LABS: CALCIUM, SERUM 8.5 mg/dL (8.5-10.1); CARBON DIOXIDE 35 mmol/L (21-32); CHLORIDE 105 mmol/L (98-107); CREATININE 1.2 mg/dL (0.6-1.3); GLUCOSE 123 mg/dL (74-106); POTASSIUM 4.9 mmol/L (3.5-5.1); SODIUM SERUM 141 mmol/L (136-145); UREA NITROGEN, BLOOD 32 mg/dL (7-18)
--- NOTE | 2017-08-22 07:30 | NUR ---
RN NOTES RECEIVED PT RESTING IN BED. S/P TRACHEOSTOMY PLACEMENT ON 08/18. ON [facility] VENT SETTINGS PRESCRIBED. SUCTIONED FOR AIRWAY CLEARANCE. SR ON SOLE TACKER. LUNG SOUNDS RHONCHI. BOWEL SOUNDS PRESENT. ONGOING GTF FIBERSOURCE@40ML/HR, NOTED WITH 20ML RESDIUAL NOTED. REPOSITIONED FOR COMFORT. PT VERY CONTRACTED, HEAD ALWAYS LEANING ON LEFT SIDE. BED IN LOW LOCKED POSITION. CALL LIGHT WITHIN REACH. WILL CONTINUE TO MONITOR.
--- NOTE | 2017-08-22 08:22 | NUR ---
WOUND CARE CONSULT WOUND CONSULT RECEIVED. PATIENT SEEN AND PATIENT PRESENTS WITH AN OPEN DTI IN EVOLUTION TO SACRAL REGION, LEFT EARLOBE DTI WHICH IS INTACT, AND A RIGHT MEDIAL DORSAL FOOT OPEN WOUND. PLEASE SEE EXPRESSIVE THERAPIST ASSESSMENT IN [facility] FOR TODAY. TREATMENT RECOMMENDATIONS MADE AND MD NOTIFIED WITH ORDERS FOR TREATMENT RECEIVED. ALL DISCUSSED WITH NURSING STAFF AT THE BEDSIDE. ALL PRESSURE ULCER PREVENTION MEASURES NOTED TO BE IN PLACE AT THIS TIME. PATIENT WITH MULTIPLE CO-MORBIDITIES INCLUDING VERY BONY, VERY THIN, PATIENT WITH HIS NECK TURNED TO THE LEFT SIDE WITH STIFFNESS NOTED. PATIENT NOW WITH TRACH TO VENT AND RECEIVING TUBE FEEDINGS WITH ON AND OFF TOLERATION OF THE FEEDINGS. PATIENT WITH QUYEN AT 10. WILL CONTINUE TO MONITOR. CONTINUE ALL PRESSURE ULCER PREVENTION MEASURES CURRENTLY IN PLACE. PATIENT ON ISOFLEX LOW AIRLOSS SPECIALTY BED FOR SKIN MANAGEMENT AND TREATMENT. Addendum: 08/22/17 at 0833 by FLORA HOOPER WNDNU Amended: Links added.
[2017-08-22] MEDS: LACTOBACILLUS RHAMNOSUS GG 1 EACH CAP.SPRINK PO SCH ×2 (08:25→17:08)
[2017-08-22] MEDS: DOCUSATE SODIUM LIQ 100 MG/10 ML UDC GT SCH ×2 (08:25→17:08)
[2017-08-22] MEDS: AMANTADINE HCL 100 MG CAPSULE GT SCH ×2 (08:25→17:09)
[2017-08-22] MEDS: Z GUARD REMEDY 2 OZ OINT TP SCH (08:26)
[2017-08-22] MEDS ORDERED: HYDROGEL DRESSING 90 GM TUBE TP PRN (08:30)
[2017-08-22] MEDS: HYDROGEL DRESSING 90 GM TUBE TP SCH (08:32)
[2017-08-22 08:45] LABS: ABG OXYGEN SATURATION 81.8 % (92.0-98.5); ABG PCO2 49.6 mmHg (35.0-45.0); ABG PH 7.486 (7.350-7.450); ABG PO2 45.2 mmHg (75.0-100.0); AaDO2 255.5 mmHg; COHb 0.3 % (0.5-1.5); O2Hb 80.7 % (94.0-97.0); PEEP,BG 5 cm H2O; SITE, ABG Right Radial; VENT MODE, BG AC 18 500 50% +5; VT, ABG 500 mL
--- NOTE | 2017-08-22 08:49 | NUR ---
RN NOTES ABG DONE, DR GONZALEZ AWARE OFF RESULTS. VENT SETTINGS CHANGES ORDERED BY MD. FIO2: 60% AND PEEP OF 10. RT AT BEDSIDE
[2017-08-22] MEDS: NEOMY SULF/BACITRAC ZN/POLY 15 GM TUBE TP SCH ×2 (09:00→18:51)
--- NOTE | 2017-08-22 09:04 | NUR ---
RN NOTES PT WAS SEEN AND EVALUATED BY DR GONZALEZ AT BEDSIDE. VENT SETTINGS CHANGED, PT SATURATING 88% AT THIS TIME. PER DR BLOOD PUT PT ON DIPRIVAN SEDATION AND INCREASE FIO2 TO 100%. RT NOTIFIED.
[2017-08-22] MEDS ORDERED: PROPOFOL 100 ML IV PRN (09:30)
--- NOTE | 2017-08-22 10:31 | NUR ---
RT NOTE PT FIO2 INCREASED TO 60%. PT PEEP INCREASED TO 10. PER MD PELEG ORDER. Addendum: 08/22/17 at 1032 by JACE VALDEZ RT Amended: Links added.
--- NOTE | 2017-08-22 10:44 | NUR ---
RN NOTES DR CAM AT BEDSIDE, PT WAS SEEN AND EVALUATED, LABS AND VS DISCUSSED WITH MD. WBC 13.8, H/H 7.7/23. SEEN BY WOUND CARE NURSE THIS MORNING. DR CAM NOTIFIED OF VENT CHANGES AND WILL BE SEDATED WITH PROPOFOL ORDERED BY DR GONZALEZ. NO NEW ORDERS RECEIVED AT THIS TIME.
[2017-08-22] MEDS: PROPOFOL 10MG/ML 50ML 50 ML IV PRN ×4 (11:26→23:13)
[2017-08-22] MEDS: SOD FERRIC GLUC 125 MG in IV NS 0.9% 100 ML IV SCH (16:28)
[2017-08-22] MEDS: FIBERSOURCE HN 1,000 ML BOTTLE GT PRN (16:33)
[2017-08-22] MEDS: RIVAROXABAN 15 MG TABLET PO SCH (17:09)
--- NOTE | 2017-08-22 18:00 | NUR ---
RN NOTES PT RESTING IN BED COMFORTABLY, ON SEDATION PROPOFOL@20MCG/KG/MIN TOLERATED WELL. TOLERATING CURRENT [facility] VENT SETTINGS: AC 18 TV 500 FIO2 75% PEEP 10. NO SOB RR: 23 AT THIS TIME. NO ACUTE DISCTRESS/DISCOMFORT. PT APPEARS CALM AND COMFORTABLE. PM CARE PROVIDED. REPOSITUIONED TOELRATED. NOTED WITH DECREASING OUTPUT, MD AWARE. WILL CONT TO MONITOR. PT AFEBRILE AT THIS TIME.
--- NOTE | 2017-08-22 18:30 | NUR ---
PT TRACHED 0N MECH VENT WITH NOTED SETTING. VENT PLUGGED IN TO RED OUTLET. ALARMS SET AND AUDIBLE. AMBU BAG AT HOB. NO SOB OR RESP DISTRESS NOTED ON SHIFT. HHN TX GIVEN ORDERED WITH NO ADVERSE REACTIONS. SX SMALL AMOUNT OF THICK YELLOW SECRETIONS PRN Addendum: 08/22/17 at 1831 by UNRULY SÁNCHEZ RT Amended: Links added.
--- NOTE | 2017-08-22 19:30 | NUR ---
COMMUTER TRAIN OPERATOR INITIAL NOTE RECEIVED REPORT FROM ZOË JOYNER. PT IN BED, TRACHED AND SEDATED. LUNG SOUNDS RHONCHI. TOLERATING CURRENT VENT SETTINGS. BOWEL SOUNDS PRESENT, WITH PEG IN PLACE AND TOLERATING FEEDINGS. PULSES PRESENT. IV PATENT AND INTACT. PT IS CONTRACTED AND REQUIRES FREQUENT REPOSITIONING. REPOSITIONED FOR COMFORT. WILL CONTINUE TO MONITOR.
[2017-08-22] MEDS: CARBIDOPA/LEV CR 50/200 MG 1 UDTAB.SA GT SCH (21:36)
[2017-08-23] VITALS (45 sets, daily range): BP systolic 98–164; BP diastolic 37–78
[2017-08-23] MEDS: PROPOFOL 10MG/ML 50ML 50 ML IV PRN ×4 (03:07→21:32)
[2017-08-23] MEDS: IPRATROPIUM NEB FS 0.5 MG/2.5 ML AMPUL.NEB NEB SCH ×6 (03:33→23:49)
[2017-08-23] MEDS: ALBUTEROL HALF STRENGTH 1.25 MG/3 ML VIAL.NEB NEB SCH ×7 (03:33→23:49)
[2017-08-23] MEDS: METOCLOPRAMIDE HCL 10 MG/2 ML VIAL IV SCH ×3 (05:06→21:30)
--- NOTE | 2017-08-23 06:21 | NUR ---
PT RECEIVED TRACH[facility] AND [facility] WITH NOTED SETTING. VENT PLUGGED IN TO RED OUTLET. ALARMS SET AND AUDIBLE. AMBU BAG AT HOB. NO SOB OR RESP DISTRESS NOTED ON SHIFT. HHN TX GIVEN ORDERED WITH NO ADVERSE REACTIONS. SX SMALL AMOUNT OF THICK YELLOW SECRETIONS PRN
[2017-08-23 07:27] LABS: CARBON DIOXIDE 35 mmol/L (21-32); CHLORIDE 105 mmol/L (98-107); CREATININE 1.7 mg/dL (0.6-1.3); GLUCOSE 103 mg/dL (74-106); POTASSIUM 5.2 mmol/L (3.5-5.1); SODIUM SERUM 141 mmol/L (136-145); UREA NITROGEN, BLOOD 45 mg/dL (7-18)
--- NOTE | 2017-08-23 07:30 | NUR ---
ASSEMBLY DETAILER RECEIVED PATIENT AWAKE, OPENS EYE SPONTANEOUSLY ON SEDATION AT 25 MCGS AFEBRILE ON MECHANICAL VENTILATORY SUPPORT SATURATING WELL ON CONTINUOUS FEEDING OF FIBERSOURCE AT 40 MCGS, TOLERATED WELL CONTRACTED EXTREMITIES, PLACED TROCHANTERS TO SUPPORT AREAS MONITORED CLOSELY
[2017-08-23 07:32] LABS: BASOPHILS % (AUTO) 0.1 % (0.0-2.0); EOSINOPHILS # (AUTO) 0.4 /CMM (0.0-0.7); EOSINOPHILS % (AUTO) 3.3 % (0.0-6.0); LYMPHOCYTES # (AUTO) 0.6 /CMM (0.8-4.8); MEAN CORPUSCULAR HEMOGLOBIN 28 PG (26.0-33.0); MEAN CORPUSCULAR HGB CONC 32 g/dl (31.0-36.0); MEAN CORPUSCULAR VOLUME 88 fL (80-96); MONOCYTES # (AUTO) 0.7 /CMM (0.1-1.30); NEUTROPHILS # (AUTO) 10.7 /CMM (1.8-8.9); NEUTROPHILS % (AUTO) 85.6 % (43.0-81.0); PLATELET COUNT (AUTO) 125 /CMM (150-450); RED BLOOD CELL COUNT(AUTO) 2.25 MIL/uL (4.5-6.0); WHITE BLOOD COUNT (AUTO) 12.5 K/uL (4.3-11.0)
[2017-08-23 07:42] LABS: HEMATOCRIT 20 % (39-51); HEMOGLOBIN 6.4 g/dL (13.5-17.5)
--- NOTE | 2017-08-23 07:42 | NUR ---
PT. RECEIVED ON VENT SUPPORT VIA TRACH WITH PARAMETERS BELLOW SET ORDER: AC 18 VT 5OOML FIO2 100% PEEP +10 B/S CLEAR BILATERAL. MECH VENT PLUGGED INTO RED OUTLET WITH ALARMS ON AND FUNCTIONING. PHUC @ HOB. Addendum: 08/23/17 at 0845 by LIZETH PEREZ RT Amended: Links added.
[2017-08-23] MEDS: PROSOURCE / PROSTAT (PYXIS) 30 ML UDC GT SCH (08:34)
[2017-08-23] MEDS: AMANTADINE HCL 100 MG CAPSULE GT SCH ×2 (08:34→17:11)
[2017-08-23] MEDS: DOCUSATE SODIUM LIQ 100 MG/10 ML UDC GT SCH ×2 (08:34→17:11)
[2017-08-23] MEDS: LACTOBACILLUS RHAMNOSUS GG 1 EACH CAP.SPRINK PO SCH ×2 (08:34→17:11)
[2017-08-23] MEDS: HYDROGEL DRESSING 90 GM TUBE TP SCH (08:35)
[2017-08-23 08:36] LABS: ABG BASE EXCESS 8.4 mmol/L; ABG PCO2 49.1 mmHg (35.0-45.0); ABG PH 7.449 (7.350-7.450); ABG PO2 337.7 mmHg (75.0-100.0); AaDO2 326.2 mmHg; COHb 0.3 % (0.5-1.5); O2Hb 97.7 % (94.0-97.0); PEEP,BG 10 cm H2O; SITE, ABG Left Radial; VT, ABG 500 mL
[2017-08-23] MEDS: Z GUARD REMEDY 2 OZ OINT TP SCH (08:36)
--- NOTE | 2017-08-23 08:45 | NUR ---
O2 TITRATION BELLOW ORDER: FIO2 DECREASED FROM 100% TO 40% DUE TO PAO2 337. Addendum: 08/23/17 at 0847 by LIZETH PEREZ RT Amended: Links added.
[2017-08-23 09:21] LABS: LYMPHOCYTES % (MANUAL) 4 % (16-48); MONOCYTES % (MANUAL) 3 % (0-11.0); NEUTROPHILS % (MANUAL) 93 (42-76)
--- NOTE | 2017-08-23 09:24 | NUR ---
FIO2 INCREASED FROM 40% TO 60% DUE TO SPO2 86% Addendum: 08/23/17 at 0924 by LIZETH PEREZ RT Amended: Links added.
[2017-08-23 09:54] LABS: ALANINE AMINOTRANSFERASE 15 U/L (12-78); ALKALINE PHOSPHATASE 74 U/L (46-116); ASPARTATE AMINOTRANSFERASE 45 U/L (15-37); BILIRUBIN,DIRECT 0.2 mg/dL (0.0-0.2); BILIRUBIN,TOTAL 0.4 mg/dL (0.2-1.0); TOTAL PROTEIN, SERUM 4.6 g/dL (6.4-8.2)
[2017-08-23 10:51] LABS: HEMOGLOBIN 6.3 g/dL (13.5-17.5)
--- NOTE | 2017-08-23 11:20 | NUR ---
DECREASED PEEP FROM 10 TO 5 cmH2O. Addendum: 08/23/17 at 1121 by LIZETH PEREZ RT Amended: Links added.
[2017-08-23] MEDS: SOD FERRIC GLUC 125 MG in IV NS 0.9% 100 ML IV SCH (14:58)
[2017-08-23] MEDS: RIVAROXABAN 15 MG TABLET PO SCH (17:10)
--- NOTE | 2017-08-23 18:46 | NUR ---
CREDIT REPORTING CLERK LARGE BLOOD CLOT FROM HIS NOSE NOTED 2 CM APPROXIMATELY NO OTHER BLOOD CLOTS SEEN BLOOD PRESSURE WNL MONITORED CLOSELY ENDORSED TO NOD
--- NOTE | 2017-08-23 19:30 | NUR ---
PATIENT OBSERVATION ASSISTANT RCD PT W/DX SEPSIS; PT IS DNR; SEDATED ON DIPRIVAN AT 20 MCG/KG/MIN. NSR ON MONITOR. ON LEVOPHED FOR BP SUPPORT. MULTIPLE SKIN ISSUES. INTUBATED 7.5 @ 24 W/VENT SETTINGS AC 16 450 455; THIN WHITE SECRETIONS.
--- NOTE | 2017-08-23 19:30 | NUR ---
INTEL ANALYST RCD PT W/DX RESP FAIL S/P TRACH 08/20; PT IS ON DIPRIVAN AT 25 MCG/KG/MIN FOR INCREASED RESPIRATIONS. NSR ON MONITOR. LEBLANC CATHETER DRAINING ADEQUATE AMOUNT OF YELLOW URINE.
[2017-08-23] MEDS: IV NS 0.9% 1,000 ML IV PRN (20:00)
[2017-08-23] MEDS: CARBIDOPA/LEV CR 50/200 MG 1 UDTAB.SA GT SCH (21:30)
[2017-08-24] VITALS (34 sets, daily range): BP systolic 109–172; BP diastolic 39–70
--- NOTE | 2017-08-24 | NUR ---
LEATHER ETCHER TITRATED LEVOPHED OFF. CONTINUE TO MONITOR.
[2017-08-24] MEDS: FIBERSOURCE HN 1,000 ML BOTTLE GT PRN (00:20)
[2017-08-24] MEDS: PROPOFOL 10MG/ML 50ML 50 ML IV PRN ×7 (02:10→23:58)
[2017-08-24] MEDS: LORAZEPAM INJ 2 MG/ML VIAL IV PRN (02:42)
[2017-08-24] MEDS: ALBUTEROL HALF STRENGTH 1.25 MG/3 ML VIAL.NEB NEB SCH ×6 (04:14→23:47)
[2017-08-24] MEDS: IPRATROPIUM NEB FS 0.5 MG/2.5 ML AMPUL.NEB NEB SCH ×6 (04:14→23:47)
[2017-08-24] MEDS: METOCLOPRAMIDE HCL 10 MG/2 ML VIAL IV SCH ×3 (04:56→21:25)
[2017-08-24 05:24] LABS: BASOPHILS % (AUTO) 0.1 % (0.0-2.0); EOSINOPHILS # (AUTO) 0.2 /CMM (0.0-0.7); EOSINOPHILS % (AUTO) 1.5 % (0.0-6.0); HEMATOCRIT 25 % (39-51); HEMOGLOBIN 8.4 g/dL (13.5-17.5); LYMPHOCYTES # (AUTO) 0.3 /CMM (0.8-4.8); LYMPHOCYTES % (AUTO) 2.6 % (20.0-44.0); MEAN CORPUSCULAR HEMOGLOBIN 30 PG (26.0-33.0); MEAN CORPUSCULAR HGB CONC 33 g/dl (31.0-36.0); MEAN CORPUSCULAR VOLUME 89 fL (80-96); MONOCYTES # (AUTO) 0.4 /CMM (0.1-1.30); MONOCYTES % (AUTO) 3.5 % (2.0-12.0); NEUTROPHILS # (AUTO) 11.8 /CMM (1.8-8.9); NEUTROPHILS % (AUTO) 92.3 % (43.0-81.0); PLATELET COUNT (AUTO) 119 /CMM (150-450); RDW COEFFICIENT OF VARIATION 16.5 (11.5-15.0); RED BLOOD CELL COUNT(AUTO) 2.83 MIL/uL (4.5-6.0); WHITE BLOOD COUNT (AUTO) 12.8 K/uL (4.3-11.0)
[2017-08-24 05:45] LABS: CALCIUM, SERUM 9.5 mg/dL (8.5-10.1); CARBON DIOXIDE 34 mmol/L (21-32); CHLORIDE 107 mmol/L (98-107); CREATININE 1.6 mg/dL (0.6-1.3); GLUCOSE 102 mg/dL (74-106); MAGNESIUM 2.2 mg/dL (1.8-2.4); POTASSIUM 5.5 mmol/L (3.5-5.1); SODIUM SERUM 141 mmol/L (136-145); UREA NITROGEN, BLOOD 52 mg/dL (7-18)
--- NOTE | 2017-08-24 06:00 | NUR ---
PRECISION ASSEMBLER BENCH FI O2 INCREASED TO 80% BY RT.
--- NOTE | 2017-08-24 07:05 | NUR ---
GRAPHIC MANAGER PT REMAINED ON DIPRIVAN AT 30 MCG/KG/MIN; ATIVAN GIVEN PRN. PT CONTINUES TO BE TACHYPNEIC.
--- NOTE | 2017-08-24 07:30 | NUR ---
EXPERIMENTAL MECHANIC OUTBOARD MOTORS RECEIVED PATIENT ON MECHANICAL VENTILATORY SUPPORT SATURATING AT 95% FI02 -60% AFEBRILE ON DIPRIVAN AT 30 MCGS WITH ON GOING NS @80 ML/HR FEEDING TOLERATED MONITORED CLOSELY LEBLANC CATHETER DRAINING TO YELLOWISH URINE MODERATE IN AMOUNT
[2017-08-24] MEDS: PROSOURCE / PROSTAT (PYXIS) 30 ML UDC GT SCH (09:14)
[2017-08-24] MEDS: AMANTADINE HCL 100 MG CAPSULE GT SCH ×2 (09:15→17:21)
[2017-08-24] MEDS: LACTOBACILLUS RHAMNOSUS GG 1 EACH CAP.SPRINK PO SCH ×2 (09:15→17:21)
[2017-08-24] MEDS: DOCUSATE SODIUM LIQ 100 MG/10 ML UDC GT SCH ×2 (09:15→17:21)
[2017-08-24] MEDS: NEOMY SULF/BACITRAC ZN/POLY 15 GM TUBE TP SCH (09:15)
[2017-08-24] MEDS: Z GUARD REMEDY 2 OZ OINT TP SCH (09:16)
[2017-08-24] MEDS: HYDROGEL DRESSING 90 GM TUBE TP SCH (09:16)
[2017-08-24 09:43] LABS: ABG BASE EXCESS 9.7 mmol/L; ABG PCO2 63.7 mmHg (35.0-45.0); ABG PH 7.374 (7.350-7.450); ABG PO2 93.2 mmHg (75.0-100.0); AaDO2 264.5 mmHg; COHb 0.3 % (0.5-1.5); MetHb 0.7 % (0.0-1.5); PEEP,BG 5 cm H2O; SITE, ABG Right Radial; VENT MODE, BG AC 18 500 +5 60%; VT, ABG 500 mL
[2017-08-24] MEDS: IV NS 0.9% 1,000 ML IV PRN (14:09)
[2017-08-24] MEDS: SOD FERRIC GLUC 125 MG in IV NS 0.9% 100 ML IV SCH (14:46)
--- NOTE | 2017-08-24 16:30 | NUR ---
FINISH OFF OPERATOR INITIAL NOTE RECEIVED REPORT FROM TAQUERIA JOYNER. PT IN BED, TRACHED ON VENT, SEDATED ON PROPOFOL 40MCG. VENT SETTINGS AC 18 TV 500 FIO2 60 PEEP 5. LUNG SOUNDS RHONCHI. BOWEL SOUNDS PRESENT WITH GT INTACT AND FEEDING RUNNING AT 40. IV PATENT AND INTACT. PULSES PRESENT. REPOSITIONED FOR COMFORT. WILL CONTINUE TO MONITOR.
[2017-08-24] MEDS: RIVAROXABAN 15 MG TABLET PO SCH (17:21)
[2017-08-24] MEDS: CARBIDOPA/LEV CR 50/200 MG 1 UDTAB.SA GT SCH (21:25)
[2017-08-25] VITALS (54 sets, daily range): BP systolic 86–155; BP diastolic 37–66
[2017-08-25] MEDS: PROPOFOL 10MG/ML 50ML 50 ML IV PRN ×10 (02:05→22:18)
[2017-08-25] MEDS: ALBUTEROL HALF STRENGTH 1.25 MG/3 ML VIAL.NEB NEB SCH ×5 (03:33→20:45)
[2017-08-25] MEDS: IPRATROPIUM NEB FS 0.5 MG/2.5 ML AMPUL.NEB NEB SCH ×5 (03:33→20:45)
[2017-08-25] MEDS: IV NS 0.9% 1,000 ML IV PRN ×2 (03:43→17:30)
[2017-08-25 05:03] LABS: EOSINOPHILS % (AUTO) 0.4 % (0.0-6.0); LYMPHOCYTES # (AUTO) 0.3 /CMM (0.8-4.8); LYMPHOCYTES % (AUTO) 2.8 % (20.0-44.0); MEAN CORPUSCULAR HEMOGLOBIN 29 PG (26.0-33.0); MEAN CORPUSCULAR HGB CONC 33 g/dl (31.0-36.0); MEAN CORPUSCULAR VOLUME 88 fL (80-96); MONOCYTES # (AUTO) 0.4 /CMM (0.1-1.30); MONOCYTES % (AUTO) 3.4 % (2.0-12.0); NEUTROPHILS # (AUTO) 10.1 /CMM (1.8-8.9); NEUTROPHILS % (AUTO) 93.4 % (43.0-81.0); PLATELET COUNT (AUTO) 103 /CMM (150-450); RDW COEFFICIENT OF VARIATION 17.6 (11.5-15.0); RED BLOOD CELL COUNT(AUTO) 2.27 MIL/uL (4.5-6.0); WHITE BLOOD COUNT (AUTO) 10.8 K/uL (4.3-11.0)
[2017-08-25] MEDS: METOCLOPRAMIDE HCL 10 MG/2 ML VIAL IV SCH ×3 (05:07→21:51)
[2017-08-25 05:20] LABS: CALCIUM, SERUM 8.7 mg/dL (8.5-10.1); CARBON DIOXIDE 32 mmol/L (21-32); CHLORIDE 111 mmol/L (98-107); CREATININE 1.7 mg/dL (0.6-1.3); GLUCOSE 139 mg/dL (74-106); POTASSIUM 6.1 mmol/L (3.5-5.1); SODIUM SERUM 146 mmol/L (136-145); UREA NITROGEN, BLOOD 55 mg/dL (7-18)
[2017-08-25 05:29] LABS: HEMATOCRIT 20 % (39-51); HEMOGLOBIN 6.6 g/dL (13.5-17.5)
[2017-08-25 05:46] LABS: EOSINOPHILS % (MANUAL) 1 % (0-4); LYMPHOCYTES % (MANUAL) 2 % (16-48); MONOCYTES % (MANUAL) 3 % (0-11.0); NEUTROPHILS % (MANUAL) 94 (42-76)
--- NOTE | 2017-08-25 07:00 | NUR ---
ICU INITIAL NOTE RECEIVED REPORT FROM AR SHAW, PT WAS RECEIVED SEDATED/AGITATED, UNABLE TO FOLLOW COMMANDS, UNABLE TO MOVE EXTREMITIES, UNABLE TO TRACK, PT HAS TRACH SHILEY #8 AC 18 TV 500 FIO2 60% PEEP 5, SATING WELL, NO S/S OF RESP.DISTRESS OR SOB NOTED AT THIS TIME, BREATHING IS LABORED AND EVEN, PT IS ON BEDSIDE MONITOR SHOWING SR IN 80'S, NO S/S OF CHEST PAIN OR DISCOMFORT AT THIS TIME, PT IS NOTED WITH MULTIPLE SKIN ISSUES, WOUND CARE ACK AND WILL BE CARRIED OUT, PT IS EDEMATOUS, PT HAS GTUBE, INTACT/PATENT , FLUSHING WELL, RUNNING FIBERSOURCE @ 40ML/HR, TOLERATING WELL, NO RESIDUALS NOTED AT THIS TIME, PT HAS F/C DRAINING URINE TO GRAVITY, PT HAS DARRIN MIDLINE, C/D/I/PATENT, FLUSHING WELL, RUNNING NS @80ML/HR, DIPRIVAN @ 40MCG/MIN, NO S/S OF INFECTION/ INFILTRATION NOTED AT THIS TIME, ALL SAFETY MEASURES IN PLACE AT ALL TIMES, CALL LIGHT WITHIN EASY REACH, WILL MONITOR PT CLOSELY FOR CHANGES
--- NOTE | 2017-08-25 07:10 | NUR ---
icu note- unable to offload chin and left head, pt is contracted in the forward position. applied, towels and mepilex.
--- NOTE | 2017-08-25 07:21 | NUR ---
PT. RECEIVED ON VENT SUPPORT VIA TRACH WITH PARAMETERS BELLOW SET PER MD ORDER: AC 18 VT 5OOML FIO2 60% PEEP +5 B/S CLEAR BILATERAL. Addendum: 08/25/17 at 1550 by LIZETH PEREZ RT Amended: Links added.
--- NOTE | 2017-08-25 08:00 | NUR ---
SEDATION VACATION- DIPRIVAN TITRATED PER PROTOCOL, PT IS UNABLE TO COMMANDS, UNABLE TO MOVE EXTREMITIES, PT UNABLE TO TRACK, ORAL CARE PROVIDED, DIPRIVAN WILL BE RESTARTED PRN FOR PT COMFORT.
[2017-08-25 08:34] LABS: ABG OXYGEN SATURATION 94.1 % (92.0-98.5); ABG PCO2 45.1 mmHg (35.0-45.0); ABG PO2 74.8 mmHg (75.0-100.0); AaDO2 303.4 mmHg; COHb 0.3 % (0.5-1.5); MetHb 0.9 % (0.0-1.5); PEEP,BG 5 cm H2O; SITE, ABG Left Radial; VT, ABG 500 mL
[2017-08-25] MEDS: PROSOURCE / PROSTAT (PYXIS) 30 ML UDC GT SCH (08:47)
[2017-08-25] MEDS: LACTOBACILLUS RHAMNOSUS GG 1 EACH CAP.SPRINK PO SCH ×2 (08:47→17:16)
[2017-08-25] MEDS: AMANTADINE HCL 100 MG CAPSULE GT SCH ×2 (08:47→17:16)
[2017-08-25] MEDS: DOCUSATE SODIUM LIQ 100 MG/10 ML UDC GT SCH ×2 (08:47→17:16)
[2017-08-25] MEDS: Z GUARD REMEDY 2 OZ OINT TP PRN (08:48)
[2017-08-25] MEDS: HYDROGEL DRESSING 90 GM TUBE TP SCH (08:48)
[2017-08-25] MEDS: NEOMY SULF/BACITRAC ZN/POLY 15 GM TUBE TP SCH (08:48)
[2017-08-25] MEDS: Z GUARD REMEDY 2 OZ OINT TP SCH (08:49)
--- NOTE | 2017-08-25 09:08 | NUR ---
ICU NOTE- DR. CHAVEZ MADE ROUNDS, AWARE OF ALL LABS AND RESULTS, RECEIVED ORDERS TO TRANSFUSE PT 2 UNITS PRBC, ORDER WILL BE ACK AND CARRIED OUT.
--- NOTE | 2017-08-25 09:25 | NUR ---
ICU NOTE- DR. GONZALEZ MADE ROUNDS, AWARE OF ALL LABS AND RESULTS, CHANGED MORPHINE ORDER TO 4MG Q1H PRN, ATIVAN 1MG Q1H, PRN, ORDERS INPUT, ACK AND WILL BE CARRIED OUT.
[2017-08-25] MEDS ORDERED: LORAZEPAM INJ 2 MG/ML VIAL IV PRN (09:30)
[2017-08-25] MEDS: MORPHINE SULFATE INJ 4 MG/ML DISP.SYRIN IV PRN ×2 (10:02→11:10)
--- NOTE | 2017-08-25 12:13 | NUR ---
icu note- transfusing 1 unit prbc at this time, vvs, will monitor closely for reaction
--- NOTE | 2017-08-25 14:22 | NUR ---
icu note- 1 unit prbc transfused, vvs, no reaction noted, pt remains afebile
[2017-08-25] MEDS: SOD FERRIC GLUC 125 MG in IV NS 0.9% 100 ML IV SCH (15:11)
--- NOTE | 2017-08-25 16:00 | NUR ---
ICU NOTE- PER MARIO MENDIOLA TO INCREASE DIPRIVAN TO 100MCG/MIN FOR PT COMFORT
[2017-08-25 16:57] LABS: HEMOGLOBIN 7.9 g/dL (13.5-17.5)
[2017-08-25] MEDS: RIVAROXABAN 15 MG TABLET PO SCH (17:16)
[2017-08-25] MEDS: FIBERSOURCE HN 1,000 ML BOTTLE GT PRN (17:30)
--- NOTE | 2017-08-25 19:30 | NUR ---
BUSH AND VINE FRUIT CROP FARMER INITIAL NOTE RECEIVED PT FROM DEON JOYNER. PT IN BED, TRACHED ON VENT, SETTINGS AC 18, TV 500, FIO2 60%, PEEP 5. SEDATED ON PROPOFOL AT 50MCG. RR 31. LUNG SOUNDS RHONCHI. BOWEL SOUNDS PRESENT, GT INTACT WITH FEEDING RUNNING AT 40 TOLERATING WELL. PULSES PRESENT. REPOSITIONED FOR COMFORT. RECEIVED 1 UNIT OF PRBC WITH DAY SHIFT, 1 UNIT OF PRBC AVAILABLE FOR TRANSFUSION. WILL CONTINUE TO CLOSELY MONITOR.
[2017-08-25] MEDS: CARBIDOPA/LEV CR 50/200 MG 1 UDTAB.SA GT SCH (21:51)
[2017-08-26] VITALS (74 sets, daily range): BP systolic 58–182; BP diastolic 19–79
[2017-08-26] MEDS: IPRATROPIUM NEB FS 0.5 MG/2.5 ML AMPUL.NEB NEB SCH ×7 (00:11→22:35)
[2017-08-26] MEDS: ALBUTEROL HALF STRENGTH 1.25 MG/3 ML VIAL.NEB NEB SCH ×7 (00:11→22:35)
[2017-08-26] MEDS: PROPOFOL 10MG/ML 50ML 50 ML IV PRN ×12 (00:50→23:23)
[2017-08-26] MEDS: METOCLOPRAMIDE HCL 10 MG/2 ML VIAL IV SCH ×3 (04:47→21:50)
[2017-08-26] MEDS: IV NS 0.9% 1,000 ML IV PRN ×2 (05:47→18:43)
--- NOTE | 2017-08-26 07:13 | NUR ---
WOUND CARE CONSULT PATIENT SEEN AND PATIENT PRESENTS WITH RIGHT AND LEFT CHIN DTI'S WHICH ARE NOTED TO BE INTACT. ALSO THE LEFT EARLOBE DTI CONTINUES TO BE INTACT. PLEASE SEE INTERIOR DESIGN COORDINATOR ASSESSMENT IN PCS FOR TODAY ALONG WITH ALL RECOMMENDATIONS. TREATMENT PLANS DISCUSSED WITH NURSING AT THE BEDSIDE. MD IN AGREEMENT WITH TREATMENT PLANS. PATIENT CONTINUES TO HAVE MULTIPLE CO-MORBIDITIES, PATIENT VERY DIFFICULT TO OFFLOAD DUE TO CONTRACTURES, PATIENT VERY BONY. FURTHER SKIN BREAKDOWN MAY CONTINUE TO BE UNAVOIDABLE. ALL PRESSURE ULCER PREVENTION MEASURES CONTINUE TO BE IN PLACE. WOUND CARE WILL CONTINUE TO MONITOR. Addendum: 08/26/17 at 0717 by FLORA HOOPER WNDNU Amended: Links added.
--- NOTE | 2017-08-26 08:00 | NUR ---
ICU/RN INITIAL NOTES,AM RECEIVED REPORT FROM NIGHT NURSE. PT SEDATED ON 50 MCG DIPRIVAN. PT ON VENT ORDERED BY MD VIA TRACH. NO ACUTE DISTRESS NOTED, HOWEVER PT IS TACHYPNEIC. IV FLUIDS INFUSING ORDERED. SINUS ON TELE. GTUBE FEEDING INFUSING ORDERED, TOLERATING WELL. LEBLANC IN PLACE, MINIMAL URINE OUTPUT NOTED. MIDLINE AND PIV'S PATENT AND INTACT, NO S/S OF INFECTION OR INFILTRATION NOTED. ALL NEEDS WILL BE ATTENDED TO, SAFETY MEASURES TAKEN, BED IN LOW POSITION, SIDE RAILS UP, CALL LIGHT WITHIN REACH.
--- NOTE | 2017-08-26 09:00 | NUR ---
ICU/RN:SEDATION VACATION SEDATION VACATION UNABLE TO DO SINCE PT IS TACHYPNEIC. PER MD WE ARE TO KEEP TITRATING DIPRIVAN TO KEEP RR <35. WILL CONTINUE TO CLOSELY MONITOR AND ASSESS
[2017-08-26 09:37] LABS: ABG BASE EXCESS 5.1 mmol/L; ABG PCO2 51.6 mmHg (35.0-45.0); ABG PH 7.394 (7.350-7.450); ABG PO2 63.9 mmHg (75.0-100.0); AaDO2 307.1 mmHg; COHb 0.2 % (0.5-1.5); MetHb 0.8 % (0.0-1.5); O2Hb 91.1 % (94.0-97.0); PEEP,BG 5 cm H2O; SITE, ABG Left Radial; VT, ABG 500 mL
[2017-08-26] MEDS: LACTOBACILLUS RHAMNOSUS GG 1 EACH CAP.SPRINK PO SCH ×2 (09:45→17:51)
[2017-08-26] MEDS: HYDROGEL DRESSING 90 GM TUBE TP SCH (09:45)
[2017-08-26] MEDS: DOCUSATE SODIUM LIQ 100 MG/10 ML UDC GT SCH ×2 (09:45→17:51)
[2017-08-26] MEDS: AMANTADINE HCL 100 MG CAPSULE GT SCH ×2 (09:45→17:51)
[2017-08-26] MEDS: NEOMY SULF/BACITRAC ZN/POLY 15 GM TUBE TP SCH (09:46)
[2017-08-26] MEDS: Z GUARD REMEDY 2 OZ OINT TP SCH (09:46)
[2017-08-26] MEDS: PROSOURCE / PROSTAT (PYXIS) 30 ML UDC GT SCH (09:55)
--- NOTE | 2017-08-26 17:20 | NUR ---
ICU/RN: CODE CALLED 3614-PT NOTED BRADYCARDIC, HR 30-32, SBP IN 60'S, CODE BLUE CALLED. PT THEN NOTED TO HAVE PULSE. NO CPR INITIATED. PER MD ATROPINE GIVEN. HR RESUMED. TO >50, WILL CONTINUE TO MONITOR BP, ORDERS FOR LEVO RECEIVED. WILL CONTINUE TO CLOSELY MONITOR VITALS AND PT.
[2017-08-26] MEDS: FIBERSOURCE HN 1,000 ML BOTTLE GT PRN (17:51)
--- NOTE | 2017-08-26 18:00 | NUR ---
RT END OF THE SHIFT REPORT, PT. 76 Y OLD MALE REMAIN TRACHED SHILEY # 8 ON [facility]. VENT.WITH NOTED SETTINGS, 1710 PLACED ON 100% AND D/C PEEP PER DR. GONZALEZ AT AT THE BEDSIDE. POST CODE BLUE ALARMS ARE SET AND FUNCTIONAL. EQUAL CHEST RISE NOTED, BILATERALLY CLEAR/FINE SUX'D FOR MINIMAL WHITE SECRETIONS. TX'S GIVEN INLINE AND NO ADVERSE REACTION NOTED. 3'RD DOSE NOT GIVEN LOW B/P VENT PLUGGED INTO RED OUTLET. AMBU BAG AT THE BEDSIDE. CONTINUE FOR MONITOR AND CARE. REPORT WILL PASS TO PM SHIFT. Addendum: 08/26/17 at 1802 by MO DODGE RT Amended: Links added.
[2017-08-26] MEDS: NOREPINEPHRINE 8 MG in IV D5W 500 ML IV PRN (18:45)
--- NOTE | 2017-08-26 18:45 | NUR ---
ICU/RN: LEVOPHED INITIATED PER MD ORDER. SBP IN 70S. WILL CONTINUE TO MONITOR
--- NOTE | 2017-08-26 19:30 | NUR ---
COACH OPERATOR INITIAL NOTE RECEIVED REPORT FROM SHADI RN. PER DAY NURSE CODE ROSAURA WAS CALLED TODAY. PT IN BED. TRACHED AND SEDATED. VENT SETTINGS AC 18, TV 500, FIO2 100%, PEEP 8. SEDATED ON PROPOFOL, GOAL IS TO KEEP RESPIRATIONS LESS THAN 25, PROPOFOL CURRENTLY RUNNING AT 80MCG. LUNG SOUNDS RHONCHI. BOWEL SOUNDS PRESENT. PEG INTACT WITH FEEDING RUNNING AT 40ML. LEBLANC INTACT AND DRAINING URINE. IV PATENT AND INTACT. PULSES PRESENT. WILL CONTINUE TO MONITOR.
--- NOTE | 2017-08-26 19:47 | NUR ---
ICU/RN ENDING NOTES,AM REPORT ENDORSED TO NIGHT NURSE FOR KRISTOFER. PT ON TRACH TO VENT WITH SETTINGS ORDERED. POST CODE PT STABLE, HR SINUS. ALL NEEDS MET, 2 MCG LEVO FOR BP SUPPORT. ALL NEEDS ATTENDED TO, SAFETY MEASURE TAKEN, BED IN LOW POSITION, SIDE RAILS UP, CALL LIGHT WITHIN REACH. WILL CONTINUE CARE.
[2017-08-26] MEDS: CARBIDOPA/LEV CR 50/200 MG 1 UDTAB.SA GT SCH (21:50)
[2017-08-27] VITALS (106 sets, daily range): BP systolic 79–155; BP diastolic 30–62
[2017-08-27] MEDS: PROPOFOL 10MG/ML 50ML 50 ML IV PRN ×15 (00:01→23:28)
[2017-08-27] MEDS: ALBUTEROL HALF STRENGTH 1.25 MG/3 ML VIAL.NEB NEB SCH ×6 (03:46→23:27)
[2017-08-27] MEDS: IPRATROPIUM NEB FS 0.5 MG/2.5 ML AMPUL.NEB NEB SCH ×6 (03:46→23:27)
[2017-08-27] MEDS: METOCLOPRAMIDE HCL 10 MG/2 ML VIAL IV SCH ×3 (05:08→21:12)
[2017-08-27] MEDS: IV NS 0.9% 1,000 ML IV PRN ×3 (05:19→17:50)
--- NOTE | 2017-08-27 07:53 | NUR ---
ICU/RN INITIAL NOTES,AM RECEIVED REPORT FROM NIGHT NURSE. PT SEDATED ON 80 MCG DIPRIVAN. PT ON VENT ORDERED BY MD VIA TRACH. NO ACUTE DISTRESS NOTED. IV FLUIDS INFUSING ORDERED. SINUS EDINSON 54 ON TELE. LOW DOSE LEVOPHED INFUSING FOR BP SUPPORT, WILL TITRATE PER PROTOCOL. GTUBE FEEDING INFUSING ORDERED, TOLERATING WELL. LEBLANC IN PLACE, MINIMAL URINE OUTPUT NOTED. MIDLINE AND PIV'S PATENT AND INTACT, NO S/S OF INFECTION OR INFILTRATION NOTED. ALL NEEDS WILL BE ATTENDED TO, SAFETY MEASURES TAKEN, BED IN LOW POSITION, SIDE RAILS UP, CALL LIGHT WITHIN REACH.
--- NOTE | 2017-08-27 09:09 | NUR ---
ABG RESULTS REPORTED TO . TIDAL VOLUME INCREASED TO 550 PER MD. Addendum: 08/27/17 at 1818 by ALCIDES MONZON RT COPY OF ABG SAMPLE REPORT WAS PLACED IN THE CHART
[2017-08-27] MEDS: LACTOBACILLUS RHAMNOSUS GG 1 EACH CAP.SPRINK PO SCH ×2 (09:23→17:50)
[2017-08-27] MEDS: DOCUSATE SODIUM LIQ 100 MG/10 ML UDC GT SCH ×2 (09:23→17:50)
[2017-08-27] MEDS: AMANTADINE HCL 100 MG CAPSULE GT SCH ×2 (09:23→17:50)
[2017-08-27] MEDS: Z GUARD REMEDY 2 OZ OINT TP SCH (09:24)
[2017-08-27] MEDS: HYDROGEL DRESSING 90 GM TUBE TP SCH (09:25)
[2017-08-27] MEDS: PROSOURCE / PROSTAT (PYXIS) 30 ML UDC GT SCH (09:26)
[2017-08-27] MEDS: NEOMY SULF/BACITRAC ZN/POLY 15 GM TUBE TP SCH (09:28)
[2017-08-27 10:03] LABS: CARBON DIOXIDE 28 mmol/L (21-32); CHLORIDE 113 mmol/L (98-107); CREATININE 1.6 mg/dL (0.6-1.3); GLUCOSE 116 mg/dL (74-106); SODIUM SERUM 144 mmol/L (136-145); UREA NITROGEN, BLOOD 64 mg/dL (7-18)
--- NOTE | 2017-08-27 10:10 | NUR ---
ICU/RN: CRITICAL LAB FOR POTASSIUM OF 6.8. AWARE. ORDERS RECEIVED, WILL FOLLOW THROUGH
[2017-08-27 10:11] LABS: POTASSIUM 6.8 mmol/L (3.5-5.1)
--- NOTE | 2017-08-27 10:35 | NUR ---
ICU/RN: AT BEDSIDE, PT RHYTHM CHANGING TO JUNCTIONAL WITH NO RATE CHANGE OR BP CHANGE. GOING BACK AND FORTH TO JENNIFER AND ARNAUD. WILL CONTINUE TO MONITOR. NO NEW ORDERS AT THIS TIME. WILL CONTINUE TO MONITOR
[2017-08-27] MEDS ORDERED: INSULIN REGULAR, HUMAN 100 UNIT/ML 3 ML VIAL SQ ONE (12:30)
[2017-08-27] MEDS ORDERED: SODIUM BICARBONATE SYR 50 MEQ/50 ML DISP.SYRIN IV ONE (12:30)
[2017-08-27] MEDS ORDERED: DEXTROSE 50%-WATER 50 ML DISP.SYRIN IVP ONE (12:30)
[2017-08-27] MEDS ORDERED: ALBUTEROL FS 2.5 MG/3 ML VIAL.NEB NEB ONE (12:30)
[2017-08-27] MEDS ORDERED: EPINEPHRINE (1:10,000) SYRINGE 1 MG/10 ML DISP.SYRIN IVP ONE (14:00)
[2017-08-27] MEDS ORDERED: ATROPINE SULFATE INJ 1 MG/ML VIAL IV ONE (14:00)
--- NOTE | 2017-08-27 14:35 | NUR ---
PATIENT RECEIVED WITH #[address] ON PB 840 VENT. ALARMS VERIFIED AND AUDIBLE. SUCTIONED AND LAVAGED SMALL AMOUNT OF COFFEY/BLOODY TINGED SECRETIONS. VENT SETTINGS AND CHANGES MADE PER MD ORDER. ONE TIME CONTINUOUS TREATMENT GIVEN PER MD. VENT PLUGGED INTO RED OUTLET. [facility]BU BAG AT [facility].
[2017-08-27 15:30] LABS: BASOPHILS # (AUTO) 0.1 /CMM (0.0-0.2); BASOPHILS % (AUTO) 0.8 % (0.0-2.0); EOSINOPHILS # (AUTO) 0.3 /CMM (0.0-0.7); EOSINOPHILS % (AUTO) 2.2 % (0.0-6.0); HEMATOCRIT 30 % (39-51); HEMOGLOBIN 10.1 g/dL (13.5-17.5); LYMPHOCYTES # (AUTO) 0.5 /CMM (0.8-4.8); LYMPHOCYTES % (AUTO) 3.8 % (20.0-44.0); MEAN CORPUSCULAR HEMOGLOBIN 30 PG (26.0-33.0); MEAN CORPUSCULAR HGB CONC 34 g/dl (31.0-36.0); MEAN CORPUSCULAR VOLUME 87 fL (80-96); MONOCYTES # (AUTO) 0.5 /CMM (0.1-1.30); MONOCYTES % (AUTO) 3.9 % (2.0-12.0); NEUTROPHILS # (AUTO) 11.4 /CMM (1.8-8.9); NEUTROPHILS % (AUTO) 89.3 % (43.0-81.0); PLATELET COUNT (AUTO) 63 /CMM (150-450); RDW COEFFICIENT OF VARIATION 16.2 (11.5-15.0); RED BLOOD CELL COUNT(AUTO) 3.44 MIL/uL (4.5-6.0); WHITE BLOOD COUNT (AUTO) 12.8 K/uL (4.3-11.0)
--- NOTE | 2017-08-27 16:08 | NUR ---
RT NOTE: LARGE AMOUNT OF COFFEY FLUID OOZING OUT OF STOMA. DEEP TRACHEAL SUCTIONED AND LAVAGED TRACH WITH NO SECRETIONS OBTAINED. TRACH CUFF IS INFLATED. RN ([facility]) AWARE AND HAS STOPPED PATIENT'S FEEDING.
--- NOTE | 2017-08-27 16:10 | NUR ---
ICU/RN: LARGE AMOUNT OF COFFEY FLUID OOZING OUT OF STOMA. DEEP TRACHEAL SUCTIONED WITH NO SECRETIONS OBTAINED. TUBE FEEDING STOPPED, MD NOTIFIED.
--- NOTE | 2017-08-27 18:57 | NUR ---
ICU/RN ENDING NOTES,AM REPORT ENDORSED TO NIGHT NURSE FOR KRISTOFER. PT ON TRACH TO VENT WITH SETTINGS ORDERED. ALL NEEDS MET, 2 MCG LEVO FOR BP SUPPORT. ALL NEEDS ATTENDED TO, SAFETY MEASURE TAKEN, BED IN LOW POSITION, SIDE RAILS UP, CALL LIGHT WITHIN REACH. WILL CONTINUE CARE. TUBE FEEDING STOPPED, WILL CONTINUE TO MONITOR
[2017-08-27] MEDS: NOREPINEPHRINE 8 MG in IV D5W 500 ML IV PRN (19:10)
--- NOTE | 2017-08-27 19:20 | NUR ---
PARKING LINE PAINTER INITIAL NOTE RECEIVED REPORT FROM SHADI JOYNER. PT IN BED. TRACHED AND SEDATED. VENT SETTINGS AC 18 TV 550 FIO2 60% PEEP 8. SEDATED ON PROPOFOL 80MCG. RR 24. LUNG SOUNDS RHONCHI. BOWEL SOUNDS PRESENT. GT PATENT AND INTACT WITH FEEDING ON HOLD AT THIS TIME. IV PATENT AND INTACT. PULSES PRESENT. REPOSITIONED FOR COMFORT. BED IN LOW LOCKED POSITION. WILL CONTINUE TO MONITOR.
--- NOTE | 2017-08-27 19:38 | NUR ---
Received pt on vent support, pt is stable on current vent settings no sob or distress noted, alarms are on and audible, ventilator in plugged into red outlet , ambu bag at bedside. Addendum: 08/27/17 at 1938 by CATHERINE GAGNON RT Amended: Links added.
[2017-08-27 20:12] LABS: BAND % (MANUAL) 21 % (0.0-5.0); EOSINOPHILS % (MANUAL) 1 % (0-4); LYMPHOCYTES % (MANUAL) 8 % (16-48); MONOCYTES % (MANUAL) 5 % (0-11.0); NEUTROPHILS % (MANUAL) 65 (42-76)
[2017-08-27] MEDS: CARBIDOPA/LEV CR 50/200 MG 1 UDTAB.SA GT SCH (21:12)
[2017-08-28] VITALS (48 sets, daily range): BP systolic 62–134; BP diastolic 35–57
[2017-08-28] MEDS: PROPOFOL 10MG/ML 50ML 50 ML IV PRN ×7 (01:03→10:27)
[2017-08-28] MEDS: ALBUTEROL HALF STRENGTH 1.25 MG/3 ML VIAL.NEB NEB SCH ×2 (02:40→07:37)
[2017-08-28] MEDS: IPRATROPIUM NEB FS 0.5 MG/2.5 ML AMPUL.NEB NEB SCH ×2 (02:40→07:37)
[2017-08-28] MEDS: IV NS 0.9% 1,000 ML IV PRN (05:04)
[2017-08-28] MEDS: METOCLOPRAMIDE HCL 10 MG/2 ML VIAL IV SCH (05:04)
[2017-08-28 06:01] LABS: CALCIUM, SERUM 9.4 mg/dL (8.5-10.1); CREATININE 1.6 mg/dL (0.6-1.3); GLUCOSE 53 mg/dL (74-106); UREA NITROGEN, BLOOD 66 mg/dL (7-18)
[2017-08-28 06:08] LABS: CARBON DIOXIDE 29 mmol/L (21-32); CHLORIDE 110 mmol/L (98-107); POTASSIUM 6.1 mmol/L (3.5-5.1); SODIUM SERUM 143 mmol/L (136-145)
--- NOTE | 2017-08-28 07:49 | NUR ---
INITIAL HARVESTER OPERATOR NOTE RCVD PT SEDATED ON DIPRIVAN, JUNCTIONAL RHYTHM ON TELE. TOLERATING ORDERED VENT SETTINGS. PEG CLAMPED 200ML RESIDUAL OBTAINED UPON CHECKING FOR PLACEMENT BY AUSCULTATION/ASPIRATION. [place] TO GRAVITY DRAINING CLOUDY, YELLOW URINE. IV SITES C/D/I/PATENT. NO S/O INFILTRATION/PHLEBITIS OBSERVED IVF INFUSING. WILL CONTINUE TO MONITOR PT FOR SAFETY AND COMFORT. CALL LIGHT WITHIN REACH.
[2017-08-28] MEDS: LACTOBACILLUS RHAMNOSUS GG 1 EACH CAP.SPRINK PO SCH (08:44)
[2017-08-28] MEDS: AMANTADINE HCL 100 MG CAPSULE GT SCH (08:44)
[2017-08-28] MEDS: DOCUSATE SODIUM LIQ 100 MG/10 ML UDC GT SCH (08:44)
[2017-08-28] MEDS: HYDROGEL DRESSING 90 GM TUBE TP SCH (08:45)
[2017-08-28] MEDS: NEOMY SULF/BACITRAC ZN/POLY 15 GM TUBE TP SCH (08:46)
[2017-08-28] MEDS: Z GUARD REMEDY 2 OZ OINT TP SCH (08:46)
[2017-08-28] MEDS: ERGOCALCIFEROL (VITAMIN D 2) 50,000 UNIT CAPSULE GT SCH (08:50)
[2017-08-28] MEDS: PROSOURCE / PROSTAT (PYXIS) 30 ML UDC GT SCH (08:50)
--- NOTE | 2017-08-28 09:11 | NUR ---
POWDER SHOVELER NOTE LM IN DR. CAM'S OFFICE REPORTING K 6.1 THIS AM WITH CA. WAITING FOR CALL BACK.
--- NOTE | 2017-08-28 09:25 | NUR ---
RT ABG RESULTS REPORTED TO FREDY JOYNER.
[2017-08-28] MEDS ORDERED: METOCLOPRAMIDE HCL 10 MG/2 ML VIAL IV SCH (09:30)
[2017-08-28] MEDS ORDERED: SODIUM POLYSTYRENE SULFONATE 15 G/60 ML BOTTLE RC ONE (09:30)
[2017-08-28] MEDS ORDERED: ALBUTEROL FS 2.5 MG/3 ML VIAL.NEB NEB ONE (09:30)
[2017-08-28 09:41] LABS: ABG BASE EXCESS 1.4 mmol/L; ABG OXYGEN SATURATION 91.1 % (92.0-98.5); ABG PCO2 57.8 mmHg (35.0-45.0); ABG PH 7.312 (7.350-7.450); ABG PO2 64.6 mmHg (75.0-100.0); AaDO2 299.6 mmHg; COHb 0.3 % (0.5-1.5); MetHb 0.3 % (0.0-1.5); O2Hb 90.6 % (94.0-97.0); PEEP,BG 8 cm H2O; SITE, ABG Left Radial; VT, ABG 550 mL
--- NOTE | 2017-08-28 09:50 | NUR ---
BIOMEDICAL INSTRUMENT TECHNICIAN NOTE DR. GONZALEZ IN UNIT INFORMED HIM OF PT'S K 6.1, HIGH RESIDUALS THIS AM. HE RECOMMENDED TO GIVE KAYEXALATE RECTALLY, AND CHANGE REGLAN TO 10MG EVERY 8H. TO GIVE ALBUTEROL TX OVER 2 HRS AND DRAW ABG. RT MEHUL INFORMED.
--- NOTE | 2017-08-28 11:37 | NUR ---
SALES AGENT FOOD VENDING SERVICE NOTE PT'S RHYTHM CHANGED FROM JUNCTIONAL TO AGONAL. PT FOUND TO BE PULSELESS, CODE BLUE CALLED. CPR INITIATED, PT BAGGED BY RT. DR. GONZALEZ AT BEDSIDE PROVIDING ORDERS. PT WAS GIVEN EPI AND ATROPINE WITHOUT RESPONSE. DR. GONZALEZ DISCONTINUE CODE AND PRONOUNCED PT. PT'S SON, GRISELDA CALLED AND MESSAGE LEFT TO CALL HOSPITAL TO PROVIDE INFORMATION. [facility] CALLED REFERENCE #: [id number].
--- NOTE | 2017-08-28 11:37 | NUR ---
RT NOTE: ASSISTED WITH SUDHA KAPLAN. SUDHA BLUE STOPPED BY .
== END 2017-08-28 11:14 | disposition expired | DRG 4 ==
LOC: ER 08:33 → TELE 10:03 → ICU 11:39
PROVIDERS: ADMIT Legal Medicine; ATTEND Legal Medicine
PROC: 5A09457 Assistance with Respiratory Ventilation, 24-96 Consecutive Hours, Continuous Positive Airway Pressure (ICD-10-PCS; 2017-08-12)
PROC: 05H533Z Insertion of Infusion Device into Right Subclavian Vein, Percutaneous Approach (ICD-10-PCS; 2017-08-13)
PROC: B546ZZA Ultrasonography of Right Subclavian Vein, Guidance (ICD-10-PCS; 2017-08-13)
PROC: 5A1955Z Respiratory Ventilation, Greater than 96 Consecutive Hours (ICD-10-PCS; principal; 2017-08-15)
PROC: 0BH17EZ Insertion of Endotracheal Airway into Trachea, Via Natural or Artificial Opening (ICD-10-PCS; 2017-08-15)
PROC: 05H533Z Insertion of Infusion Device into Right Subclavian Vein, Percutaneous Approach (ICD-10-PCS; 2017-08-18)
PROC: B546ZZA Ultrasonography of Right Subclavian Vein, Guidance (ICD-10-PCS; 2017-08-18)
PROC: 0B110F4 Bypass Trachea to Cutaneous with Tracheostomy Device, Open Approach (ICD-10-PCS; 2017-08-20)
PROC: 30233N1 Transfusion of Nonautologous Red Blood Cells into Peripheral Vein, Percutaneous Approach (ICD-10-PCS; 2017-08-23)
PROC: 5A2204Z Restoration of Cardiac Rhythm, Single (ICD-10-PCS; 2017-08-28)
DX: A41.9 Sepsis, unspecified organism (principal); J69.0 Pneumonitis due to inhalation of food and vomit; I21.A1 Myocardial infarction type 2; E43 Unspecified severe protein-calorie malnutrition; J15.6 Pneumonia due to other Gram-negative bacteria; G92 Toxic encephalopathy; G93.1 Anoxic brain damage, not elsewhere classified; R13.10 Dysphagia, unspecified; J96.02 Acute respiratory failure with hypercapnia; J96.01 Acute respiratory failure with hypoxia; N17.9 Acute kidney failure, unspecified; I82.409 Acute embolism and thrombosis of unspecified deep veins of unspecified lower extremity; E87.0 Hyperosmolality and hypernatremia; E87.2 Acidosis; T79.7XXA Traumatic subcutaneous emphysema, initial encounter; D64.9 Anemia, unspecified; I12.9 Hypertensive chronic kidney disease with stage 1 through stage 4 chronic kidney disease, or unspecified chronic kidney disease; N18.9 Chronic kidney disease, unspecified; I25.2 Old myocardial infarction; D69.6 Thrombocytopenia, unspecified; F02.80 Dementia in other diseases classified elsewhere, unspecified severity, without behavioral disturbance, psychotic disturbance, mood disturbance, and anxiety; G20 Parkinson's disease; Z79.899 Other long term (current) drug therapy; Z86.718 Personal history of other venous thrombosis and embolism; Z79.01 Long term (current) use of anticoagulants; Z93.1 Gastrostomy status; Y95 Nosocomial condition; S51.812A Laceration without foreign body of left forearm, initial encounter; S51.811A Laceration without foreign body of right forearm, initial encounter; X58.XXXA Exposure to other specified factors, initial encounter; Y92.129 Unspecified place in nursing home as the place of occurrence of the external cause; K59.00 Constipation, unspecified
CPT/HCPCS: 31720; 36415; 36569; 36600; 71010-TC; 71045-TC; 74018; 80048-TC; 80076-TC; 80202-TC; 81000-TC; 82803-TC; 82962-TC; 83605-TC; 83735-TC; 83880; 84100-TC; 84132-TC; 84484-TC; 85025-TC; 85027-TC; 85610-TC; 85730-TC; 86850-TC; 86921-TC; 87040-TC; 87081-TC; 87086-TC; 92950-TC; 93307-TC; 93970-TC; 94002-TC; 94003-TC; 99082-TC; A4216; A4606; A4624; A6248; A6402; A7526; C1769; J0171; J0330; J0461; J0690; J1815; J1940; J1956; J2060; J2185; J2270; J2543; J2765; J2916; J3010; J3370; J3490; J7030; J7050; J7060; J7070; P9016-BL; Z7610